=== PATIENT | male | born 1995 | race Caucasian/White ===

== ENCOUNTER 2017-10-09 20:10 | Emergency (ER) | payer SELFPAY ==
--- NOTE | 2017-10-09 20:49 | ER ---
Nurse's Notes [facility] Name: Pablito Randolph Age: 21 yrs Sex: Male : 1995 Arrival Date: 10/09/2017 Time: 20:13 Bed 18 Private MD: Diagnosis: Acute pharyngitis Presentation: 10/09 20:23 Presenting complaint: Patient states: I had tonsillitis and pharyngitis 2 weeks ago. I aj1 took the amoxicillin they gave me at [place] and I felt better but Sunday all the sudden it hurts so bad to swallow that I can't stand it. Even talking hurts. Transition of care: patient was not received from another setting of care. Onset of symptoms was September 26, 2017. Risk Assessment: Do you want to hurt yourself or someone else? Patient reports no desire to harm self or others. Initial Sepsis Screen: Does the patient meet any 2 criteria? No. Patient's initial sepsis screen is negative. Does the patient have a suspected source of infection? No. Patient's initial sepsis screen is negative. Care prior to arrival: None. 20:23 Method Of Arrival: Ambulatory aj1 20:23 Acuity: CHUY 4 aj1 Triage Assessment: 20:25 General: Appears in no apparent distress. uncomfortable, Behavior is calm, cooperative, aj1 appropriate for age. Pain: Complains of pain in left aspect of posterior pharynx and right aspect of posterior pharynx Pain does not radiate. Pain currently is 4 out of 10 on a pain scale. at worst was 8 out of 10 on a pain scale. Quality of pain is described as sharp. EENT: Throat is reddened bilaterally. Historical: - Allergies: 20:25 No Known Allergies; aj1 - Home Meds: 20:25 None [Active]; aj1 - PMHx: 20:25 None; aj1 - PSHx: 20:25 None; aj1 - Immunization history:: Flu vaccine is not up to date. - Social history:: Smoking status: Patient uses tobacco products, 5 cigarettes a day. - Ebola Screening: : No symptoms or risks identified at this time. Screenin:30 Abuse screen: Denies threats or abuse. Denies injuries from another. Nutritional lp1 screening: No deficits noted. Tuberculosis screening: No symptoms or risk factors identified. Fall Risk None identified. Assessment: 20:43 General: Appears in no apparent distress. Behavior is calm, cooperative, appropriate lp1 for age. Pain: Complains of pain in neck and right aspect of posterior pharynx Pain currently is 5 out of 10 on a pain scale. Quality of pain is described as aching. Neuro: Level of Consciousness is awake, alert, obeys commands. Cardiovascular: Patient's skin is warm and dry. Respiratory: Airway is patent Respiratory effort is even, unlabored, Breath sounds are clear bilaterally. GI: No signs and/or symptoms were reported involving the gastrointestinal system. : No signs and/or symptoms were reported regarding the genitourinary system. EENT: Throat has enlarged tonsils. Derm: Skin is pink, warm \T\ dry. Musculoskeletal: Circulation, motion, and sensation intact. Vital Signs: 20:25 BP 115 / 86; Pulse 85; Resp 18; Temp 98.0(TE); Pulse Ox 98% on R/A; Weight 108.86 kg aj1 (R); Height 6 ft. 2 in. (187.96 cm); Pain 4/10; 20:25 Body Mass Index 30.81 (108.86 kg, 187.96 cm) aj1 ED Course: 20:13 Patient arrived in ED. am2 20:16 Radha Alva FNP-C is [facility]. snw 20:16 Simon Brower MD is Attending Physician. snw 20:25 Triage completed. aj1 20:25 Arm band placed on Patient placed in an exam room. aj1 20:30 Verona Denis, RN is Primary Nurse. lp1 20:31 Patient has correct armband on for positive identification. lp1 20:44 No provider procedures requiring assistance completed. Patient did not have IV access lp1 during this emergency room visit. Administered Medications: 20:59 Drug: Decadron 8 mg Route: PO; lp1 21:24 Follow up: Response: No adverse reaction lp1 20:59 Drug: Pepcid 20 mg Route: PO; lp1 21:25 Follow up: Response: No adverse reaction lp1 Outcome: 20:48 Discharge ordered by . snw 21:23 Discharged to home ambulatory. lp1 21:23 Condition: good 21:23 Discharge instructions given to patient, Instructed on discharge instructions, follow up and referral plans. medication usage, Demonstrated understanding of instructions, follow-up care, medications, Prescriptions given X 2. 21:24 Patient left the ED. lp1 Signatures: Emilee Mc RN RN aj1 Radha Alva, SHOT CORE DRILL OPERATOR HELPER-C SHOT CORE DRILL OPERATOR HELPER-Csnw Verona Denis RN RN lp1 Chelle Amato
--- NOTE | 2017-10-09 20:49 | EDPHYS ---
Physician Documentation [facility] Name: Pablito Randolph Age: 21 yrs Sex: Male : 1995 Arrival Date: 10/09/2017 Time: 20:13 Bed 18 Private MD: ED Physician Simon Brower HPI: 10/09 21:18 This 21 yrs old Male presents to ER via Ambulatory with complaints of Sore snw Throat. 21:18 The patient presents with sore throat. The patient describes throat pain as raw, snw scratchy. Onset: The symptoms/episode began/occurred 1 week(s) ago, and became worse and became persistent. Associated signs and symptoms: The patient has no apparent associated signs or symptoms. It is unknown whether or not the patient has had similar symptoms in the past. given amoxil for pharyngitis. Historical: - Allergies: 20:25 No Known Allergies; aj1 - Home Meds: 20:25 None [Active]; aj1 - PMHx: 20:25 None; aj1 - PSHx: 20:25 None; aj1 - Immunization history:: Flu vaccine is not up to date. - Social history:: Smoking status: Patient uses tobacco products, 5 cigarettes a day. - Ebola Screening: : No symptoms or risks identified at this time. ROS: 21:17 Constitutional: Negative for fever, chills, and weight loss, Eyes: Negative for injury, snw pain, redness, and discharge, Neck: Negative for injury, pain, and swelling, Cardiovascular: Negative for chest pain, palpitations, and edema, Respiratory: Negative for shortness of breath, cough, wheezing, and pleuritic chest pain, Abdomen/GI: Negative for abdominal pain, nausea, vomiting, diarrhea, and constipation, Back: Negative for injury and pain, : Negative for injury, bleeding, discharge, and swelling, MS/Extremity: Negative for injury and deformity, Skin: Negative for injury, rash, and discoloration, Neuro: Negative for headache, weakness, numbness, tingling, and seizure. 21:17 ENT: Positive for sore throat. Exam: 21:16 Constitutional: This is a well developed, well nourished patient who is awake, alert, snw and in no acute distress. Head/Face: Normocephalic, atraumatic. Eyes: Pupils equal round and reactive to light, extra-ocular motions intact. Lids and lashes normal. Conjunctiva and sclera are non-icteric and not injected. Cornea within normal limits. Periorbital areas with no swelling, redness, or edema. Neck: Trachea midline, no thyromegaly or masses palpated, and no cervical lymphadenopathy. Supple, full range of motion without nuchal rigidity, or vertebral point tenderness. No Meningismus. Chest/axilla: Normal chest wall appearance and motion. Nontender with no deformity. No lesions are appreciated. Cardiovascular: Regular rate and rhythm with a normal S1 and S2. No gallops, murmurs, or rubs. Normal PMI, no JVD. No pulse deficits. Respiratory: Lungs have equal breath sounds bilaterally, clear to auscultation and percussion. No rales, rhonchi or wheezes noted. No increased work of breathing, no retractions or nasal flaring. Abdomen/GI: Soft, non-tender, with normal bowel sounds. No distension or tympany. No guarding or rebound. No evidence of tenderness throughout. Back: No spinal tenderness. No costovertebral tenderness. Full range of motion. Skin: Warm, dry with normal turgor. Normal color with no rashes, no lesions, and no evidence of cellulitis. MS/ Extremity: Pulses equal, no cyanosis. Neurovascular intact. Full, normal range of motion. Neuro: Awake and alert, GCS 15, oriented to person, place, time, and situation. Cranial nerves II-XII grossly intact. Motor strength 5/5 in all extremities. Sensory grossly intact. Cerebellar exam normal. Normal gait. 21:16 ENT: External ear(s): are unremarkable, Ear canal(s): are normal, TM's: are normal, Nose: is normal, Mouth: is normal, Posterior pharynx: Tonsils: bilaterally enlarged, with erythema, erythema, Voice: per pt. Vital Signs: 20:25 BP 115 / 86; Pulse 85; Resp 18; Temp 98.0(TE); Pulse Ox 98% on R/A; Weight 108.86 kg [facility] (R); Height 6 ft. 2 in. (187.96 cm); Pain 4/10; 20:25 Body Mass Index 30.81 (108.86 kg, 187.96 cm) [facility] MDM: 20:30 Patient medically screened. snw 21:17 Data reviewed: vital signs, nurses notes. Data interpreted: Pulse oximetry: on room air snw is 98 %. Interpretation: normal. Counseling: I had a detailed discussion with the patient and/or guardian regarding: the historical points, exam findings, and any diagnostic results supporting the discharge/admit diagnosis, the presence of at least one elevated blood pressure reading (>120/80) during this emergency department visit, the need for outpatient follow up, to return to the emergency department if symptoms worsen or persist or if there are any questions or concerns that arise at home. Special discussion: I have referred the patient to see his PCP for further evaluation of high blood pressure. Based on the history and exam findings, there is no indication for further emergent testing or inpatient evaluation. I discussed with the patient/guardian the need to see the primary care provider for further evaluation of the symptoms. ED course: no trismus. 10/09 20:17 Order name: Strep; Complete Time: 21:11 snw 10/09 21:04 Order name: Throat Culture EDMS Administered Medications: 20:59 Drug: Decadron 8 mg Route: PO; lp1 21:24 Follow up: Response: No adverse reaction lp1 20:59 Drug: Pepcid 20 mg Route: PO; lp1 21:25 Follow up: Response: No adverse reaction lp1 Disposition: 10/09/17 20:48 Discharged to Home. Impression: Acute pharyngitis. - Condition is Stable. - Discharge Instructions: Fever, Adult, Pharyngitis, Rehydration, Adult. - Prescriptions for Prednisone 20 mg Oral Tablet - take 2 tablet by ORAL route once daily for 5 days; 10 tablet. Zithromax 500 mg Oral Tablet - take 1 tablet by ORAL route once daily for 5 days; 5 tablet. - Work release form, Medication Reconciliation Form, Thank You Letter, Antibiotic Education, Prescription Opioid Use form. - Follow up: Private Physician; When: 2 - 3 days; Reason: Recheck today's complaints, Continuance of care, Re-evaluation by your physician. Follow up: Emergency Department; When: As needed; Reason: Worsening of condition. - Problem is an acute exacerbation. - Symptoms have worsened. Addendum: 10/11/2017 06:57 Co-signature as Attending Physician, Simon Brower MD I agree with the assessment and c lozano plan of care. Signatures: Dispatcher [employer] EDEmilee Caldwell, RN RN aj1 Simon Brower MD MD cha Therrien, Shelly, CURRICULUM MANAGER-C CURRICULUM MANAGER-Csnw Verona Denis, RN RN lp1 Corrections: (The following items were deleted from the chart) 10/09 20:56 20:48 10/09/2017 20:48 Discharged to Home. Impression: Acute pharyngitis. Condition is snw Stable. Forms are Medication Reconciliation Form, Thank You Letter, Antibiotic Education, Prescription Opioid Use. Follow up: Private Physician; When: 2 - 3 days; Reason: Recheck today's complaints, Continuance of care, Re-evaluation by your physician. Follow up: Emergency Department; When: As needed; Reason: Worsening of condition. snw 21:24 20:56 10/09/2017 20:48 Discharged to Home. Impression: Acute pharyngitis. Condition is lp1 Stable. Discharge Instructions: Fever, Adult, Pharyngitis, Rehydration, Adult. Prescriptions for Prednisone 20 mg Oral Tablet - take 2 tablet by ORAL route once daily for 5 days; 10 tablet, Zithromax 500 mg Oral Tablet - take 1 tablet by ORAL route once daily for 5 days; 5 tablet. and Forms are Medication Reconciliation Form, Thank You Letter, Antibiotic Education, Prescription Opioid Use. Follow up: Private Physician; When: 2 - 3 days; Reason: Recheck today's complaints, Continuance of care, Re-evaluation by your physician. Follow up: Emergency Department; When: As needed; Reason: Worsening of condition. Problem is an acute exacerbation. Symptoms have worsened. snw
[2017-10-09] MEDS ORDERED: FAMOTIDINE 20 MG TAB ONE (20:53)
[2017-10-09] MEDS ORDERED: DEXAMETHASONE 4 MG TAB ONE (20:53)
== END 2017-10-09 21:24 | disposition home or self-care (01) ==
LOC: ER 20:10
DX: J02.9 Acute pharyngitis, unspecified (principal); F17.210 Nicotine dependence, cigarettes, uncomplicated
CPT/HCPCS: 87070; 87081; 99283

== ENCOUNTER 2018-01-13 13:29 | Emergency (ER) | payer SELFPAY ==
[2018-01-13] MEDS ORDERED: DEXAMETHASONE 10 MG/ML VIAL ONE (14:49)
[2018-01-13] MEDS ORDERED: CLINDAMYCIN IV 150 MG/ML (4 mL) VIAL ONE (14:51)
[2018-01-13] MEDS ORDERED: IBUPROFEN 400 MG TAB ONE (15:03)
--- NOTE | 2018-01-13 15:54 | ER ---
Nurse's Notes [facility] Name: Pablito Randolph Age: 22 yrs Sex: Male : 1995 Arrival Date: 01/13/2018 Time: 13:32 Bed 30 Private MD: None, None Diagnosis: Acute pharyngitis Presentation: 01/13 14:11 Presenting complaint: Patient states: " I think I have strep again. I've had it 5 times ph in the last 3 months." Pt reports pain began yesterday, throat red and swollen w/ white patches noted, low grade fever in triage, denies N/V. Transition of care: patient was not received from another setting of care. Onset of symptoms was January 13, 2018. Risk Assessment: Do you want to hurt yourself or someone else? Patient reports no desire to harm self or others. Initial Sepsis Screen: Does the patient meet any 2 criteria? No. Patient's initial sepsis screen is negative. Does the patient have a suspected source of infection? No. Patient's initial sepsis screen is negative. Care prior to arrival: None. 14:11 Method Of Arrival: Ambulatory ph 14:11 Acuity: CHUY 4 ph Historical: - Allergies: 14:13 No Known Allergies; ph - Home Meds: 14:13 None [Active]; ph - PMHx: 14:13 None; ph - PSHx: 14:13 None; ph - Immunization history:: Adult Immunizations unknown. - Social history:: Smoking status: unknown. - Ebola Screening: : No symptoms or risks identified at this time. Screenin:33 Abuse screen: Denies threats or abuse. Denies injuries from another. Nutritional sv screening: No deficits noted. Tuberculosis screening: No symptoms or risk factors identified. Fall Risk None identified. Assessment: 14:32 General: Appears in no apparent distress. uncomfortable, Behavior is calm, cooperative, sv appropriate for age. Pain: Complains of pain in uvula, left aspect of posterior pharynx and right aspect of posterior pharynx Pain currently is 10 out of 10 on a pain scale. Quality of pain is described as burning, Pain began 1 day ago. Is continuous. Neuro: Level of Consciousness is awake, alert, obeys commands, Oriented to person, place, time, situation, Moves all extremities. Full function Gait is steady. Cardiovascular: Patient's skin is warm and dry. Respiratory: Airway is patent Respiratory effort is even, unlabored, Respiratory pattern is regular, symmetrical. EENT: Oral mucosa is moist. Poor dentition noted. Throat is reddened has patchy exudate has enlarged tonsils bilaterally. Derm: Skin is normal. 16:09 Reassessment: Patient appears in no apparent distress at this time. Patient and/or sv family updated on plan of care and expected duration. Pain level reassessed. Patient is alert, oriented x 3, equal unlabored respirations, skin warm/dry/pink. Vital Signs: 14:12 BP 144 / 79; Pulse 105; Resp 20; Temp 100.2(O); Pulse Ox 97% on R/A; Weight 108.86 kg; ph Height 6 ft. 2 in. (187.96 cm); Pain 10/10; 14:12 Body Mass Index 30.81 (108.86 kg, 187.96 cm) ph ED Course: 13:32 Patient arrived in ED. sb2 13:33 None, None is Private Physician. sb2 14:12 Triage completed. ph 14:13 Arm band placed on Patient placed in waiting room, Patient notified of wait time. ph 14:24 Ebonie Ramos RN is Primary Nurse. sv 14:27 Jose Palmer PA is PHCP. jmm 14:27 Simon Brower MD is Attending Physician. jmm 14:28 Strep Sent. sv 14:33 Patient has correct armband on for positive identification. Bed in low position. Door sv closed. Head of bed elevated. 15:13 Throat Culture Sent. sv 15:53 Ebonie Franklin MD is Referral Physician. [facility] 16:09 No provider procedures requiring assistance completed. Patient did not have IV access sv during this emergency room visit. Administered Medications: 14:56 Drug: Clindamycin 300 mg Route: IM; Site: left gluteus; sv 15:14 Follow up: Response: No adverse reaction sv 14:56 Drug: Clindamycin 300 mg Route: IM; Site: right gluteus; sv 14:57 Drug: Dexamethasone 10 mg Route: IM; Site: left gluteus; sv 15:14 Follow up: Response: No adverse reaction sv 15:02 Drug: Motrin 800 mg Route: PO; sv 15:14 Follow up: Response: No adverse reaction sv Outcome: 15:53 Discharge ordered by MD. clayton 16:09 Discharged to home ambulatory, with friend. sv 16:09 Condition: stable 16:09 Discharge instructions given to patient, Instructed on discharge instructions, follow up and referral plans. medication usage, increase fluids Demonstrated understanding of instructions, follow-up care, medications, Prescriptions given X 1. 16:10 Patient left the ED. sv Signatures: Ebonie Ramos RN RN Jose Palmer PA PA jmm Hall, Patricia, RN RN Hal, Nayely sb2
--- NOTE | 2018-01-13 15:54 | EDPHYS ---
Physician Documentation [facility] Name: Pablito Randolph Age: 22 yrs Sex: Male : 1995 Arrival Date: 01/13/2018 Time: 13:32 Bed 30 Private MD: None, None ED Physician Simon Brower HPI: 01/13 14:44 This 22 yrs old Male presents to ER via Ambulatory with complaints of Fever, jmm Sore Throat. 14:44 The patient presents with sore throat. Onset: The symptoms/episode began/occurred jmm gradually, 1 day(s) ago. This is a 22 year old male with no chronic medical conditions that presents to the ED with sore throat and fever. Patient states he has been diagnosed with strep pharyngitis multiple times over the past 3 months. . Historical: - Allergies: 14:13 No Known Allergies; ph - Home Meds: 14:13 None [Active]; ph - PMHx: 14:13 None; ph - PSHx: 14:13 None; ph - Immunization history:: Adult Immunizations unknown. - Social history:: Smoking status: unknown. - Ebola Screening: : No symptoms or risks identified at this time. ROS: 14:44 Eyes: Negative for injury, pain, redness, and discharge. jm 14:44 Neck: Negative for injury, pain, and swelling, Cardiovascular: Negative for chest pain, palpitations, and edema, Respiratory: Negative for shortness of breath, cough, wheezing, and pleuritic chest pain. 14:44 Constitutional: Positive for fever. 14:44 ENT: Positive for sore throat. 14:50 All other systems are negative. [facility] Exam: 14:50 Head/Face: atraumatic. [facility] 14:50 Cardiovascular: Regular rate and rhythm. No edema appreciated Respiratory: Normal respirations, no respiratory distress appreciated 14:50 Constitutional: The patient appears in no acute distress, alert, awake. 14:50 ENT: Posterior pharynx: Tonsils: bilaterally enlarged, with erythema, with exudate, Uvula: midline, swelling, that is moderate, erythema, that is moderate, exudate, that is moderate, peritonsillar mass, is not appreciated, pooling of secretions, is not appreciated. 14:50 Skin: Appearance: Color: normal in color. 14:50 Neuro: Orientation: is normal, Mentation: is normal, Memory: is normal. 14:50 Psych: Behavior/mood is pleasant, cooperative. Vital Signs: 14:12 BP 144 / 79; Pulse 105; Resp 20; Temp 100.2(O); Pulse Ox 97% on R/A; Weight 108.86 kg; ph Height 6 ft. 2 in. (187.96 cm); Pain 10/10; 14:12 Body Mass Index 30.81 (108.86 kg, 187.96 cm) ph MDM: 14:40 Patient medically screened. [facility] 15:40 Data reviewed: vital signs, nurses notes. Counseling: I had a detailed discussion with [facility] the patient and/or guardian regarding: the historical points, exam findings, and any diagnostic results supporting the discharge/admit diagnosis, the need for outpatient follow up, to return to the emergency department if symptoms worsen or persist or if there are any questions or concerns that arise at home. 15:52 Response to treatment: the patient's symptoms have markedly improved after treatment. [facility] 01/13 14:11 Order name: Strep 01/13 14:11 Order name: Group A Streptococcus Rapid Sc; Complete Time: 15:33 EDMS 01/13 15:11 Order name: Throat Culture EDMS Administered Medications: 14:56 Drug: Clindamycin 300 mg Route: IM; Site: left gluteus; sv 15:14 Follow up: Response: No adverse reaction sv 14:56 Drug: Clindamycin 300 mg Route: IM; Site: right gluteus; sv 14:57 Drug: Dexamethasone 10 mg Route: IM; Site: left gluteus; sv 15:14 Follow up: Response: No adverse reaction sv 15:02 Drug: Motrin 800 mg Route: PO; sv 15:14 Follow up: Response: No adverse reaction sv Disposition: 01/14 06:48 Co-signature as Attending Physician, Simon Brower MD I agree with the assessment and [facility] plan of care. Disposition: 01/13/18 15:53 Discharged to Home. Impression: Acute pharyngitis. - Condition is Stable. - Discharge Instructions: Pharyngitis. - Prescriptions for Clindamycin HCl 150 mg Oral Capsule - take 2 capsule by ORAL route every 6 hours for 10 days; 80 capsule. - Medication Reconciliation Form, Thank You Letter, Antibiotic Education, Prescription Opioid Use form. - Follow up: Ebonie Franklin MD; When: 2 - 3 days; Reason: Recheck today's complaints, Continuance of care, Re-evaluation by your physician. - Notes: Please follow up with ENT for further evaluation. Please return to the ED if you develop difficulty breathing, increased swelling, vomiting, drooling, or any other concerning symptoms. Signatures: Dispatcher [employer] EDEbonie Aponte, LEILA RN Simon Sosa MD MD cha Mickail, Joel, PA PA jmm Hall, Patricia, RN RN ph Corrections: (The following items were deleted from the chart) 01/13 16:10 15:53 01/13/2018 15:53 Discharged to Home. Impression: Acute pharyngitis. Condition is sv Stable. Forms are Medication Reconciliation Form, Thank You Letter, Antibiotic Education, Prescription Opioid Use. Follow up: Ebonie Franklin; When: 2 - 3 days; Reason: Recheck today's complaints, Continuance of care, Re-evaluation by your physician. matilde
== END 2018-01-13 16:10 | disposition home or self-care (01) ==
LOC: ER 13:29
DX: J02.9 Acute pharyngitis, unspecified (principal); R50.9 Fever, unspecified
CPT/HCPCS: 87070; 87081; 96372; 99283; J1100; S0077

== ENCOUNTER 2018-01-25 22:15 | Emergency (ER) | payer SELFPAY ==
[2018-01-25] MEDS ORDERED: DEXAMETHASONE 4 MG/ML VIAL ONE (22:43)
[2018-01-25] MEDS ORDERED: KETOROLAC 30 MG/ML INJ ONE (22:44)
[2018-01-25] MEDS ORDERED: CLINDAMYCIN 900MG/D5W 900 MG/50 ML BAG IV ONE (22:44)
[2018-01-25] MEDS ORDERED: NA CHLORIDE 0.9% 1,000 ML ONE (22:44)
--- NOTE | 2018-01-25 23:18 | EDPHYS ---
Physician Documentation [facility] Name: Pablito Randolph Age: 22 yrs Sex: Male : 1995 Arrival Date: 01/25/2018 Time: 22:16 Bed 19 Private MD: ED Physician Ra Mack HPI: 01/25 22:34 This 22 yrs old Male presents to ER via Ambulatory with complaints of Sore wa Throat. 22:34 The patient presents with sore throat. The patient describes throat pain as constant. wa Onset: The symptoms/episode began/occurred 2 day(s) ago. Severity of symptoms: At their worst the symptoms were moderate, in the emergency department the symptoms are actually worse. Modifying factors: The symptoms are alleviated by nothing, the symptoms are aggravated by swallowing. Associated signs and symptoms: Pertinent positives: fever, Pertinent negatives nausea, rhinorrhea, vomiting. The patient has not experienced similar symptoms in the past. The patient has not recently seen a physician. Historical: - Allergies: 22:30 No Known Allergies; tl1 - Home Meds: 22:30 None [Active]; tl1 - PMHx: 22:30 ADD/ADHD; tl1 - PSHx: 22:30 None; tl1 - Immunization history:: Adult Immunizations up to date. - Social history:: Smoking status: Patient uses tobacco products, smokes one-half pack cigarettes per day. - Ebola Screening: : Patient negative for fever greater than or equal to 101.5 degrees Fahrenheit, and additional compatible Ebola Virus Disease symptoms Patient denies exposure to infectious person Patient denies travel to an Ebola-affected area in the 21 days before illness onset. - Family history:: not pertinent. - Hospitalizations: : No recent hospitalization is reported. ROS: 22:39 Eyes: Negative for injury, pain, redness, and discharge, Neck: Negative for injury, wa pain, and swelling, Cardiovascular: Negative for chest pain, palpitations, and edema, Respiratory: Negative for shortness of breath, cough, wheezing, and pleuritic chest pain, Abdomen/GI: Negative for abdominal pain, nausea, vomiting, diarrhea, and constipation, Back: Negative for injury and pain, MS/Extremity: Negative for injury and deformity, Skin: Negative for injury, rash, and discoloration, Neuro: Negative for headache, weakness, numbness, tingling, and seizure, Psych: Negative for depression, anxiety, suicide ideation, homicidal ideation, and hallucinations. 22:39 Constitutional: Positive for fever. 22:39 ENT: Positive for sore throat, Negative for nasal discharge, rhinorrhea, sinus congestion. 22:39 All other systems are negative. Exam: 22:40 Constitutional: This is a well developed, well nourished patient who is awake, alert, wa and in no acute distress. Head/Face: Normocephalic, atraumatic. Eyes: Pupils equal round and reactive to light, extra-ocular motions intact. Lids and lashes normal. Conjunctiva and sclera are non-icteric and not injected. Cornea within normal limits. Periorbital areas with no swelling, redness, or edema. Neck: Trachea midline, no thyromegaly or masses palpated, and no cervical lymphadenopathy. Supple, full range of motion without nuchal rigidity, or vertebral point tenderness. No Meningismus. Cardiovascular: Regular rate and rhythm with a normal S1 and S2. No gallops, murmurs, or rubs. Normal PMI, no JVD. No pulse deficits. Respiratory: Lungs have equal breath sounds bilaterally, clear to auscultation and percussion. No rales, rhonchi or wheezes noted. No increased work of breathing, no retractions or nasal flaring. Abdomen/GI: Soft, non-tender, with normal bowel sounds. No distension or tympany. No guarding or rebound. No evidence of tenderness throughout. Back: No spinal tenderness. No costovertebral tenderness. Full range of motion. Skin: Warm, dry with normal turgor. Normal color with no rashes, no lesions, and no evidence of cellulitis. MS/ Extremity: Pulses equal, no cyanosis. Neurovascular intact. Full, normal range of motion. Neuro: Awake and alert, GCS 15, oriented to person, place, time, and situation. Cranial nerves II-XII grossly intact. Motor strength 5/5 in all extremities. Sensory grossly intact. Cerebellar exam normal. Normal gait. 22:40 ENT: Posterior pharynx: Tonsils: bilaterally enlarged, with erythema, Uvula: midline, non-edematous, erythema, that is moderate, exudate, that is mild, peritonsillar mass, is not appreciated. Vital Signs: 22:31 BP 138 / 96; Pulse 102; Resp 17; Temp 98.6; Pulse Ox 99% ; Pain 8/10; tl1 23:31 BP 111 / 68; Pulse 94; Resp 16; Temp 98.7; Pulse Ox 98% on R/A; Pain 3/10; tl1 MDM: 22:26 Patient medically screened. me 22:43 Differential diagnosis: pharyngitis, viral syndrome r/o strep. will treat symptoms and wa reassess. 23:15 Data reviewed: vital signs, nurses notes. me 23:16 Test interpretation: by ED physician or midlevel provider: strep screen negative. wa Response to treatment: the patient's symptoms have markedly improved after treatment. 01/25 22:32 Order name: Strep me 01/25 23:06 Order name: Throat Culture [facility] 01/25 22:32 Order name: IV Start; Complete Time: 22:34 me Administered Medications: 22:46 Drug: NS 0.9% 1000 ml Route: IV; Rate: 1 bolus; Site: right antecubital; tl2 23:33 Follow up: IV Status: Completed infusion tl1 22:46 Drug: TORadol 30 mg Route: IVP; Site: right antecubital; tl2 23:29 Follow up: Response: No adverse reaction; Marked relief of symptoms; Pain is decreased tl1 22:47 Drug: Decadron - Dexamethasone 10 mg Route: IVP; Site: right antecubital; tl2 23:29 Follow up: Response: No adverse reaction; Marked relief of symptoms; Pain is decreased tl1 22:47 Drug: Clindamycin 900 mg Route: IVPB; Infused Over: 30 mins; Site: right antecubital; tl2 23:11 Follow up: IV Status: Completed infusion tl1 Disposition: 01/25/18 23:17 Discharged to Home. Impression: Acute pharyngitis. - Condition is Stable. - Prescriptions for Augmentin 875- 125 mg Oral Tablet - take 1 tablet by ORAL route every 12 hours for 7 days; 14 tablet. Prednisone 20 mg Oral Tablet - take 2 tablet by ORAL route once daily for 4 days; 8 tablet. Ibuprofen 600 mg Oral Tablet - take 1 tablet by ORAL route every 6 hours As needed take with food; 30 tablet. - Medication Reconciliation Form, Thank You Letter, Antibiotic Education, Prescription Opioid Use form. - Follow up: Ebonie Franklin MD; When: 1 - 2 days; Reason: Recheck today's complaints, Re-evaluation by your physician. - Problem is new. - Symptoms have improved. - Notes: take medication as prescribed. see the ENT doctor for further evaluation into why you keep getting throat infections Signatures: Dispatcher [employer]SC Naty Joshua, RN RN tl1 Sunita Tobar RN RN tl2 Ra Mack MD MD wa Corrections: (The following items were deleted from the chart) 23:33 23:17 01/25/2018 23:17 Discharged to Home. Impression: Acute pharyngitis. Condition is tl1 Stable. Forms are Medication Reconciliation Form, Thank You Letter, Antibiotic Education, Prescription Opioid Use. Follow up: Ebonie Franklin; When: 1 - 2 days; Reason: Recheck today's complaints, Re-evaluation by your physician. Problem is new. Symptoms have improved. wa
--- NOTE | 2018-01-25 23:18 | ER ---
Nurse's Notes [facility] Name: Pablito Randolph Age: 22 yrs Sex: Male : 1995 Arrival Date: 01/25/2018 Time: 22:16 Bed 19 Private MD: Diagnosis: Acute pharyngitis Presentation: 01/25 22:28 Presenting complaint: Patient states: I have a recurring sore throat. I just finished tl1 antibiotics yesterday. My left ear also hurts. Transition of care: patient was not received from another setting of care. Onset of symptoms was January 22, 2018. Risk Assessment: Do you want to hurt yourself or someone else? Patient reports no desire to harm self or others. Initial Sepsis Screen: Does the patient meet any 2 criteria? HR > 90 bpm. No. Patient's initial sepsis screen is negative. Does the patient have a suspected source of infection? No. Patient's initial sepsis screen is negative. Care prior to arrival: Medication(s) given: antibiotic therapy. 22:28 Method Of Arrival: Ambulatory tl1 22:28 Acuity: CHUY 4 tl1 Triage Assessment: 23:32 General: Behavior is calm, cooperative, appropriate for age. tl1 Historical: - Allergies: 22:30 No Known Allergies; tl1 - Home Meds: 22:30 None [Active]; tl1 - PMHx: 22:30 ADD/ADHD; tl1 - PSHx: 22:30 None; tl1 - Immunization history:: Adult Immunizations up to date. - Social history:: Smoking status: Patient uses tobacco products, smokes one-half pack cigarettes per day. - Ebola Screening: : Patient negative for fever greater than or equal to 101.5 degrees Fahrenheit, and additional compatible Ebola Virus Disease symptoms Patient denies exposure to infectious person Patient denies travel to an Ebola-affected area in the 21 days before illness onset. - Family history:: not pertinent. - Hospitalizations: : No recent hospitalization is reported. Screenin:33 Abuse screen: Denies threats or abuse. Denies injuries from another. Nutritional tl1 screening: No deficits noted. Tuberculosis screening: No symptoms or risk factors identified. Fall Risk IV access (20 points). Assessment: 22:31 General: Appears in no apparent distress. Pain: Complains of pain in left aspect of tl1 posterior pharynx and right aspect of posterior pharynx Pain currently is 8 out of 10 on a pain scale. Quality of pain is described as sharp, stinging. Neuro: Level of Consciousness is awake, alert, obeys commands. Cardiovascular: Denies chest pain. Respiratory: Airway is patent Trachea midline Respiratory effort is even, unlabored, Breath sounds are clear bilaterally. GI: Bowel sounds present X 4 quads. Abd is soft and non tender X 4 quads. : No signs and/or symptoms were reported regarding the genitourinary system. EENT: Throat is reddened has enlarged tonsils Reports pain when swallowing. Derm: No deficits noted. 23:31 Reassessment: Patient and/or family updated on plan of care and expected duration. Pain tl1 level reassessed. Patient is alert, oriented x 3, equal unlabored respirations, skin warm/dry/pink. Patient states feeling better. Patient states symptoms have improved. Vital Signs: 22:31 BP 138 / 96; Pulse 102; Resp 17; Temp 98.6; Pulse Ox 99% ; Pain 8/10; tl1 23:31 BP 111 / 68; Pulse 94; Resp 16; Temp 98.7; Pulse Ox 98% on R/A; Pain 3/10; tl1 ED Course: 22:16 Patient arrived in ED. es 22:26 Ra Mack MD is Attending Physician. wa 22:28 Naty Joshua, LEILA is Primary Nurse. tl1 22:30 Triage completed. tl1 22:31 Arm band placed on right wrist. tl1 22:31 Patient has correct armband on for positive identification. Bed in low position. Call tl1 light in reach. Side rails up X 1. 22:33 No provider procedures requiring assistance completed. Inserted saline lock: 20 gauge tl1 in right antecubital area, using aseptic technique. Blood collected. 23:16 Ebonie Franklin MD is Referral Physician. wa 23:31 IV discontinued, intact, bleeding controlled, No redness/swelling at site. Pressure tl1 dressing applied. Administered Medications: 22:46 Drug: NS 0.9% 1000 ml Route: IV; Rate: 1 bolus; Site: right antecubital; tl2 23:33 Follow up: IV Status: Completed infusion tl1 22:46 Drug: TORadol 30 mg Route: IVP; Site: right antecubital; tl2 23:29 Follow up: Response: No adverse reaction; Marked relief of symptoms; Pain is decreased tl1 22:47 Drug: Decadron - Dexamethasone 10 mg Route: IVP; Site: right antecubital; tl2 23:29 Follow up: Response: No adverse reaction; Marked relief of symptoms; Pain is decreased tl1 22:47 Drug: Clindamycin 900 mg Route: IVPB; Infused Over: 30 mins; Site: right antecubital; tl2 23:11 Follow up: IV Status: Completed infusion tl1 Outcome: 23:17 Discharge ordered by . darien 23:31 Discharged to home ambulatory. tl1 23:31 Condition: good 23:31 Discharge instructions given to patient, Instructed on discharge instructions, follow up and referral plans. medication usage, Demonstrated understanding of instructions, follow-up care, medications, Prescriptions given X 3. 23:33 Patient left the ED. tl1 Signatures: Joyce Quinones Tonya, RN RN tl1 Sunita Tobar RN RN tl2 Ra Mack MD MD wa
== END 2018-01-25 23:33 | disposition home or self-care (01) ==
LOC: ER 22:15
DX: J02.9 Acute pharyngitis, unspecified (principal); F17.210 Nicotine dependence, cigarettes, uncomplicated
CPT/HCPCS: 87070; 87081; 96365; 96375; 99284; J7030

== ENCOUNTER 2018-03-05 08:55 | Emergency (ER) | payer SELFPAY ==
--- NOTE | 2018-03-05 09:32 | ER ---
Nurse's Notes [facility] Name: Pablito Randolph Age: 22 yrs Sex: Male : 1995 Arrival Date: 03/05/2018 Time: 08:57 Bed 20 Private MD: Diagnosis: Otitis media, unspecified, left ear Presentation: 03/05 09:08 Presenting complaint: Patient states: pressure to L ear started on , has been ch getting worse, this morning it was pounding. feels muffled, and i am slightly congested. Transition of care: patient was not received from another setting of care. Onset of symptoms was February 28, 2018. Risk Assessment: Do you want to hurt yourself or someone else? Patient reports no desire to harm self or others. Initial Sepsis Screen: Does the patient meet any 2 criteria? No. Patient's initial sepsis screen is negative. Does the patient have a suspected source of infection? No. Patient's initial sepsis screen is negative. Care prior to arrival: Medication(s) given: Motrin, 600 mg. 09:08 Method Of Arrival: Ambulatory 09:08 Acuity: CHUY 5 ch Triage Assessment: 09:09 General: Appears in no apparent distress. comfortable, Behavior is calm, cooperative, ch appropriate for age. Pain: Complains of pain in left ear. EENT: Reports pain in left ear. Historical: - Allergies: 09:09 No Known Allergies; ch - Home Meds: 09:09 None [Active]; ch - PMHx: 09:09 ADD/ADHD; ch - PSHx: 09:09 None; ch - Immunization history:: Adult Immunizations up to date, Last tetanus immunization: not indicated for visit today. unknown, Flu vaccine is not up to date. - Social history:: Smoking status: Patient uses tobacco products, smokes one-half pack cigarettes per day, Patient/guardian denies using alcohol, street drugs. - Ebola Screening: : Patient negative for fever greater than or equal to 101.5 degrees Fahrenheit, and additional compatible Ebola Virus Disease symptoms Patient denies exposure to infectious person Patient denies travel to an Ebola-affected area in the 21 days before illness onset No symptoms or risks identified at this time. Screenin:10 Abuse screen: Denies threats or abuse. Nutritional screening: No deficits noted. rb1 Tuberculosis screening: No symptoms or risk factors identified. Fall Risk None identified. Assessment: 09:10 General: Appears in no apparent distress. comfortable, Behavior is calm, cooperative, rb1 Denies fever. Pain: Complains of pain in left ear Pain currently is 4 out of 10 on a pain scale. Pain began . Neuro: Level of Consciousness is awake, alert, obeys commands, Oriented to person, place, time, situation. Cardiovascular: Capillary refill < 3 seconds is brisk in bilateral fingers. Respiratory: Airway is patent Respiratory effort is even, unlabored, Respiratory pattern is regular, symmetrical. GI: Reports diarrhea. : No signs and/or symptoms were reported regarding the genitourinary system. EENT: Reports nasal congestion. Derm: Skin is pink, warm \T\ dry. Musculoskeletal: Range of motion: intact in all extremities. Vital Signs: 09:09 BP 136 / 65; Pulse 59; Resp 12; Temp 97.7; Pulse Ox 97% on R/A; Weight 108.86 kg; Height 6 ft. 2 in. (187.96 cm); Pain 5/10; 09:09 Body Mass Index 30.81 (108.86 kg, 187.96 cm) ED Course: 08:57 Patient arrived in ED. as 09:09 Triage completed. 09:09 Arm band placed on left wrist. Patient placed in an exam room, on a stretcher. 09:10 Leticia Zayas, RN is Primary Nurse. [facility] 09:10 Patient has correct armband on for positive identification. Bed in low position. Call rb1 light in reach. Side rails up X 1. Pulse ox on. NIBP on. 09:15 Simon Erazo PA is PHCP. cp 09:15 Иван Ewing MD is Attending Physician. cp 09:37 No provider procedures requiring assistance completed. Patient did not have IV access rb1 during this emergency room visit. Administered Medications: No medications were administered Outcome: 09:31 Discharge ordered by . cp 09:37 Patient left the ED. hb 09:37 Discharged to home ambulatory. rb1 09:37 Condition: stable 09:37 Discharge instructions given to patient, Instructed on discharge instructions, follow up and referral plans. 09:37 Instructed on medication usage, Demonstrated understanding of instructions, follow-up rb1 care, medications, Prescriptions given X 2. Signatures: An Boyce RN RN Bernie Alva Corey, PA PA cp Barber, Rebecca, RN RN rb1 Bisi Alvarez RN RN Corrections: (The following items were deleted from the chart) 09:24 General: Appears in no apparent distress. comfortable, Behavior is calm, rb1 cooperative, Denies fever, rb1 09:24 Pain: Complains of pain in left ear Pain currently is 4 out of 10 on a pain rb1 scale. Pain began rb1 09:24 Neuro: Level of Consciousness is awake, alert, obeys commands, Oriented to rb1 person, place, time, situation, rb1 09:24 Cardiovascular: Capillary refill < 3 seconds is brisk in bilateral fingers rb1 rb1 09:24 Respiratory: Airway is patent Respiratory effort is even, unlabored, Respiratory rb1 pattern is regular, symmetrical, rb1 09:24 GI: Reports diarrhea, rb1 rb1 09:24 : No signs and/or symptoms were reported regarding the genitourinary system. [id number] 09:24 Respiratory: rb1 rb1 09:24 EENT: Reports nasal congestion rb1 rb1 09:24 Derm: Skin is pink, warm \T\ dry. rb1 rb1 09:24 Musculoskeletal: Range of motion: intact in all extremities, rb1 rb1
--- NOTE | 2018-03-05 09:32 | EDPHYS ---
Physician Documentation [facility] Name: Pablito Randolph Age: 22 yrs Sex: Male : 1995 Arrival Date: 03/05/2018 Time: 08:57 Bed 20 Private MD: ED Physician Иван Ewing HPI: 03/05 09:24 This 22 yrs old Male presents to ER via Ambulatory with complaints of Ear cp Pain. 09:24 The patient presents with a fullness, hearing loss, partial, pain, that is acute. The cp complaints affect the left ear. Onset: The symptoms/episode began/occurred last week. Associated signs and symptoms: Pertinent positives: nasal congestion, cough, Pertinent negatives: fever, shortness of breath, vertigo. Severity of symptoms: in the emergency department the symptoms are unchanged despite home interventions. Historical: - Allergies: 09:09 No Known Allergies; ch - Home Meds: : None [Active]; ch - PMHx: 09:09 ADD/ADHD; ch - PSHx: 09:09 None; ch - Immunization history:: Adult Immunizations up to date, Last tetanus immunization: not indicated for visit today. unknown, Flu vaccine is not up to date. - Social history:: Smoking status: Patient uses tobacco products, smokes one-half pack cigarettes per day, Patient/guardian denies using alcohol, street drugs. - Ebola Screening: : Patient negative for fever greater than or equal to 101.5 degrees Fahrenheit, and additional compatible Ebola Virus Disease symptoms Patient denies exposure to infectious person Patient denies travel to an Ebola-affected area in the 21 days before illness onset No symptoms or risks identified at this time. ROS: 09:26 Eyes: Negative for injury, pain, redness, and discharge. cp 09:26 Constitutional: Negative for body aches, chills, fever, poor PO intake. 09:26 ENT: Positive for ear pain, sinus congestion, Negative for drainage from ear(s), difficulty swallowing, difficulty handling secretions. 09:26 Respiratory: Positive for cough, Negative for shortness of breath, wheezing. 09:26 Abdomen/GI: Negative for abdominal pain, vomiting, diarrhea, constipation. 09:26 Skin: Negative for cellulitis, rash. 09:26 Neuro: Negative for altered mental status, headache, weakness. 09:26 All other systems are negative. Exam: 09:27 Head/Face: Normocephalic, atraumatic. cp 09:27 Constitutional: The patient appears in no acute distress, alert, awake, non-toxic, well developed, well nourished. 09:27 Eyes: Periorbital structures: appear normal, Conjunctiva: normal, no exudate, no injection, Lids and lashes: appear normal, bilaterally. 09:27 ENT: External ear(s): are unremarkable, Ear canal(s): are normal, clear, TM's: bulging, is not appreciated, on the left, erythema, that is mild, on the left, Examination of the other ear shows no obvious abnormality, Nose: nasal drainage, that is minimal, Mouth: Lips: moist, Oral mucosa: moist, Posterior pharynx: is normal, airway is patent, no erythema, no exudate. 09:27 Neck: ROM/movement: is normal, is supple, without pain, no range of motions limitations, no nuchal rigidity. 09:27 Chest/axilla: Inspection: normal, Palpation: is normal, no crepitus, no tenderness. 09:27 Cardiovascular: Rate: bradycardic, Rhythm: regular. 09:27 Respiratory: the patient does not display signs of respiratory distress, Respirations: normal, no use of accessory muscles, no retractions, no splinting, no tachypnea, labored breathing, is not present, Breath sounds: bronchial sounds, are not appreciated, decreased breath sounds, are not appreciated, stridor, is not appreciated, + upper airway congestion. 09:27 Abdomen/GI: Exam negative for discomfort, distension, guarding, Inspection: abdomen appears normal. 09:27 Skin: cellulitis, is not appreciated, no rash present. Vital Signs: 09:09 BP 136 / 65; Pulse 59; Resp 12; Temp 97.7; Pulse Ox 97% on R/A; Weight 108.86 kg; ch Height 6 ft. 2 in. (187.96 cm); Pain 5/10; 09:09 Body Mass Index 30.81 (108.86 kg, 187.96 cm) ch MDM: 09:15 Patient medically screened. cp 09:20 Differential diagnosis: otitis media, otitis externa, acute otalgia, cerumen impaction, cp acute sinusitis. 09:30 Data reviewed: vital signs, nurses notes, and as a result, I will discharge patient. cp 09:30 Counseling: I had a detailed discussion with the patient and/or guardian regarding: the cp historical points, exam findings, and any diagnostic results supporting the discharge/admit diagnosis, to return to the emergency department if symptoms worsen or persist or if there are any questions or concerns that arise at home. Administered Medications: No medications were administered Disposition: 10:54 Co-signature as Attending Physician, Иван Ewing MD. rn Disposition: 03/05/18 09:31 Discharged to Home. Impression: Otitis media, unspecified, left ear. - Condition is Stable. - Discharge Instructions: Otitis Media, Adult. - Prescriptions for Flonase Allergy Relief 50 mcg/actuation Nasal spray,suspension - inhale 1 spray by INTRANASAL route once daily for 10 days; 1 unit. Augmentin 875- 125 mg Oral Tablet - take 1 tablet by ORAL route every 12 hours for 10 days; 20 tablet. - Medication Reconciliation Form, Thank You Letter, Antibiotic Education, Prescription Opioid Use form. - Follow up: Private Physician; When: 2 - 3 days; Reason: symptoms continue. - Problem is new. - Symptoms are unchanged. Signatures: An Boyce, RN RN Иван Ewing MD MD rn Page, Corey, PA PA cp Bisi Alvarez RN RN Corrections: (The following items were deleted from the chart) 09:37 09:31 03/05/2018 09:31 Discharged to Home. Impression: Otitis media, unspecified, left hb ear. Condition is Stable. Forms are Medication Reconciliation Form, Thank You Letter, Antibiotic Education, Prescription Opioid Use. Follow up: Private Physician; When: 2 - 3 days; Reason: symptoms continue. Problem is new. Symptoms are unchanged. cp
== END 2018-03-05 09:37 | disposition home or self-care (01) ==
LOC: ER 08:55
DX: H66.92 Otitis media, unspecified, left ear (principal); F17.210 Nicotine dependence, cigarettes, uncomplicated
CPT/HCPCS: 99283

== ENCOUNTER 2019-03-21 08:45 | Emergency (ER) | payer SELFPAY ==
[2019-03-21] MEDS ORDERED: dexAMETHasone 10 MG/ML VIAL ONE (09:10)
--- NOTE | 2019-03-21 09:51 | EDPHYS ---
Physician Documentation [facility] Name: Pablito Randolph Age: 23 yrs Sex: Male : 1995 Arrival Date: 03/21/2019 Time: 08:48 Bed 19 Private MD: ED Physician Иван Ewing HPI: 03/21 09:53 This 23 yrs old Male presents to ER via Ambulatory with complaints of Sore jr8 Throat. 09:53 The patient presents with sore throat. The patient describes throat pain as burning, jr8 raw. Onset: The symptoms/episode began/occurred acutely, 3 day(s) ago. Severity of symptoms: At their worst the symptoms were moderate, in the emergency department the symptoms are unchanged. Modifying factors: The symptoms are alleviated by nothing, the symptoms are aggravated by swallowing. Associated signs and symptoms: The patient has no apparent associated signs or symptoms. The patient has experienced similar episodes in the past, a few times. The patient has not recently seen a physician. Historical: - Allergies: 08:59 No Known Allergies; hb - Home Meds: 08:59 None [Active]; hb - PMHx: 08:59 ADD/ADHD; hb - PSHx: 08:59 None; hb - Immunization history:: Adult Immunizations up to date. - Social history:: Smoking status: Patient/guardian denies using tobacco. - Ebola Screening: : No symptoms or risks identified at this time. ROS: 09:53 Eyes: Negative for injury, pain, redness, and discharge, Neck: Negative for injury, jr8 pain, and swelling, Cardiovascular: Negative for chest pain, palpitations, and edema, Respiratory: Negative for shortness of breath, cough, wheezing, and pleuritic chest pain, Abdomen/GI: Negative for abdominal pain, nausea, vomiting, diarrhea, and constipation, Back: Negative for injury and pain, MS/Extremity: Negative for injury and deformity, Skin: Negative for injury, rash, and discoloration, Neuro: Negative for headache, weakness, numbness, tingling, and seizure. 09:53 ENT: Positive for sinus congestion, sore throat. Exam: 09:53 Eyes: Pupils equal round and reactive to light, extra-ocular motions intact. Lids and jr8 lashes normal. Conjunctiva and sclera are non-icteric and not injected. Cornea within normal limits. Periorbital areas with no swelling, redness, or edema. Neck: Trachea midline, no thyromegaly or masses palpated, and no cervical lymphadenopathy. Supple, full range of motion without nuchal rigidity, or vertebral point tenderness. No Meningismus. Cardiovascular: Regular rate and rhythm with a normal S1 and S2. No gallops, murmurs, or rubs. Normal PMI, no JVD. No pulse deficits. Respiratory: Lungs have equal breath sounds bilaterally, clear to auscultation and percussion. No rales, rhonchi or wheezes noted. No increased work of breathing, no retractions or nasal flaring. Abdomen/GI: Soft, non-tender, with normal bowel sounds. No distension or tympany. No guarding or rebound. No evidence of tenderness throughout. Back: No spinal tenderness. No costovertebral tenderness. Full range of motion. Skin: Warm, dry with normal turgor. Normal color with no rashes, no lesions, and no evidence of cellulitis. MS/ Extremity: Pulses equal, no cyanosis. Neurovascular intact. Full, normal range of motion. Neuro: Awake and alert, GCS 15, oriented to person, place, time, and situation. Cranial nerves II-XII grossly intact. Motor strength 5/5 in all extremities. Sensory grossly intact. Cerebellar exam normal. Normal gait. 09:53 ENT: Exam is negative for earache, ear discharge, TM abnormalities, nasal discharge, Mouth: Lips: moist, Oral mucosa: pink and intact, moist, Gums: pink, Tongue: is moist, Posterior pharynx: Airway: patent, Tonsils: bilaterally enlarged, with erythema, with exudate, no ulcerations, Uvula: midline, edematous, erythema, swelling, is not appreciated, erythema, that is mild, exudate, is not appreciated. Vital Signs: 08:59 BP 141 / 81; Pulse 67; Resp 16; Temp 98.4; Pulse Ox 100% ; Weight 108.86 kg; Height 6 hb ft. 2 in. (187.96 cm); Pain 8/10; 10:00 BP 116 / 77; Pulse 54; Resp 17; Temp 98.0(O); Pulse Ox 98% on R/A; mh5 08:59 Body Mass Index 30.81 (108.86 kg, 187.96 cm) hb MDM: 08:56 Patient medically screened. jr8 09:49 Data reviewed: vital signs, nurses notes, lab test result(s), and as a result, I will jr8 discharge patient. Data interpreted: Pulse oximetry: on room air is 100 %. Interpretation: normal. Counseling: I had a detailed discussion with the patient and/or guardian regarding: the historical points, exam findings, and any diagnostic results supporting the discharge/admit diagnosis, lab results, radiology results, the need for outpatient follow up, a family practitioner, to return to the emergency department if symptoms worsen or persist or if there are any questions or concerns that arise at home. 03/21 09:08 Order name: Strep; Complete Time: 09:49 jr8 03/21 09:35 Order name: Throat Culture EDMS Administered Medications: 09:14 Drug: Decadron 10 mg Route: IM; Site: left deltoid; bp 10:12 Follow up: Response: Marked relief of symptoms bp Disposition: 10:24 Co-signature as Attending Physician, Иван Ewing MD. rn Disposition: 03/21/19 09:50 Discharged to Home. Impression: Acute pharyngitis, Uvulitis. - Condition is Stable. - Discharge Instructions: Pharyngitis, Uvulitis. - Prescriptions for Amoxicillin 875 mg Oral Tablet - take 1 tablet by ORAL route every 12 hours for 10 days; 20 tablet. - Medication Reconciliation Form, Thank You Letter, Antibiotic Education, Prescription Opioid Use, Work release form form. - Follow up: Private Physician; When: 5 - 6 days; Reason: Recheck today's complaints, Continuance of care, Re-evaluation by your physician. - Problem is new. - Symptoms have improved. Signatures: Dispatcher [employer] EDMS Иван Ewing MD MD rn Roszak, Josh, PA PA jr8 Bisi Alvarez RN RN hb Peltier, Brian, RN RN bp Corrections: (The following items were deleted from the chart) 10:14 09:50 03/21/2019 09:50 Discharged to Home. Impression: Acute pharyngitis; Uvulitis. bp Condition is Stable. Forms are Medication Reconciliation Form, Thank You Letter, Antibiotic Education, Prescription Opioid Use. Follow up: Private Physician; When: 5 - 6 days; Reason: Recheck today's complaints, Continuance of care, Re-evaluation by your physician. Problem is new. Symptoms have improved. jr8
--- NOTE | 2019-03-21 09:51 | ER ---
Nurse's Notes [facility] Name: Pablito Randolph Age: 23 yrs Sex: Male : 1995 Arrival Date: 03/21/2019 Time: 08:48 Bed 19 Private MD: Diagnosis: Acute pharyngitis;Uvulitis Presentation: 03/21 08:58 Presenting complaint: Sore throat x 3 days. Transition of care: patient was not hb received from another setting of care. Onset of symptoms was March 18, 2019. Risk Assessment: Do you want to hurt yourself or someone else? Patient reports no desire to harm self or others. Care prior to arrival: None. 08:58 Method Of Arrival: Ambulatory hb 08:58 Acuity: CHUY 4 hb 10:13 Initial Sepsis Screen: Does the patient meet any 2 criteria? No. Patient's initial bp sepsis screen is negative. Does the patient have a suspected source of infection? No. Patient's initial sepsis screen is negative. Triage Assessment: 08:58 General: Appears in no apparent distress. comfortable, Behavior is calm, cooperative, bp appropriate for age. Pain: Complains of pain in THROAT. EENT: Reports pain when swallowing. Neuro: No deficits noted. Cardiovascular: No deficits noted. Respiratory: Airway is patent Respiratory effort is even, unlabored. GI: No signs and/or symptoms were reported involving the gastrointestinal system. : No signs and/or symptoms were reported regarding the genitourinary system. Derm: No deficits noted. Musculoskeletal: No deficits noted. Historical: - Allergies: 08:59 No Known Allergies; hb - Home Meds: 08:59 None [Active]; hb - PMHx: 08:59 ADD/ADHD; hb - PSHx: 08:59 None; hb - Immunization history:: Adult Immunizations up to date. - Social history:: Smoking status: Patient/guardian denies using tobacco. - Ebola Screening: : No symptoms or risks identified at this time. Screenin:59 Abuse screen: Denies threats or abuse. Denies injuries from another. Nutritional bp screening: No deficits noted. Tuberculosis screening: No symptoms or risk factors identified. Fall Risk None identified. Assessment: 08:59 General: SEE TRIAGE NOTE. Respiratory: Airway is patent Breath sounds are clear bp bilaterally. 09:00 EENT: Throat is reddened. bp 10:12 Reassessment: PT D/C HOME AMBULATORY, DX WITH ACUTE PHARYNGITIS. Respiratory: Airway is bp patent Respiratory effort is even, unlabored, Respiratory pattern is regular, symmetrical. Vital Signs: 08:59 BP 141 / 81; Pulse 67; Resp 16; Temp 98.4; Pulse Ox 100% ; Weight 108.86 kg; Height 6 hb ft. 2 in. (187.96 cm); Pain 8/10; 10:00 BP 116 / 77; Pulse 54; Resp 17; Temp 98.0(O); Pulse Ox 98% on R/A; mh5 08:59 Body Mass Index 30.81 (108.86 kg, 187.96 cm) hb ED Course: 08:48 Patient arrived in ED. as 08:54 Wilfredo Culver, RN is Primary Nurse. bp 08:56 Spencer Baca PA is PHCP. jr8 08:56 Иван Ewing MD is Attending Physician. 8 08:59 Triage completed. hb 08:59 Patient has correct armband on for positive identification. Bed in low position. Call bp light in reach. Side rails up X2. 10:13 Arm band placed on. bp 10:13 No provider procedures requiring assistance completed. Patient did not have IV access bp during this emergency room visit. Administered Medications: 09:14 Drug: Decadron 10 mg Route: IM; Site: left deltoid; bp 10:12 Follow up: Response: Marked relief of symptoms bp Outcome: 09:50 Discharge ordered by . jr8 10:13 Discharged to home ambulatory. bp 10:13 Condition: stable 10:13 Discharge instructions given to patient, Instructed on discharge instructions, follow up and referral plans. medication usage, Demonstrated understanding of instructions, follow-up care, medications, Prescriptions given X 1. 10:14 Patient left the ED. bp Signatures: Bernie Alva Josh, PA PA jr8 Bisi Alvarez RN RN Olena Alva [facility] Wilfredo Culver, LEILA RN bp
[2019-03-21 10:21] VITALS: BP 116/77; TEMP 98; O2SAT 98
== END 2019-03-21 10:14 | disposition home or self-care (01) ==
LOC: ER 08:45
DX: J02.9 Acute pharyngitis, unspecified (principal); K12.2 Cellulitis and abscess of mouth
CPT/HCPCS: 87070; 87081; 96372; 99283; J1100

== ENCOUNTER 2019-08-05 10:20 | Emergency (ER) | payer SELFPAY ==
[2019-08-05] MEDS ORDERED: ONDANSETRON 4 MG (ODT) TAB ONE (11:47)
--- NOTE | 2019-08-05 12:37 | ER ---
Nurse's Notes [facility] Name: Pablito Randolph Age: 23 yrs Sex: Male : 1995 Arrival Date: 08/05/2019 Time: 10:22 Bed 12 Private MD: Diagnosis: Nausea with vomiting, unspecified;Diarrhea, unspecified Presentation: 08/04 11:15 Chief complaint: Patient states: Fever, N/V/D, body aches and sore throat that began ss last night. Coronavirus screen: The patient has NOT traveled to a country currently being monitored by the [facility] within the last 14 days. Proceed with normal triage procedures. Ebola Screen: Patient denies exposure to infectious person. Patient denies travel to an Ebola-affected area in the 21 days before illness onset. Initial Sepsis Screen: Does the patient meet any 2 criteria? No. Patient's initial sepsis screen is negative. Does the patient have a suspected source of infection? No. Patient's initial sepsis screen is negative. Risk Assessment: Do you want to hurt yourself or someone else? Patient reports no desire to harm self or others. 11:15 Method Of Arrival: Ambulatory ss 11:15 Acuity: CHUY 4 ss 13:05 Onset of symptoms was August 05, 2019. ca1 Historical: - Allergies: 11:17 No Known Allergies; ss - Home Meds: 11:17 None [Active]; ss - PMHx: 11:17 ADD/ADHD; ss - PSHx: 11:17 None; ss - Immunization history:: Adult Immunizations up to date. - Social history:: Smoking status: Patient denies any tobacco usage or history of. Screenin:18 Abuse screen: Denies threats or abuse. Denies injuries from another. Nutritional ss screening: No deficits noted. Tuberculosis screening: Never had TB. Fall Risk None identified. Assessment: 11:18 General: Appears in no apparent distress. comfortable, Behavior is calm, cooperative, ss Reports fever for 12-24 hours, feeling ill for 12-24 hours, fatigue for 12-24 hours. Pain: Complains of pain in general body aches. Neuro: Level of Consciousness is awake, alert, obeys commands, Oriented to person, place, time, situation. Cardiovascular: Capillary refill < 3 seconds is brisk in bilateral fingers. Respiratory: Airway is patent Respiratory effort is even, unlabored, Respiratory pattern is regular, symmetrical, Breath sounds are clear bilaterally. GI: Abdomen is non-distended, Reports diarrhea, nausea, vomiting. : No signs and/or symptoms were reported regarding the genitourinary system. EENT: Oral mucosa is moist. Throat is reddened. Derm: Skin is pink, warm \T\ dry. normal. Musculoskeletal: Circulation, motion, and sensation intact. Range of motion: intact in all extremities. 13:05 Reassessment: Patient appears in no apparent distress at this time. Patient is alert, ca1 oriented x 3, equal unlabored respirations, skin warm/dry/pink. Vital Signs: 11:15 BP 109 / 81; Pulse 64; Resp 16; Temp 98.3(TE); Pulse Ox 97% on R/A; Weight 108.86 kg; ss Height 6 ft. 4 in. (193.04 cm); 13:05 BP 116 / 76; Pulse 72; Resp 17 S; Temp 98(TE); Pulse Ox 98% on R/A; ca1 11:15 Body Mass Index 29.21 (108.86 kg, 193.04 cm) ED Course: 10:22 Patient arrived in ED. rg4 11:01 Toshia Haeys FNP-C is [facility]. kb 11:01 Иван Ewing MD is Attending Physician. kb 11:17 Triage completed. ss 11:17 Arm band placed on right wrist. ss 11:18 Patient has correct armband on for positive identification. Bed in low position. Call ss light in reach. 11:51 Krista Lagos RN is Primary Nurse. 13:05 No provider procedures requiring assistance completed. Patient did not have IV access ca1 during this emergency room visit. Administered Medications: 11:51 Drug: Zofran (Ondansetron) 4 mg Route: PO; Outcome: 12:36 Discharge ordered by . kb 13:05 Discharged to home ambulatory. ca1 13:05 Condition: stable 13:05 Discharge instructions given to patient, Instructed on discharge instructions, follow up and referral plans. medication usage, Demonstrated understanding of instructions, follow-up care, medications, Prescriptions given X 1. 13:06 Patient left the ED. ca1 Signatures: Toshia Hayes FNP-C MACHINE FEEDER [employer] STOCK-Krista Rodriguez RN RN Lesli Martin rg4 Acob, Arely, RN RN ca1
--- NOTE | 2019-08-05 12:38 | EDPHYS ---
Physician Documentation [facility] Name: Pablito Randolph Age: 23 yrs Sex: Male : 1995 Arrival Date: 08/05/2019 Time: 10:22 Bed 12 Private MD: ED Physician Иван Ewing HPI: 08/04 12:48 This 23 yrs old Male presents to ER via Ambulatory with complaints of Fever, kb Vomiting/Diarrhea, Body Aches. 12:48 The patient presents to the emergency department with nausea, vomiting, diarrhea. kb Onset: The symptoms/episode began/occurred yesterday. Possible causes: unknown. The symptoms are aggravated by nothing. The symptoms are alleviated by nothing. Associated signs and symptoms: Pertinent positives: diarrhea, fever, nausea, vomiting, Pertinent negatives: abdominal pain, anorexia, belching, constipation, dysuria, flatulence, GI bleeding, hematuria. Severity of symptoms: At their worst the symptoms were moderate in the emergency department the symptoms have improved. The patient has not experienced similar symptoms in the past. The patient has not recently seen a physician. Pt reports fever, sore throat and n/v/d since yesterday. 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 Historical: - Allergies: 11:17 No Known Allergies; ss - Home Meds: 11:17 None [Active]; ss - PMHx: 11:17 ADD/ADHD; ss - PSHx: 11:17 None; ss - Immunization history:: Adult Immunizations up to date. - Social history:: Smoking status: Patient denies any tobacco usage or history of. ROS: 12:48 Neck: Negative for injury, pain, and swelling, Cardiovascular: Negative for chest pain, kb palpitations, and edema, Respiratory: Negative for shortness of breath, cough, wheezing, and pleuritic chest pain, Back: Negative for injury and pain, MS/Extremity: Negative for injury and deformity, Skin: Negative for injury, rash, and discoloration, Neuro: Negative for headache, weakness, numbness, tingling, and seizure. 12:48 Constitutional: Positive for fever. 12:48 ENT: Positive for sore throat. 12:48 Abdomen/GI: Positive for nausea, vomiting, and diarrhea, Negative for abdominal pain. Exam: 12:48 Constitutional: This is a well developed, well nourished patient who is awake, alert, kb and in no acute distress. Head/Face: Normocephalic, atraumatic. ENT: Nares patent. No nasal discharge, no septal abnormalities noted. Tympanic membranes are normal and external auditory canals are clear. Oropharynx with no redness, swelling, or masses, exudates, or evidence of obstruction, uvula midline. Mucous membranes moist. Neck: Trachea midline, no thyromegaly or masses palpated, and no cervical lymphadenopathy. Supple, full range of motion without nuchal rigidity, or vertebral point tenderness. No Meningismus. Chest/axilla: Normal chest wall appearance and motion. Nontender with no deformity. No lesions are appreciated. Cardiovascular: Regular rate and rhythm with a normal S1 and S2. No gallops, murmurs, or rubs. Normal PMI, no JVD. No pulse deficits. Respiratory: Lungs have equal breath sounds bilaterally, clear to auscultation and percussion. No rales, rhonchi or wheezes noted. No increased work of breathing, no retractions or nasal flaring. Abdomen/GI: Soft, non-tender, with normal bowel sounds. No distension or tympany. No guarding or rebound. No evidence of tenderness throughout. Skin: Warm, dry with normal turgor. Normal color with no rashes, no lesions, and no evidence of cellulitis. MS/ Extremity: Pulses equal, no cyanosis. Neurovascular intact. Full, normal range of motion. Neuro: Awake and alert, GCS 15, oriented to person, place, time, and situation. Cranial nerves II-XII grossly intact. Motor strength 5/5 in all extremities. Sensory grossly intact. Cerebellar exam normal. Normal gait. Vital Signs: 11:15 BP 109 / 81; Pulse 64; Resp 16; Temp 98.3(TE); Pulse Ox 97% on R/A; Weight 108.86 kg; ss Height 6 ft. 4 in. (193.04 cm); 13:05 BP 116 / 76; Pulse 72; Resp 17 S; Temp 98(TE); Pulse Ox 98% on R/A; ca1 11:15 Body Mass Index 29.21 (108.86 kg, 193.04 cm) MDM: 11:04 Patient medically screened. kb 12:48 Data reviewed: vital signs, nurses notes. Data interpreted: Pulse oximetry: on room air kb is 97 %. Interpretation: normal. Counseling: I had a detailed discussion with the patient and/or guardian regarding: the historical points, exam findings, and any diagnostic results supporting the discharge/admit diagnosis, lab results, the need for outpatient follow up, a family practitioner, to return to the emergency department if symptoms worsen or persist or if there are any questions or concerns that arise at home. 08/04 11:18 Order name: Strep; Complete Time: 12:10 kb 08/04 11:18 Order name: Flu; Complete Time: 12:09 kb 08/04 12:12 Order name: Throat Culture EDWA Administered Medications: 11:51 Drug: Zofran (Ondansetron) 4 mg Route: PO; Disposition: 14:28 Co-signature as Attending Physician, Иван Ewing MD. rn Disposition: 08/05/19 12:36 Discharged to Home. Impression: Nausea with vomiting, unspecified, Diarrhea, unspecified. - Condition is Stable. - Discharge Instructions: Food Choices to Help Relieve Diarrhea, Adult, Viral Gastroenteritis, Adult, [id number]. - Prescriptions for Zofran 4 mg Oral Tablet - take 1 tablet by ORAL route every 6 hours As needed; 20 tablet. - Work release form, Medication Reconciliation Form, Thank You Letter, Antibiotic Education, Prescription Opioid Use form. - Follow up: Emergency Department; When: As needed; Reason: Worsening of condition. Follow up: Private Physician; When: 2 - 3 days; Reason: Recheck today's complaints, Continuance of care, Re-evaluation by your physician. Signatures: Dispatcher [employer] EDWA Toshia Hayes, LABEL REWINDER-C LABEL REWINDER-Иван Purcell MD MD rn Smirch, Shelby, RN RN ss rAely Yusuf RN RN ca1 Corrections: (The following items were deleted from the chart) 12:37 12:36 08/05/2019 12:36 Discharged to Home. Impression: Nausea with vomiting, kb unspecified. Condition is Stable. Forms are Medication Reconciliation Form, Thank You Letter, Antibiotic Education, Prescription Opioid Use. Follow up: Emergency Department; When: As needed; Reason: Worsening of condition. Follow up: Private Physician; When: 2 - 3 days; Reason: Recheck today's complaints, Continuance of care, Re-evaluation by your physician. kb 13:06 12:37 08/05/2019 12:36 Discharged to Home. Impression: Nausea with vomiting, ca1 unspecified; Diarrhea, unspecified. Condition is Stable. Forms are Medication Reconciliation Form, Thank You Letter, Antibiotic Education, Prescription Opioid Use. Follow up: Emergency Department; When: As needed; Reason: Worsening of condition. Follow up: Private Physician; When: 2 - 3 days; Reason: Recheck today's complaints, Continuance of care, Re-evaluation by your physician. kb
== END 2019-08-05 13:06 | disposition home or self-care (01) ==
LOC: ER 10:20
DX: R11.2 Nausea with vomiting, unspecified (principal); R19.7 Diarrhea, unspecified
CPT/HCPCS: 87070; 87081; 87804; 99283

== ENCOUNTER 2019-11-20 10:25 | Emergency (ER) | payer SELFPAY ==
--- NOTE | 2019-11-20 12:40 | EDPHYS ---
Physician Documentation [facility] Name: Pablito Randolph Age: 23 yrs Sex: Male : 1995 Arrival Date: 11/20/2019 Time: 10:26 Bed 6 Private MD: ED Physician Nam Gould HPI: 11/19 12:28 This 23 yrs old Male presents to ER via Ambulatory with complaints of Medical jmm Clearance. 12:28 The patient presents to the emergency department with nausea, vomiting. Onset: The jmm symptoms/episode began/occurred acutely, 1 day(s) ago. Possible causes: bad food exposure. The symptoms are aggravated by nothing. The symptoms are alleviated by nothing. Associated signs and symptoms: The patient has no apparent associated signs or symptoms. The patient has not experienced similar symptoms in the past. Patient states yesterday developing nausea with 3 episodes of vomiting he believes was due to either a vital illness or food. Patient states symptoms have resolved today. Denies abdominal pain, can tolerate PO. . Historical: - Allergies: 11:09 No Known Allergies; jl7 - Home Meds: 11:09 None [Active]; jl7 - PMHx: 11:09 ADD/ADHD; jl7 - PSHx: 11:09 Appendectomy; jl7 - Immunization history:: Adult Immunizations up to date. - Social history:: Smoking status: Patient denies any tobacco usage or history of. ROS: 12:28 Constitutional: Negative for fever, chills, and weight loss, Cardiovascular: Negative jmm for chest pain, palpitations, and edema, Respiratory: Negative for shortness of breath, cough, wheezing, and pleuritic chest pain, Abdomen/GI: Negative for abdominal pain, nausea, vomiting, diarrhea, and constipation, Neuro: Negative for headache, weakness, numbness, tingling, and seizure. 12:28 All other systems are negative. Exam: 12:28 Constitutional: This is a well developed, well nourished patient who is awake, alert, jmm and in no acute distress. Head/Face: atraumatic. Eyes: EOMI, no conjunctival erythema appreciated ENT: Moist Mucus Membranes Neck: Trachea midline, Supple Chest/axilla: Normal chest wall appearance and motion. Cardiovascular: Regular rate and rhythm. No edema appreciated Respiratory: Normal respirations, no respiratory distress appreciated 12:28 Back: Normal ROM Skin: General appearance color normal MS/ Extremity: Moves all extremities, no obvious deformities appreciated, no edema noted to the lower extremities Neuro: Awake and alert, normal gait Psych: Behavior is normal, Mood is normal, Patient is cooperative and pleasant 12:28 Abdomen/GI: Inspection: abdomen appears normal, Bowel sounds: normal, Palpation: abdomen is soft and non-tender, in all quadrants. Vital Signs: 11:07 BP 123 / 82; Pulse 58; Resp 15; Temp 98.4; Pulse Ox 97% ; Weight 113.4 kg; Height 6 ft. jl7 2 in. (187.96 cm); Pain 0/10; 11:07 Body Mass Index 32.10 (113.40 kg, 187.96 cm) jl7 MDM: 12:24 Patient medically screened. [facility] 12:30 Data reviewed: vital signs, nurses notes. Counseling: I had a detailed discussion with matilde the patient and/or guardian regarding: the historical points, exam findings, and any diagnostic results supporting the discharge/admit diagnosis, the need for outpatient follow up, to return to the emergency department if symptoms worsen or persist or if there are any questions or concerns that arise at home. ED course: Patient is alert and non toxic in appearance in the ED. Abd is soft and non tender to palpation. Patient can tolerate PO. I do not suspect an acute intraabdominal process. patient is otherwise given strict return precautions. Patient understood and agrees with the plan of care. . Administered Medications: No medications were administered Disposition: 12:56 Co-signature as Attending Physician, Nam Gould MD I agree with the assessment and kdr plan of care. Disposition: 11/20/19 12:40 Discharged to Home. Impression: Person with feared health complaint in whom no diagnosis is made. - Condition is Stable. - Discharge Instructions: Form - Return To Work. - Work release form, Medication Reconciliation Form, Thank You Letter, Antibiotic Education, Prescription Opioid Use form. - Follow up: Private Physician; When: 2 - 3 days; Reason: Recheck today's complaints, Continuance of care, Re-evaluation by your physician. Signatures: Nam Gould MD MD kdr Mickail, Joel, PA PA [facility] Leticia Zayas, LEILA RN Rafita Stephens RN RN jl7 Corrections: (The following items were deleted from the chart) 12:46 12:40 11/20/2019 12:40 Discharged to Home. Impression: Person with feared health rb1 complaint in whom no diagnosis is made. Condition is Stable. Forms are Medication Reconciliation Form, Thank You Letter, Antibiotic Education, Prescription Opioid Use. Follow up: Private Physician; When: 2 - 3 days; Reason: Recheck today's complaints, Continuance of care, Re-evaluation by your physician. matilde
--- NOTE | 2019-11-20 12:40 | ER ---
Nurse's Notes [facility] Name: Pablito Randolph Age: 23 yrs Sex: Male : 1995 Arrival Date: 11/20/2019 Time: 10:26 Bed 6 Private MD: Diagnosis: Person with feared health complaint in whom no diagnosis is made Presentation: 11/19 11:07 Chief complaint: Patient states: Stayed home from work yesterday because I vomited jl7 about 4 times, no other symptoms, no fever, no diarrhea "I'm pretty sure I ate something bad." Tried to go to work and they want a doctors note. Coronavirus screen: Proceed with normal triage. Patient denies a cough. Patient denies shortness of breath or difficulty breathing. Patient denies measured and/or subjective temperature greater than 100.4F prior to today's visit. Patient denies travel on a cruise ship or to a country the [facility] currently lists as an affected area. Patient denies contact with known and/or suspected case of COVID-19. Ebola Screen: No symptoms or risks identified at this time. Initial Sepsis Screen: Does the patient meet any 2 criteria? No. Patient's initial sepsis screen is negative. Does the patient have a suspected source of infection? No. Patient's initial sepsis screen is negative. Risk Assessment: Do you want to hurt yourself or someone else? Patient reports no desire to harm self or others. Onset of symptoms was November 19, 2019. Care prior to arrival: None. 11:07 Method Of Arrival: Ambulatory jl7 11:07 Acuity: CHUY 5 jl7 Triage Assessment: 11:09 General: Appears in no apparent distress. comfortable, Behavior is calm, cooperative, jl7 appropriate for age. Pain: Denies pain. Neuro: Level of Consciousness is awake, alert, obeys commands, Oriented to person, place, time, situation. Cardiovascular: Patient's skin is warm and dry. Respiratory: Airway is patent Respiratory effort is even, unlabored, Respiratory pattern is regular, symmetrical. Derm: Skin is pink, warm \\T\\ dry. Historical: - Allergies: 11:09 No Known Allergies; jl7 - Home Meds: 11: None [Active]; jl7 - PMHx: 11:09 ADD/ADHD; jl7 - PSHx: 11:09 Appendectomy; jl7 - Immunization history:: Adult Immunizations up to date. - Social history:: Smoking status: Patient denies any tobacco usage or history of. Screenin:45 Abuse screen: Denies threats or abuse. Nutritional screening: No deficits noted. rb1 Tuberculosis screening: No symptoms or risk factors identified. Fall Risk None identified. Vital Signs: 11:07 BP 123 / 82; Pulse 58; Resp 15; Temp 98.4; Pulse Ox 97% ; Weight 113.4 kg; Height 6 ft. jl7 2 in. (187.96 cm); Pain 0/10; 11:07 Body Mass Index 32.10 (113.40 kg, 187.96 cm) jl7 ED Course: 10:26 Patient arrived in ED. ag5 11:09 Triage completed. jl7 11:09 Arm band placed on right wrist. 7 12:11 Wilfredo Culver, RN is Primary Nurse. bp 12:13 Jose Palmer PA is PHCP. [facility] 12:13 Nam Gould MD is Attending Physician. [facility] 12:45 Patient has correct armband on for positive identification. Bed in low position. Call rb1 light in reach. Side rails up X 1. Pulse ox on. NIBP on. 12:45 No provider procedures requiring assistance completed. Patient did not have IV access rb1 during this emergency room visit. Administered Medications: No medications were administered Outcome: 12:40 Discharge ordered by . [facility] 12:45 Discharged to home ambulatory. rb1 12:45 Condition: stable 12:45 Discharge instructions given to patient, Instructed on discharge instructions, follow up and referral plans. Demonstrated understanding of instructions, follow-up care, Prescriptions given X none 12:46 Patient left the ED. rb1 Signatures: Jose Palmer PA PA [facility] Leticia Zayas, RN RN rb1 Rafita Joe RN RN jl7 Wilfredo Culver, RN RN bp Jose Manuel Monroe ag5
[2019-11-20 12:58] VITALS: BP 123/82; TEMP 98.4; O2SAT 97
--- OUTSIDE RECORDS SUMMARY | 2019-11-20 13:20 | XMS REPORT | Summary of Care ---
:1995 Author Organization [facility] Address [address] [place] [address] Care Team Providers Name Role Phone MD Vijay Primary Care Provider Reason for Visit Reason Comments Assessment Encounter Details Date Type Department Care Team Description 08/26/2019 Telephone [facility] Family Medicine Pob1, Acute C are Clinic Assessment - [address] [phone] Allergies No Known Allergiesdocumented as of this encounter (statuses as of 08/26/2019) Medications No known medicationsdocumented as of this encounter (statuses as of 08/26/2019) Active Problems Problem Noted Date Upper respiratory tract infection, unspecified type Tobacco dependence 08/12/2019 documented as of this encounter (statuses as of 08/26/2019) Social History Tobacco Use Types Packs/Day Years Used Date Current Every Day Smoker Cigarettes 0.5 6 Smokeless Tobacco: Never Used Alcohol Use Drinks/Week oz/Week Comments Yes once a month Sex Assigned at Date Recorded Not on file Job Start Date Occupation Industry Not on file Not on file Not on file Travel History Travel Start Travel End No recent travel history available. documented as of this encounter Last Filed Vital Signs Not on filedocumented in this encounter Plan of Treatment Date Type Specialty Care Team Description 08/26/2019 Urgent Care Family Medicine Pob1, Acute Care Clinic Health Maintenance Due Date Last Done Comments PNEUMOCOCCAL 0-64 YEARS COMBINED 12/14/2001 SERIES (1 of 1 - PPSV23) MENINGOCOCCAL B VACCINES (1 of 2 - 12/14/2005 Risk Bexsero 2-dose series) DTaP,Tdap,and Td Vaccines (1 - 12/14/2006 Tdap) INFLUENZA VACCINE (#1) 2019 HPV VACCINES Aged Out No longer eligib le based on patient's age to complete this topic documented as of this encounter Results Not on filedocumented in this encounter
--- OUTSIDE RECORDS SUMMARY | 2019-11-20 13:20 | XMS REPORT | Continuity of Care Document ---
:1995 Author Organization [facility] t Address [address] [place] [address] Care Team Providers Name Role Phone Pob1, [facility] Attending Clinician Unavailable Vijay RYAN Attending Clinician Yung Davenport Attending Clinician Doctor Unassigned, Name Attending Clinician Unavailable Problems This patient has no known problems. Allergies, Adverse Reactions, Alerts This patient has no known allergies or adverse reactions. Medications This patient has no known medications. Procedures This patient has no known procedures. Encounters Start End Encounter Admission Attending Care Care Encounter Source Date/Time Date/Time Type Type Clinicians Facility Department ID 2019-08-26 2019-08-26 Urgent Pob1, Acute [facility] 1..840.114 [id number] 13:54:03 14:14:03 [place] [id number] [place] [id number] Professio [phone] [address] 2019-08-26 2019-08-26 Telephone Pob1, Acute [facility] [id number] 00:00:00 00:00:00 [place] [id number] [place] [id number] Professio [phone] [address] 2019-08-21 2019-08-[address] [facility] [id number] 00:00:00 00:00:00 Max Trotter [id number] [place] [id number] Professio [phone] [address] 2019-08-15 2019-08-15 Letter Elena, [facility] [id number] 00:00:00 00:00:00 (Out) Sophie Yung Trotter [id number] [place] [id number] Professio [phone] [place] [address] Building 2019-08-13 2019-08-13 Office Pob1, Acute [facility] [id number] 10:22:52 11:31:16 Visit Care [facility] [id number] [place] [id number] Professio [phone] [place] [address] [address] 2019-08-13 2019-08-13 Orders Doctor SANDRA [id number] 00:00:00 00:00:00 Only Unassigned, AMRÍA [id number] [place] [facility] [id number] [phone] [id number] Results This patient has no known results.
--- OUTSIDE RECORDS SUMMARY | 2019-11-20 13:21 | XMS REPORT | Summary of Care ---
:1995 Author Organization [facility] Address [address] [place] [address] Care Team Providers Name Role Phone MD Vijay Primary Care Provider Reason for Visit Reason Comments Fever Cough Other pt was tested 2 weeks ago Sore Throat Encounter Details Date Type Department Care Team Description 08/26/2019 Urgent Care [facility] Family Matheus Bingham FNP [address] [place] [address] Acute sinusitis, recurrence not specifie d, unspecified location (Primary Dx); [facility], Acute Care Clinic Acute pharyngitis, unspecified etiology; [facility] [place] [address] Allergies No Known Allergiesdocumented as of this encounter (statuses as of 08/26/2019) Medications Medication Sig Dispensed Refills Start Date End Date Status azithromycin (ZITHROMAX Take 1 tablet by 6 tablet 0 0 Active Z-ALPHONSE) 250 mg mouth daily. Take tabletIndications: 500 mg day 1, Acute sinusitis, then 250 mg days recurrence not 2 to 5. specified, unspecified location, Chronic cough documented as of this encounter (statuses as [...] of this encounter Last Filed Vital Signs Vital Sign Reading Time Taken Comments Blood Pressure 132/85 08/26/2019 2:03 PM CDT Pulse 103 08/26/2019 2:03 PM CDT Temperature 36.7 C (98.1 F) 08/26/2019 2:03 PM CDT Respiratory Rate 18 08/26/2019 2:03 PM CDT Oxygen Saturation 100% 08/26/2019 2:03 PM CDT Inhaled Oxygen Concentration - - Weight 108.9 kg (240 lb) 08/26/2019 2:03 PM CDT Height 188 cm (6' 2") 08/26/2019 2:03 PM CDT Body Mass Index 30.81 08/26/2019 2:03 PM CDT documented in this encounter Progress Notes Rossy Ross MD - 08/26/2019 1:40 PM CDT HPI Informant(s): self 23 year old male here today with complaints of cough present for 2 week(s) occurring primarily at noparticular time. Symptoms are unchanged. Has found no relief with no meds. He has had cough for 2 weeks- but now in last few days has increased in duration Cough is dry- not productive Last 2 days had more persistent cough He was seen 2 weeks ago and had strep, flu and COVID 19 testing that was negative COVID-19 SCREEN: ? Recent history of travel to a high-risk area: No ? Recent sick contacts before or during admission: Yes ? Contact with a proven COVID-19 case: No ? 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 PAST HISTORY History of asthma: no History of allergies: no History of frequent respiratory infections: no Smokers in Household: Yes- patient smokes Pets in Household: cat and dog Past Surgical History: appendectomy Past Medical History: Diagnosis Date Pinched nerve back Family History Problem Relation Age of Onset No Significant Medical Problems Mother No Significant Medical Problems Father Social History Socioeconomic History Marital status: Spouse name: Not on file Number of children: Not on file Years of education: Not on file Highest education level: Not on file Occupational History Not on file Social Needs Financial resource strain: Not on file Food insecurity: Worry: Not on file Inability: Not on file Transportation needs: Medical: Not on file Non-medical: Not on file Tobacco Use Smoking status: Current Every Day Smoker Packs/day: 0.50 Years: 6.00 Pack years: 3.00 Types: Cigarettes Smokeless tobacco: Never Used Substance and Sexual Activity Alcohol use: Yes Comment: once a month Drug use: Never Sexual activity: Not on file Lifestyle Physical activity: Days per week: Not on file Minutes per session: Not on file Stress: Not on file Relationships Social connections: Talks on phone: Not on file Gets together: Not on file Attends mormonism service: Not on file Active member of club or organization: Not on file Attends meetings of clubs or organizations: Not on file Relationship status: Not on file Intimate partner violence: Fear of current or ex partner: Not on file Emotionally abused: Not on file Physically abused: Not on file Forced sexual activity: Not on file Other Topics Concern Not on file Social History Narrative Lives at home with and 2 kids. PHYSICAL EXAM BP 132/85 (BP Location: Left arm, Patient Position: Sitting, BP CUFF SIZE: Adult Medium) | Pulse 103 | Temp 36.7 C (98.1 F) (Temporal Artery) | Resp 18 | Ht 6' 2" (1.88 m) | Wt 240 lb (108.9 kg) | SpO2 100% | BMI 30.81 kg/m General: alert, active, in no acute distress Head: normocephalic Eyes: Positive red reflex bilaterally, pupils equal, round, reactive to light, conjunctiva clear and conjugate gaze Ears: TM's normal, external auditory canals normal Nose: Erythematous turbinates with yellow discharge Oral Pharynx: moist mucous membranes with erythema, no exudates or petechiae, dentition normal, normal for age Neck: supple and no lymphadenopathy Lungs: clear to auscultation Heart: regular rate and rhythm, no murmur Abdomen: normal bowel sounds, soft, non-distended, no hepatosplenomegaly or masses Neuro: normal without focal findings Back/Spine: back straight, no defects Musculoskeletal: moves all extremities equally Skin: warm, no rashes, no ecchymosis ASSESSMENT Chronic cough Fever Acute Rhino-Sinusitis Acute pharyngitis PLAN Acetominophen or ibuprofen as needed Complete entire course of antibiotic Cool mist vaporizer Frequent handwashing Humidifier use Encourage fluids such as water, juices, ice pops and jello Rest Saline drops to nostrils and suction. Instructed caregiver to call office if child's symptoms worsen or if no improvement Plan of Care, desired health behaviors, goals and medications discussed with patient and or family and education resources and self-management tools provided. Patient/family/guardian voices understanding Barriers to adherence:none. Ability to manage care: good For new medications dispensed, I reviewed potential side effects, drug interactions, instructions for taking the medication and consequences of not taking it with the patient/parent (if pedi). The patient/parent acknowledged understanding of new medication information. . Fern Ribeiro E - 08/26/2019 1:40 PM CDT Pablito Randolph is a 23 year old male Chief Complaint Patient presents with Fever Cough Other pt was tested 2 weeks ago Sore Throat Vitals: 08/26/19 1403 BP: 132/85 BP Location: Left arm Patient Position: Sitting BP CUFF SIZE: Adult Medium Pulse: 103 Resp: 18 Temp: 36.7 C (98.1 F) TempSrc: Temporal Artery SpO2: 100% Weight: 240 lb (108.9 kg) Height: 6' 2" (1.88 m) [id number] - [place], [place] - [address] [employer] [facility] [employer] All Vitals taken, allergies and all medications reviewed, fall risk assessed. Pain level 0/10. FERN PINO 08/26/2019 2:05 PM documented in this encounter Plan of Treatment Health Maintenance Due Date Last Done Comments PNEUMOCOCCAL 0-64 YEARS COMBINED 12/14/2001 SERIES (1 of 1 - PPSV23) MENINGOCOCCAL B VACCINES (1 of 2 - 12/14/2005 Risk Bexsero 2-dose series) DTaP,Tdap,and Td Vaccines (1 - 12/14/2006 Tdap) INFLUENZA VACCINE (#1) 2019 HPV VACCINES Aged Out No longer eligib le based on patient's age to complete this topic documented as of this encounter Procedures Procedure Name Priority Date/Time Associated Diagnosis Comme nts POCT GRP A STREP STAT 08/26/2019 2:28 PM Acute pharyngitis , Results for this (MOLECULAR) CDT unspecified etiology procedu re are in the results section. documented in this encounter Results POCT GRP A STREP (MOLECULAR) (08/26/2019 2:28 PM CDT) Pathologist Sig nature POCT GP A STREP negative Negative - Negative Specimen Swab - THROAT documented in this encounter Visit Diagnoses Diagnosis Acute sinusitis, recurrence not specifie d, unspecified location - Primary Acute pharyngitis, unspecified etiology Chronic cough Cough documented in this encounter
== END 2019-11-20 12:46 | disposition home or self-care (01) ==
LOC: ER 10:25
DX: R11.2 Nausea with vomiting, unspecified (principal); Z71.1 Person with feared health complaint in whom no diagnosis is made
CPT/HCPCS: 99283

== ENCOUNTER 2020-08-22 19:48 | Emergency (ER) | payer SELFPAY ==
--- OUTSIDE RECORDS SUMMARY | 2020-08-22 19:52 | XMS REPORT | Continuity of Care Document ---
:1995 Author Organization [facility] t Address [address] [place] [address] Care Team Providers Name Role Phone Pob1, Care Clinic Attending Clinician Unavailable Vijay RYAN Attending [...] Department ID 2019-08-26 2019-08-26 Urgent Pob1, Acute [facility] [[email or web address]] [id number] 13:54:03 14:14:03 [facility] [id number] [place] [id number] Professio [phone] nal 0[address] One 2019-08-26 2019-08-26 Telephone Pob1, Acute [facility] [[email or web address]] 1.2.840.114 [id number] 00:00:00 00:00:00 [facility] [id number] [place] [id number] Professio [phone] nal 0[address] One 2019-08-21 2019-08-21 Telephone Edgilmar, [facility] [[email or web address]] 1.2.840.114 [id number] 00:00:00 00:00:00 [place] [id number] [place] [id number] Professio [phone] [address] 2019-08-15 2019-08-15 Letter Elena [facility] [[email or web address]] [id number] 00:00:00 00:00:00 (Out) Sophie Barragan [place] [id number] [place] [id number] Professio [phone] [address] 2019-08-13 2019-08-13 Office Pob1, Acute [facility] [[email or web address]] 1.2.840.114 [id number] 10:22:52 11:31:16 Visit Care [facility] [id number] [place] [id number] Professio [phone] [place] [address] [address] 2019-08-13 2019-08-13 Orders Doctor SANDRA 1.2.840.114 [id number] 00:00:00 00:00:00 Only Unassigned, MARÍA [id number] [facility] [phone] [id number] Results This patient has no known results.
--- NOTE | 2020-08-22 21:27 | RAD REPORT ---
EXAM DESCRIPTION: RAD - Chest Single View - 08/22/2020 9:07 pm CLINICAL HISTORY: SOB Chest pain. COMPARISON: Chest Single View dated 02/01/2020; Chest Single View dated 04/07/2017; Chest Single View dated 07/06/2016; CHEST PA AND LAT 2 VIEW dated 08/29/2008No comparisons FINDINGS: Portable technique limits examination quality. The lungs are grossly clear. The heart is normal in size. No displaced fractures. IMPRESSION: No acute intrathoracic process suspected.
[2020-08-22] MEDS ORDERED: KETOROLAC 30 MG/ML INJ ONE (21:35)
--- NOTE | 2020-08-22 22:32 | ER ---
Nurse's Notes [facility] Name: Pablito Randolph Age: 24 yrs Sex: Male : 1995 Arrival Date: 08/22/2020 Time: 19:55 Bed 8 Private MD: Diagnosis: Coronavirus infection, unspecified Presentation: 08/22 20:02 Chief complaint: Patient states: yesterday my body is aching, shortness of breath, rr5 cough, headache my eyes feels like burning and fever started today. Coronavirus screen: cough unrelated to allergies, difficulty breathing, fatigue, fever, headache, shortness of breath, Client presents with at least one sign or symptom that may indicate coronavirus-19. Standard/surgical mask placed on the client. Provider contacted for isolation considerations. Ebola Screen: Patient negative for fever greater than or equal to 101.5 degrees Fahrenheit, and additional compatible Ebola Virus Disease symptoms Patient denies exposure to infectious person. Patient denies travel to an Ebola-affected area in the 21 days before illness onset. Initial Sepsis Screen: Does the patient meet any 2 criteria? HR > 90 bpm. Does the patient have a suspected source of infection? Yes: Productive cough/pneumonia. Risk Assessment: Do you want to hurt yourself or someone else? Patient reports no desire to harm self or others. Onset of symptoms was August 21, 2020. 20:02 Method Of Arrival: Ambulatory rr5 20:02 Acuity: CHUY 3 rr5 Historical: - Allergies: 20:07 No Known Allergies; rr5 - Home Meds: 20:07 None [Active]; rr5 - PMHx: 20:07 ADD/ADHD; rr5 - PSHx: 20:07 Appendectomy; rr5 - Immunization history:: Adult Immunizations up to date. - Social history:: Smoking status: Patient reports the use of cigarette tobacco products, smokes one pack cigarettes per day. Patient uses alcohol, but reports only rare drinking. Patient/guardian denies using street drugs. Screenin:10 Abuse screen: Denies threats or abuse. Nutritional screening: No deficits noted. jb4 Tuberculosis screening: No symptoms or risk factors identified. Fall Risk None identified. Assessment: 20:10 General: Appears in no apparent distress. uncomfortable, Behavior is calm, cooperative, jb4 appropriate for age. Pain: Complains of pain in generalized body aches, soar throat Pain does not radiate. Pain currently is 7 out of 10 on a pain scale. Neuro: Level of Consciousness is awake, alert, obeys commands. Cardiovascular: Patient's skin is warm and dry. Respiratory: Airway is patent Respiratory effort is even, unlabored, Respiratory pattern is regular, symmetrical. GI: No signs and/or symptoms were reported involving the gastrointestinal system. : No signs and/or symptoms were reported regarding the genitourinary system. EENT: Throat is clear is reddened with gag reflex present. Derm: No signs and/or symptoms reported regarding the dermatologic system. Musculoskeletal: No signs and/or symptoms reported regarding the musculoskeletal system. 21:00 Reassessment: Patient appears in no apparent distress at this time. Patient and/or jb4 family updated on plan of care and expected duration. Pain level reassessed. Patient is alert, oriented x 3, equal unlabored respirations, skin warm/dry/pink. 22:00 Reassessment: Patient appears in no apparent distress at this time. Patient and/or jb4 family updated on plan of care and expected duration. Pain level reassessed. Patient is alert, oriented x 3, equal unlabored respirations, skin warm/dry/pink. 22:42 Reassessment: Patient appears in no apparent distress at this time. Patient and/or jb4 family updated on plan of care and expected duration. Pain level reassessed. Patient is alert, oriented x 3, equal unlabored respirations, skin warm/dry/pink. Vital Signs: 20:02 BP 146 / 95; Pulse 92; Resp 19; Temp 100; Pulse Ox 98% ; Weight 109.32 kg; Height 6 ft. rr5 0 in. (182.88 cm); Pain 7/10; 20:30 BP 137 / 83; Pulse 92; Resp 16; Pulse Ox 95% on R/A; jb4 22:00 BP 136 / 81; Pulse 79; Resp 18; Pulse Ox 95% on R/A; jb4 20:02 Body Mass Index 32.69 (109.32 kg, 182.88 cm) rr5 ED Course: 19:55 Patient arrived in ED. am4 20:06 Triage completed. rr5 20:07 Arm band placed on right wrist. rr5 20:10 Patient has correct armband on for positive identification. Bed in low position. Call jb4 light in reach. Side rails up X 1. Pulse ox on. NIBP on. 20:23 Deniz Mckeon MD is Attending Physician. tw4 20:23 Harjit Donovan, RN is Primary Nurse. rr5 21:08 CXR XRAY In Process Unspecified. EDMS 22:42 No provider procedures requiring assistance completed. Patient did not have IV access jb4 during this emergency room visit. Administered Medications: 21:22 Drug: TORadol 60 mg Route: IM; Site: left gluteus; jb4 22:00 Follow up: Response: No adverse reaction; Marked relief of symptoms; Pain is decreased jb4 Outcome: 22:31 Discharge ordered by . tw4 22:42 Discharged to home ambulatory. jb4 22:42 Condition: stable 22:42 Discharge instructions given to patient, Instructed on discharge instructions, follow up and referral plans. medication usage, Demonstrated understanding of instructions, follow-up care, medications, Prescriptions given X 2. 22:43 Patient left the ED. jb4 Signatures: Dispatcher [employer] EDMS Yves Patel, RN RN jb4 Deniz Mckeon MD MD 4 Harjit Donovan, RN RN 5 Mary Alva [facility]
--- NOTE | 2020-08-22 22:32 | EDPHYS ---
Physician Documentation [facility] Name: Pablito Randolph Age: 24 yrs Sex: Male : 1995 Arrival Date: 08/22/2020 Time: 19:55 Bed 8 Private MD: ED Physician Deniz Mckeon HPI: 08/22 21:01 This 24 yrs old Male presents to ER via Ambulatory with complaints of tw4 Shortness Of Breath, Eye Problem, Cough. 21:01 The patient has shortness of breath at rest. Onset: The symptoms/episode began/occurred tw4 today. Duration: The symptoms are continuous, and are unchanged since they started. The patient's shortness of breath has no apparent modifying factors. Associated signs and symptoms: The patient has no apparent associated signs or symptoms. Severity of symptoms: At their worst the symptoms were mild in the emergency department the symptoms are unchanged. The patient has not experienced similar symptoms in the past. Historical: - Allergies: 20:07 No Known Allergies; rr5 - Home Meds: 20:07 None [Active]; rr5 - PMHx: 20:07 ADD/ADHD; rr5 - PSHx: 20:07 Appendectomy; rr5 - Immunization history:: Adult Immunizations up to date. - Social history:: Smoking status: Patient reports the use of cigarette tobacco products, smokes one pack cigarettes per day. Patient uses alcohol, but reports only rare drinking. Patient/guardian denies using street drugs. ROS: 21:01 Constitutional: Negative for fever, chills, and weight loss, Cardiovascular: Negative tw4 for chest pain, palpitations, and edema, Abdomen/GI: Negative for abdominal pain, nausea, vomiting, diarrhea, and constipation, Back: Negative for injury and pain, MS/Extremity: Negative for injury and deformity, Skin: Negative for injury, rash, and discoloration, Neuro: Negative for headache, weakness, numbness, tingling, and seizure. 21:01 Respiratory: Positive for shortness of breath, Negative for cough, dyspnea on exertion, hemoptysis, orthopnea, pleurisy. Exam: 21:01 Constitutional: This is a well developed, well nourished patient who is awake, alert, tw4 and in no acute distress. Head/Face: Normocephalic, atraumatic. Chest/axilla: Normal chest wall appearance and motion. Nontender with no deformity. No lesions are appreciated. Cardiovascular: Regular rate and rhythm with a normal S1 and S2. No gallops, murmurs, or rubs. Normal PMI, no JVD. No pulse deficits. Respiratory: Lungs have equal breath sounds bilaterally, clear to auscultation and percussion. No rales, rhonchi or wheezes noted. No increased work of breathing, no retractions or nasal flaring. Abdomen/GI: Soft, non-tender, with normal bowel sounds. No distension or tympany. No guarding or rebound. No evidence of tenderness throughout. Back: No spinal tenderness. No costovertebral tenderness. Full range of motion. MS/ Extremity: Pulses equal, no cyanosis. Neurovascular intact. Full, normal range of motion. Neuro: Awake and alert, GCS 15, oriented to person, place, time, and situation. Cranial nerves II-XII grossly intact. Motor strength 5/5 in all extremities. Sensory grossly intact. Cerebellar exam normal. Normal gait. Vital Signs: 20:02 BP 146 / 95; Pulse 92; Resp 19; Temp 100; Pulse Ox 98% ; Weight 109.32 kg; Height 6 ft. rr5 0 in. (182.88 cm); Pain 7/10; 20:30 BP 137 / 83; Pulse 92; Resp 16; Pulse Ox 95% on R/A; jb4 22:00 BP 136 / 81; Pulse 79; Resp 18; Pulse Ox 95% on R/A; jb4 20:02 Body Mass Index 32.69 (109.32 kg, 182.88 cm) rr5 MDM: 20:23 Patient medically screened. tw4 08/23 02:16 Differential diagnosis: Anemia Anxiety Reaction Myocardial Infarction pneumonia, tw4 Pneumothorax Psychogenic pulmonary edema, Pulmonary Embolism reactive airway disease. Data reviewed: vital signs, nurses notes. Data interpreted: Pulse oximetry: Interpretation: normal. Counseling: I had a detailed discussion with the patient and/or guardian regarding: the historical points, exam findings, and any diagnostic results supporting the discharge/admit diagnosis. Special discussion: I discussed with the patient/guardian in detail that at this point there is no indication for admission to the hospital. It is understood, however, that if the symptoms persist or worsen the patient needs to return immediately for re-evaluation. 08/22 20:39 Order name: Strep; Complete Time: 21:28 [facility] 08/22 21:28 Interpretation: Within normal limits. [facility] 08/22 20:31 Order name: CXR XRAY; Complete Time: 21:29 4 08/22 21:29 Interpretation: No acute disease. [facility] 08/22 21:12 Order name: Throat Culture [facility] 08/22 22:11 Order name: SARS-COV-2 RT PCR EDME Administered Medications: 08/22 21:22 Drug: TORadol 60 mg Route: IM; Site: left gluteus; [facility] 22:00 Follow up: Response: No adverse reaction; Marked relief of symptoms; Pain is decreased [facility] Disposition: 08/22/20 22:31 Discharged to Home. Impression: Coronavirus infection, unspecified. - Condition is Stable. - Discharge Instructions: Upper Respiratory Infection, Adult, Viral Respiratory Infection, [id number], COVID-19. - Prescriptions for Medrol (Braden) 4 mg Oral Tablets, Dose Pack - take 1 tablet by ORAL route as directed - follow package instructions; 1 packet. Albuterol Sulfate 90 mcg/actuation - inhale 1-2 puff by INHALATION route every 4-6 hours; 1 Inhaler. - Work release form, Medication Reconciliation Form, Thank You Letter, Antibiotic Education, Prescription Opioid Use form. - Follow up: Private Physician; When: Upon discharge from the Emergency Department; Reason: Recheck today's complaints, Continuance of care, Re-evaluation by your physician. - Problem is new. - Symptoms have improved. Signatures: Dispatcher [employer] [facility] Yves Patel RN RN jb4 Deniz Mckeon MD MD tw4 Harjit Donovan RN RN rr5 Corrections: (The following items were deleted from the chart) 21:18 20:32 CORONAVIRUS+MR.LAB.BRZ ordered. [facility] 22:43 22:31 08/22/2020 22:31 Discharged to Home. Impression: Coronavirus infection, jb4 unspecified. Condition is Stable. Forms are Medication Reconciliation Form, Thank You Letter, Antibiotic Education, Prescription Opioid Use. Follow up: Private Physician; When: Upon discharge from the Emergency Department; Reason: Recheck today's complaints, Continuance of care, Re-evaluation by your physician. Problem is new. Symptoms have improved. tw4
== END 2020-08-22 22:43 | disposition home or self-care (01) ==
LOC: ER 19:48
DX: U07.1 COVID-19 (principal); F17.210 Nicotine dependence, cigarettes, uncomplicated
CPT/HCPCS: 71045; 87070; 87081; 96372; 99284; U0003

== ENCOUNTER 2021-03-30 11:24 | Emergency (ER) | payer SELFPAY ==
[2021-03-30 14:15] LABS: SARS-COV-2 RT PCR NEGATIVE (NEGATIVE)
--- NOTE | 2021-03-30 14:29 | EDPHYS ---
Physician Documentation [facility] Name: Pablito Randolph Age: 25 yrs Sex: Male : 1995 Arrival Date: 03/30/2021 Time: 11:26 Bed 19 Private MD: ED Physician Kim Ventura HPI: 03/30 13:44 This 25 yrs old Male presents to ER via Ambulatory with complaints of Sore ma2 Throat, Congestion. 13:44 The patient presents with sore throat. Onset: The symptoms/episode began/occurred ma2 gradually, 1 day(s) ago. Severity of symptoms: At their worst the symptoms were mild, in the emergency department the symptoms are unchanged. Associated signs and symptoms: Pertinent positives: cough, rhinorrhea, Pertinent negatives cough, earache, flu-like symptoms, nausea. The patient has experienced similar episodes in the past. Historical: - Allergies: 12:00 No Known Allergies; vg1 - Home Meds: 12:00 None [Active]; vg1 - PMHx: 12:00 ADD/ADHD; vg1 - PSHx: 12:00 None; vg1 - Immunization history:: Client reports having NOT received the Covid vaccine. - Social history:: Smoking status: Patient reports the use of cigarette tobacco products, smokes one-half pack cigarettes per day. - Family history:: not pertinent. ROS: 13:44 Constitutional: Negative for fever, chills, and weight loss. ma2 13:44 All other systems are negative. Exam: 13:44 Constitutional: This is a well developed, well nourished patient who is awake, alert, ma2 and in no acute distress. Head/Face: Normocephalic, atraumatic. Eyes: Pupils equal round and reactive to light, extra-ocular motions intact. Lids and lashes normal. Conjunctiva and sclera are non-icteric and not injected. Cornea within normal limits. Periorbital areas with no swelling, redness, or edema. ENT: red oropharynx, otherwise Nares patent. No nasal discharge, no septal abnormalities noted. Tympanic membranes are normal and external auditory canals are clear. Oropharynx with no redness, swelling, or masses, exudates, or evidence of obstruction, uvula midline. Mucous membranes moist. Neck: Trachea midline, no thyromegaly or masses palpated, and no cervical lymphadenopathy. Supple, full range of motion without nuchal rigidity, or vertebral point tenderness. No Meningismus. Chest/axilla: Normal chest wall appearance and motion. Nontender with no deformity. No lesions are appreciated. Cardiovascular: Regular rate and rhythm with a normal S1 and S2. No gallops, murmurs, or rubs. Normal PMI, no JVD. No pulse deficits. Respiratory: Lungs have equal breath sounds bilaterally, clear to auscultation and percussion. No rales, rhonchi or wheezes noted. No increased work of breathing, no retractions or nasal flaring. Abdomen/GI: Soft, non-tender, with normal bowel sounds. No distension or tympany. No guarding or rebound. No evidence of tenderness throughout. MS/ Extremity: Pulses equal, no cyanosis. Neurovascular intact. Full, normal range of motion. Neuro: Awake and alert, GCS 15, oriented to person, place, time, and situation. Cranial nerves II-XII grossly intact. Motor strength 5/5 in all extremities. Sensory grossly intact. Cerebellar exam normal. Normal gait. Vital Signs: 11:57 BP 103 / 85; Pulse 80; Resp 16; Temp 98.6; Pulse Ox 100% ; Weight 108.86 kg; Height 6 vg1 ft. 2 in. (187.96 cm); Pain 0/10; 13:40 BP 108 / 76; Pulse 78; Resp 20; Temp 100(O); Pulse Ox 100% ; sl2 11:57 Body Mass Index 30.81 (108.86 kg, 187.96 cm) vg1 MDM: 13:36 Patient medically screened. ma2 13:44 Differential diagnosis: gastroesophageal reflux disease, pharyngitis, upper respiratory ma2 infection, viral syndrome. 14:27 Data reviewed: vital signs, nurses notes. Counseling: I had a detailed discussion with ma2 the patient and/or guardian regarding: the historical points, exam findings, and any diagnostic results supporting the discharge/admit diagnosis, the presence of at least one elevated blood pressure reading (>120/80) during this emergency department visit, the need for outpatient follow up. Response to treatment: the patient's symptoms have markedly improved after treatment. 03/30 11:57 Order name: Strep; Complete Time: 13:59 vg1 03/30 13:35 Order name: COVID-19/FLU A+B; Complete Time: 14:27 EDMS 03/30 13:52 Order name: Throat Culture EDMS Administered Medications: No medications were administered Disposition Summary: 03/30/21 14:28 Discharge Ordered Location: Home ma2 Condition: Stable ma2 Diagnosis - Acute upper respiratory infection, unspecified ma2 Followup: ma2 - With: Private Physician - When: Tomorrow - Reason: Continuance of care Discharge Instructions: - Discharge Summary Sheet ma2 - Upper Respiratory Infection, Adult ma2 Forms: - Medication Reconciliation Form ma2 - Work release form ss - Thank You Letter ma2 - Antibiotic Education ma2 - Prescription Opioid Use ma2 Prescriptions: - Zithromax Z-Braden 250 mg Oral Tablet - take 1 tablet by ORAL route as directed for 5 days Day 1 - take two (2) tablets ma2 one time. Day 2, 3, 4 , 5 take one (1) tablet once daily.; 6 tablet; Refills: 0, Product Selection Permitted - Medrol (Braden) 4 mg Oral Tablets, Dose Pack - take 1 tablet by ORAL route as directed - follow package instructions; 1 ma2 packet; Refills: 0, Product Selection Permitted Signatures: Dispatcher [employer] EDMS Kim Ventura MD MD ma2 Karin Martin RN RN vg1 Corrections: (The following items were deleted from the chart) 13:35 11:58 CORONAVIRUS+MR.LAB.BRZ ordered. EDMS EDMS 13:36 11:58 Influenza Screen (A \T\ B)+BA.LAB.BRZ ordered. EDMS EDMS
--- NOTE | 2021-03-30 14:29 | ER ---
Nurse's Notes [facility] Name: Pablito Randolph Age: 25 yrs Sex: Male : 1995 Arrival Date: 03/30/2021 Time: 11:26 Bed 19 Private MD: Diagnosis: Acute upper respiratory infection, unspecified Presentation: 03/30 11:57 Chief complaint: Patient states: Sore throat, cough, congestion, runny nose and vg1 sneezing began yesterday morning. States that 'is having shortness of breath' at rest. States is having diarrhea, denies [place]. Coronavirus screen: Vaccine status: Patient reports being unvaccinated. Client denies travel out of the [place] in the last 14 days. Ebola Screen: Patient negative for fever greater than or equal to 101.5 degrees Fahrenheit, and additional compatible Ebola Virus Disease symptoms. Initial Sepsis Screen: Does the patient meet any 2 criteria? No. Patient's initial sepsis screen is negative. Does the patient have a suspected source of infection? No. Patient's initial sepsis screen is negative. Risk Assessment: Do you want to hurt yourself or someone else? Patient reports no desire to harm self or others. Onset of symptoms was March 29, 2021. 11:57 Method Of Arrival: Ambulatory vg1 11:57 Acuity: CHUY 4 vg1 Triage Assessment: 12:00 General: Appears in no apparent distress. comfortable, Behavior is calm, cooperative. vg1 Pain: Denies pain. EENT: Throat is clear. Historical: - Allergies: 12:00 No Known Allergies; vg1 - Home Meds: 12:00 None [Active]; vg1 - PMHx: 12:00 ADD/ADHD; vg1 - PSHx: 12:00 None; vg1 - Immunization history:: Client reports having NOT received the Covid vaccine. - Social history:: Smoking status: Patient reports the use of cigarette tobacco products, smokes one-half pack cigarettes per day. - Family history:: not pertinent. Screenin:40 Abuse screen: Denies threats or abuse. Nutritional screening: No deficits noted. sl2 Tuberculosis screening: No symptoms or risk factors identified. Never had TB. Possible symptoms: None Risk factors: None. Fall Risk None identified. No fall in past 12 months (0 pts). No secondary diagnosis (0 pts). No IV (0 pts). Ambulatory Aid- None/Bed Rest/Nurse Assist (0 pts). Gait- Normal/Bed Rest/Wheelchair (0 pts) Mental Status- Oriented to own ability (0 pts). Total Owens Fall Scale indicates No Risk (0-24 pts). Assessment: 13:40 General: Appears uncomfortable, well groomed, well developed, Behavior is calm, sl2 cooperative, appropriate for age, Reports Congestion, frequent cough, shortness of breath with exertion and diarrhea. 13:40 Pain: Complains of pain in Generalized body ache Pain does not radiate. Pain radiates sl2 to Generalized body ache Pain currently is 4 out of 10 on a pain scale. Quality of pain is described as aching. Neuro: No deficits noted. Cardiovascular: No deficits noted. Respiratory: Airway is patent Trachea midline Respiratory effort is Respiratory pattern is regular, symmetrical, Breath sounds are clear bilaterally. Respiratory: Reports shortness of breath on exertion cough that is non-productive. GI: Abdomen is round Bowel sounds present X 4 quads. Abd is soft and non tender Reports diarrhea. : No deficits noted. No signs and/or symptoms were reported regarding the genitourinary system. EENT: Reports nasal congestion. EENT: Reports. Derm: No deficits noted. No signs and/or symptoms reported regarding the dermatologic system. Musculoskeletal: Reports pain in Generalized body ache. Vital Signs: 11:57 BP 103 / 85; Pulse 80; Resp 16; Temp 98.6; Pulse Ox 100% ; Weight 108.86 kg; Height 6 vg1 ft. 2 in. (187.96 cm); Pain 0/10; 13:40 BP 108 / 76; Pulse 78; Resp 20; Temp 100(O); Pulse Ox 100% ; sl2 11:57 Body Mass Index 30.81 (108.86 kg, 187.96 cm) vg1 ED Course: 11:26 Patient arrived in ED. ds1 12:00 Triage completed. vg1 12:00 Arm band placed on. vg1 12:04 COVID swab sent to lab. Flu and/or RSV swab sent to lab. Strep swab sent to lab. vg1 13:36 Kim Ventura MD is Attending Physician. ma2 13:40 Patient has correct armband on for positive identification. Placed in gown. Bed in low sl2 position. Call light in reach. Adult w/ patient. 13:40 No provider procedures requiring assistance completed. Patient did not have IV access sl2 during this emergency room visit. 14:23 Tita Bliss, RN is Primary Nurse. sl2 Administered Medications: No medications were administered Outcome: 14:28 Discharge ordered by . marilyn 14:50 Discharged to home ambulatory. ss 14:50 Condition: good 14:50 Discharge instructions given to patient, family, Instructed on discharge instructions, follow up and referral plans. medication usage, Demonstrated understanding of instructions, follow-up care, medications, Prescriptions given X 2. 14:50 Patient left the ED. ss Signatures: Juliana Nash ds1 Krista Lagos, RN RN Kim Ventura MD MD ma2 Karin Martin RN RN 1 Tita Bliss, RN RN sl2
[2021-03-30 15:26] VITALS: O2SAT 100
[2021-03-30 15:27] VITALS: BP 108/76; TEMP 100
--- OUTSIDE RECORDS SUMMARY | 2021-04-02 19:10 | XMS REPORT | Continuity of Care Document ---
:1995 Author Organization [facility] t Address [address] [place] [address] Care Team Providers Name Role Phone GREEN Attending Clinician Unavailable Pob1, Care Clinic Attending Clinician Unavailable Zachery REYNA Attending Clinician ZACHERY Attending Clinician Unavailable Vijay RYAN Attending Clinician Phu BOJORQUEZ A Attending Clinician Bob RYAN Attending Clinician PHU, Yung Attending Clinician Unavailable Doctor Unassigned, Name Attending Clinician Unavailable Candelario RYAN Attending Clinician Problems Condition Condition Condition Status Onset Resolution Last Treating Co mments Source Name Details Category Date Date Treatment Clinician Date Upper Upper Disease Active 0 Univers respirator respirator 3-24 it y of y tract y tract 00:00: [place] infection, infection, 00 Me dical unspecifie unspecifie Br anch d type d type Tobacco Tobacco Disease Active 0 Univers dependence dependence 3-24 it y of 00:00: [address] No known No known Disease Unive rs active active ity of problems problems [facility] Allergies, Adverse Reactions, Alerts Allergy Allergy Status Severity Reaction(s) Onset Inactive Treating Comm ents Source Name Type Date Date Clinician NO KNOWN Drug Active Univers ALLERGIE Class ity of S [facility] Social History Social Habit Start Date Stop Date Quantity Comments Source History of tobacco Cigarette Smoker University [facility] Sex Assigned At Universit y of [facility] Cigarettes smoked 2019-08-26 2019-08-26 Univers ity of current (pack per 00:00:00 00:00:00 ) - Reported Branch Cigarette 2019-08-26 2019-08-26 [facility] pack-years 00:00:00 00:00:00 [facility] Alcohol intake 2019-08-26 2019-08-26 University of 00:00:00 00:00:00 [facility] Alcohol Comment 2019-08-13 2019-08-13 once a month Univers ity of 00:00:00 00:00:00 [facility] Smoking Status Start Date Stop Date Source Current every day smoker 2019-08-26 00:00:00 [facility] versity [facility] Unknown if ever smoked [facility] Medications Ordered Filled Start Stop Current Ordering Indication Dosage Frequency Signature Comments Components Source Medication Medication Date Date Medication? Clinician (SIG) Name Name víctorluanaga Yes [id number] 250mg Take 1 Univers n 4-07 tablet by ity of (ZITHROMAX 00:00: mouth [place] Z-ALPHONSE) 250 00 daily. Medical mg tablet Take 500 Branch mg day 1, then 250 mg days 2 to 5. ibuprofen Yes 600mg Take 1 Unive rs 600 mg 5-02 tablet by ity of tablet 00:00: mouth [place] 00 every 6 Medical (six) Branch hours as needed for Pain (scale 4-6). sulfamethox 2016-05 Yes 1{tbl} Take 1 Un maría elena azole-trime 0-23 tablet by ity of thoprim 00:00: mouth [place] 800-160 mg 00 every 12 Medic al per tablet (twelve) Branc h hours. acyclovir 2016-05 Yes 800mg Take 4 Unive rs 200 mg 0-23 capsules ity of capsule [place]:00[place] (five) Medical times Branch daily. mupirocin 2016-05 Yes Apply to Uni vers (BACTROBAN) 0-23 affected ity of 2 % cream 00:00: area(s) 3 [place] as 00 (three) Medical times Branch daily. sulfamethox 2016-05 Yes 1{tbl} Take 1 Un maría elena azole-trime 0-23 tablet by ity of thoprim 00:00: mouth [place] 800-160 mg 00 every 12 Medic al per tablet (twelve) Branc h hours. sulfamethox 2017- Yes 1{tbl} Take 1 Un maría elena azole-trime 0-23 tablet by ity of thoprim 00:00: mouth [place] 800-160 mg 00 every 12 Medic al per tablet (twelve) Branc h hours. amoxicillin 2017-0 Yes 500mg Take 1 Uni vers 500 mg 3-21 capsule by ity of capsule 00:00: mouth (three) Medical times Branch daily. traMADOL 2017-0 Yes 50mg Take 1 Univers (ULTRAM) 50 3-05 tablet by ity of mg tablet 00:00: mouth 00 every 6 Medical (six) Branch hours as needed for Pain (scale 4-6). Juan José Brand PA-C / Jay Dsouza MD HALEY# [id number] DPS# [id number] x Lic.# [id number] NPI# [id number] benzonatate 2017-0 Yes 200mg Take 1 Uni vers 200 mg 1-09 capsule by ity of capsule 00:00: mouth (three) Medical times Malin daily as needed for Cough. azithromyci 2017-0 Yes 250mg Take 1 Uni vers n 250 mg 1-09 tablet by ity of tablet 00:00: mouth 00 daily. Medical Branch No known No Univers medications [facility] No known No Univers medications [facility] No known No Univers medications [facility] No known No Univers medications [facility] No known No Univers medications [facility] No known No Univers medications [facility] Vital Signs Vital Name Observation Time Observation Value Comments Source Respiratory rate 2019-08-26 19:03:00 18 /min [facility] Body height 2019-08-26 19:03:00 188 cm [facility] Body weight 2019-08-26 19:03:00 108.863 kg [facility] BMI 2019-08-26 19:03:00 30.81 kg/m2 [facility] Oxygen saturation in 2019-08-26 19:03:00 100 /min [facility] Arterial blood by [facility] Pulse oximetry Branch Systolic blood 2019-08-26 19:03:00 132 mm[Hg] Univer sity of pressure [place] [facility] Diastolic blood 2019-08-26 19:03:00 85 mm[Hg] Unive rsity of pressure [place] [facility] Heart rate 2019-08-26 19:03:00 103 /min Universi ty of [place] [facility] Body temperature 2019-08-26 19:03:00 36.72 Sri Univ ersity of [place] [facility] Respiratory rate 2019-08-26 19:03:00 18 /min Univ ersity of [place] [facility] Body height 2019-08-26 19:03:00 188 cm Universi ty of [place] [facility] Body weight 2019-08-26 19:03:00 108.863 kg Universi ty of [place] [facility] BMI 2019-08-26 19:03:00 30.81 kg/m2 Universi ty of [facility] Branch Oxygen saturation in 2019-08-26 19:03:00 100 /min University of Arterial blood by [place] [employer] [facility] Pulse oximetry Branch Systolic blood 2019-08-26 19:03:00 132 mm[Hg] Univer sity of pressure [place] [facility] Diastolic blood 2019-08-26 19:03:00 85 mm[Hg] Unive rsity of pressure [place] [facility] Heart rate 2019-08-26 19:03:00 103 /min Universi ty of [place] [facility] Body temperature 2019-08-26 19:03:00 36.72 Sri Univ ersity of [place] [facility] Systolic blood 2019-08-13 15:49:00 122 mm[Hg] Univer sity of pressure [place] [facility] Diastolic blood 2019-08-13 15:49:00 79 mm[Hg] Unive rsity of pressure [place] [facility] Heart rate 2019-08-13 15:49:00 72 /min Universi ty of [place] [facility] Body temperature 2019-08-13 15:49:00 36.83 Sri Univ ersity of [place] [facility] Respiratory rate 2019-08-13 15:49:00 18 /min Univ ersity of [place] [facility] Body weight 2019-08-13 15:49:00 110.224 kg Universi ty of [place] [facility] BMI 2019-08-13 15:49:00 31.20 kg/m2 Universi ty of [facility] Branch Oxygen saturation in 2019-08-13 15:49:00 98 /min University of Arterial blood by [place] [employer] [facility] Pulse oximetry Branch Systolic blood 2019-08-13 15:49:00 122 mm[Hg] Univer sity of pressure [place] [facility] Mal[place] Diastolic blood 2019-08-13 15:49:00 79 mm[Hg] Unive rsity of pressure [facility] Heart rate 2019-08-13 15:49:00 72 /min Universi ty [facility] Body temperature 2019-08-13 15:49:00 36.83 [facility] Respiratory rate 2019-08-13 15:49:00 18 /min [facility] Body weight 2019-08-13 15:49:00 110.224 kg Universi ty [facility] BMI 2019-08-13 15:49:00 31.20 kg/m2 [facility] Oxygen saturation in 2019-08-13 15:49:00 98 /min University of Arterial blood by [facility] Pulse oximetry Branch Systolic blood 2018-12-19 17:58:00 115 mm[Hg] Univer sity of pressure [facility] Diastolic blood 2018-12-19 17:58:00 92 mm[Hg] Unive rsity of [facility] Heart rate 2018-12-19 17:58:00 68 /[facility] 2018-12-19 17:58:00 18 /min [facility] Oxygen saturation in 2018-12-19 17:58:00 98 /min University of Arterial blood by [facility] Pulse oximetry Branch Body temperature 2018-12-19 16:45:00 36.67 Sri [facility] Body height 2018-12-19 16:45:00 188 cm [facility] Body weight 2018-12-19 16:45:00 109.77 kg [facility] BMI 2018-12-19 16:45:00 31.07 kg/m2 [facility] Procedures Procedure Date / Time Performed Performing Clinician Sourc e POCT GRP A STREP 2019-08-26 19:28:00 Rossy Ross [facility] (MOLECULAR) [facility] ASSIGNMENT OF BENEFITS 2019-08-13 05:01:00 Doctor Unassigned, No [facility] Name Medical Branch XR KUB 2018-12-19 17:31:13 Mraquise [place] o f [facility] Encounters Start End Encounter Admission Attending Care Care Encounter Source Date/Time Date/Time Type Type Clinicians Facility Department ID 2020-08-21 2020-08-21 Outpatient R [facility] [id number] Univers 15:00:00 15:00:00 [id number] ity [facility] 2020-08-21 2020-08-21 [facility] [id number] Univers 15:00:00 15:00:00 [facility] 2020-05-19 Outpatient R [facility] [id number] Univers 11:00:00 11:00:00 [id number] ity [facility] 2019-08-26 2019-08-26 Urgent Pob1, Acute [facility] [id number] 13:54:03 14:14:03 [facility] [id number] [place] [id number] Professio [phone] nal [facility] Office [address] 2019-08-26 2019-08-26 Urgent Pob1, Acute Care Clinic [facility] 1. 2.840.114 [id number] Univers 13:54:03 14:14:03 [facility] [id number] ity of [place] [id number] [place] as Professio [phone] Co dical [address] Office [address] 2019-08-26 2019-08-26 Outpatient R [facility] [id number] Univers 13:40:00 13:40:00 [id number] ity [facility] 2019-08-26 2019-08-26 [facility] [id number] Univers 13:40:00 13:40:00 CHERYL ity [facility] 2019-08-26 2019-08-26 Telephone Pob1, Acute [facility] 1.2.840.114 [id number] 00:00:00 00:00:00 [facility] Health [id number] [place] [id number] Professio [phone] nal [facility] Office [address] 2019-08-26 2019-08-26 Telephone Pob1, Acute [facility] 1.2.840.114 [id number] Univers 00:00:00 00:00:00 [facility] [id number] ity of [place] [id number] [place] as Professio [phone] [address] 2019-08-21 2019-08-21 Telephone [facility] 1.2.840.114 [id number] 00:00:00 00:00:00 Max Trotter [id number] [place] [id number] Professio [phone] [address] 2019-08-21 2019-08-21 Telephone [facility] 1.2.840.114 [id number] [facility] 00:00:00 00:00:00 Peter [place] [id number] i ty [place] [id number] Profess[place] [phone] [address] 2019-08-15 2019-08-15 [facility] 1.2.840.114 [id number] 00:00:00 00:00:00 (Out) Sophie A Sergo [id number] [place] [id number] Professio [phone] [address] 2019-08-15 2019-08-15 Letter Phu [facility] 1.2.840.114 [id number] Univers 00:00:00 00:00:00 (Out) Sophie Trotter [id number] ity [place] [id number] [phone] [address] 2019-08-13 2019-08-13 Office Pob1, Acute Care Clinic [facility] 1. 2.840.114 [id number] [facility] 10:22:52 11:31:16 [facility] [id number] ity of [place]oph[place] 4.2.7.2.686 [place] Professio [phone] [address] 2019-08-13 2019-08-13 Office Pob1, Acute [facility] 1.2.840.114 [id number] 10:22:52 11:31:16 Visit Care [facility] [id number] [place] [id number] [facility] [phone] nal 0[address] 2019-08-13 2019-08-13 Outpatient R PHU [facility] [id number] Univers 10:40:00 10:40:00 SOPHIE ity of [facility] 2019-08-13 2019-08-13 Orders Doctor SANDRA 1.2.840.114 [id number] Univers 00:00:00 00:00:00 Only Unassigned, MARÍA [id number] ity of [place] [facility] [id number] [facility] [phone] [address] 2019-08-13 2019-08-13 Orders Doctor SANDRA 1.2.840.114 [id number] 00:00:00 00:00:00 Only Unassigned, MARÍA [id number] [place] [facility] [id number] [id number] 2018-12-19 2018-12-19 [facility] [id number] [facility] 11:41:09 13:35:00 Marquise Trotter [id number] i ty [facility] [id number] [facility] [phone] [address] Results Test Description Test Time Test Comments Results Result Comments Source POCT GRP A STREP (MOLECULAR) 2019-08-26 19:28:00 Test Item Value Reference Range Interpretation Comme nts POCT GP A STREP (test code = 85249-0) negative Negative - Negat curtis Lab Interpretation (test code = 44735-1) [id number] 17:39:31HISTORY: Abdominal pain. FINDINGS: 2 abdominal images showed unremarkable intestinal gas pattern. Noorganomegaly. Calcifications in the left upper abdomen likely phlebolithswithin the spleen. Calcifications are also seen in the right upper abdomen,uncertain location. No definite kidney stone or gallstone. No aggressivebone lesions. CONCLUSIONS: No acute findings. [facility], Radiant Results Inft - 12/19/2018 12:39 PM CDTHISTORY: Abdominal pain.FINDINGS: 2 abdominal images showed unremarkable intestinal gas pattern. Noorganomegaly. Calcifications in the left upper abdomen likely phlebolithswithin the spleen. Calcifications are also seen in the right upper abdomen,uncertain location. No definite kidney stone or gallstone. No aggressivebone lesions.CONCLUSIONS: No acute findings.[facility]
== END 2021-03-30 14:50 | disposition home or self-care (01) ==
LOC: ER 11:24
DX: J06.9 Acute upper respiratory infection, unspecified (principal); F17.210 Nicotine dependence, cigarettes, uncomplicated
CPT/HCPCS: 0240U; 87070; 87081; 99283

== ENCOUNTER 2021-07-27 15:57 | Emergency (ER) | payer SELFPAY ==
--- OUTSIDE RECORDS SUMMARY | 2021-07-27 16:00 | XMS REPORT | Continuity of Care Document ---
:1995 Author Organization [facility] t Address [address] [place] [address] Care Team Providers Name Role Phone VIJAY Primary Care Physician Unavailable Michael HARRIS Attending Clinician Unavailable Michael Harris NP Attending Clinician PETRA Attending Clinician Unavailable [facility] Attending Clinician Unavailable Zachery REYNA Attending Clinician ZACHERY Attending Clinician Unavailable Vijay RYAN Attending Clinician Yung [place] Attending Clinician Bob RYAN Attending Clinician Yung BAY Attending Clinician Unavailable Doctor Unassigned, Name Attending Clinician Unavailable Candelario RYAN Attending Clinician Problems Condition Condition Condition Status Onset Resolution Last Treating Co mments Source Name Details Category Date Date Treatment Clinician Date Upper Upper Disease Active Univers respirator respirator 3-24 it y of y tract y tract 00:00: [place] infection, infection, 00 Me dical unspecifie unspecifie Br anch d type d type Tobacco Tobacco Disease Active Univers dependence dependence 3-24 it y of 00:00: [place] 00 Medical Branch No known No known Disease Unive rs active active ity of problems problems [facility] Allergies, Adverse Reactions, Alerts Allergy Allergy Status Severity Reaction(s) Onset Inactive Treating Comm ents Source Name Type Date Date Clinician NO KNOWN Drug Active Univers ALLERGIE Class ity of S [facility] Social History Social Habit Start Date Stop Date Quantity Comments Source History SDOH University o f Alcohol Frequency [facility] edical Branch History SDOH University o f Alcohol Std Drinks [place] [facility] History SDWA University o f Alcohol Binge [facility] al Branch Exposure to Yes University SARS-CoV-2 (event) [facility] History of tobacco Cigarette Smoker University of use [facility] Alcohol intake 2021-05-19 2021-05-19 Current drinker Unive rsity of 00:00:00 00:00:00 of alcohol [facility] (finding) [place] Alcohol Comment 2019-08-13 2019-08-13 once a month Univers ity of 00:00:00 00:00:00 [facility] Tobacco use and 2019-02-26 2019-02-26 Never used Universit y of exposure 00:00:00 00:00:00 [facility] Cigarettes smoked 2019-02-26 2019-02-26 Univers ity of current (pack per 00:00:00 00:00:00 [facility] ) - Reported Branch Cigarette 2019-02-26 2019-02-26 University of pack-years 00:00:00 00:00:00 [facility] Sex [birth year] Universit y of 00:00:00 00:00:00 [facility] Smoking Status Start Date Stop Date Source Current every day smoker 2019-02-26 00:00:00 Uni versity of [facility] Unknown if ever smoked Universit y of [facility] Medications Ordered Filled Start Stop Current Ordering Indication Dosage Frequency Signature Comments Components Source Medication Medication Date Date Medication? Clinician (SIG) Name Name azithromyci Yes [id number] 250mg Take 1 Univers n 4-07 tablet by ity of (ZITHROMAX 00:00: mouth [place] Z-ALPHONSE) 250 00 daily. Medical mg tablet Take 500 Branch mg day 1, then 250 mg days 2 to 5. azithromyci Yes [id number] 250mg Take 1 Univers n 4-07 tablet by ity of (ZITHROMAX 00:00: mouth [place] Z-ALPHONSE) 250 00 daily. Medical mg tablet Take 500 Branch mg day 1, then 250 mg days 2 to 5. ibuprofen 2018-0 Yes 600mg Take 1 Unive rs 600 mg 5-02 tablet by ity of tablet 00:00: mouth [place] 00 every 6 Medical (six) Branch hours as needed for Pain (scale 4-6). sulfamethox 2017- Yes 1{tbl} Take 1 Un maría elena azole-trime 0-23 tablet by ity of thoprim 00:00: mouth [place] 800-160 mg 00 every 12 Medic al per tablet (twelve) Branc h hours. acyclovir 2016- Yes 800mg Take 4 Unive rs 200 mg 0-23 capsules ity of capsule 00:00[place] (five) Medical times Branch daily. mupirocin 2016-05 Yes Apply to Uni vers (BACTROBAN) 0-23 affected ity of 2 % cream 00:00: area(s) 3 [place] as 00 (three) Medical times Branch daily. sulfamethox 2016- Yes 1{tbl} Take 1 Un maría elena azole-trime 0-23 tablet by ity of thoprim 00:00: mouth [place] 800-160 mg 00 every 12 Medic al per tablet (twelve) Branc h hours. sulfamethox 2017- Yes 1{tbl} Take 1 Un maría elena azole-trime 0-23 tablet by ity of thoprim 00:00: mouth [place] 800-160 mg 00 every 12 Medic al per tablet (twelve) Branc h hours. amoxicillin 2017- Yes 500mg Take 1 Uni vers 500 mg 3-21 capsule by ity of capsule 00:00: mouth 3 [place] 00 (three) Medical times Branch daily. traMADOL 2017-0 Yes 50mg Take 1 Univers (ULTRAM) 50 3-05 tablet by ity of mg tablet 00:00: mouth [place] 00 every 6 Medical (six) Branch hours as needed for Pain (scale 4-6). Juan José Brand PA-C / Jay Dsouza MD HALEY# [id number] DPS# [id number] x Lic.# [id number] NPI# [id number] benzonatate 2017-0 Yes 200mg Take 1 Uni vers 200 mg 1-09 capsule by ity of capsule 00:00: mouth 3 [place] 00 (three) Medical times Branch daily as needed for Cough. azithromyci 2017-0 Yes 250mg Take 1 Uni vers n 250 mg 1-09 tablet by ity of tablet 00:00: mouth [place] 00 daily. Medical Branch No known No Univers medications ity of [facility] No known No Univers medications ity of [facility] No known No Univers medications ity of [facility] No known No Univers medications ity of [facility] No known No Univers medications ity of [facility] No known No [facility] Vital Signs Vital Name Observation Time Observation Value Comments Source Systolic blood 2021-05-19 17:29:00 139 mm[Hg] Univer sity of pressure [facility] Diastolic blood 2021-05-19 17:29:00 74 mm[Hg] Unive rsity of [facility] Heart rate 2021-05-19 17:29:00 85 /min Universi ty of [facility] Body temperature 2021-05-19 17:29:00 36.56 [facility] Res[facility] rate 2021-05-19 17:29:00 18 /min Univ ersity [facility] Body weight 2021-05-19 17:29:00 108.863 kg Universi ty of [facility] BMI 2021-05-19 17:29:00 30.81 kg/m2 Universi ty [facility] Oxygen saturation in 2021-05-19 17:29:00 99 /min [facility] blood by [facility] Pulse oximetry Branch Systolic blood 2019-08-26 19:03:00 132 mm[Hg] Univer sity of [facility] Diastolic blood 2019-08-26 19:03:00 85 mm[Hg] Unive rsity of [facility] Heart rate 2019-08-26 19:03:00 103 /min Universi ty of [facility] Body temperature 2019-08-26 19:03:00 36.72 Sri Univ ersity [facility] Respiratory rate 2019-08-26 19:03:00 18 /min Univ ersity [facility] Body height 2019-08-26 19:03:00 188 cm Universi ty of [facility] Body weight 2019-08-26 19:03:00 108.863 kg Universi ty of [facility] BMI 2019-08-26 19:03:00 30.81 kg/m2 Universi ty [facility] Oxygen saturation in 2019-08-26 19:03:00 100 /min University of Arterial blood by [facility] Pulse oximetry Branch Systolic blood 2019-08-26 19:03:00 132 mm[Hg] Univer sity of pressure [place] [facility] Diastolic blood 2019-08-26 19:03:00 85 mm[Hg] Unive rsity of pressure [place] [facility] Heart rate 2019-08-26 19:03:00 103 /min Universi ty of [place] [facility] Body temperature 2019-08-26 19:03:00 36.72 Sri Univ ersity of [place] [facility] Respiratory rate 2019-08-26 19:03:00 18 /min Univ ersity of [place] [facility] Body height 2019-08-26 19:03:00 188 cm Universi ty of [place] [facility] Body weight 2019-08-26 19:03:00 108.863 kg Universi ty of [place] [facility] BMI 2019-08-26 19:03:00 30.81 kg/m2 Universi ty of [place] [facility] Oxygen saturation in 2019-08-26 19:03:00 100 /min University of Arterial blood by [facility] Pulse oximetry Branch Systolic blood 2019-08-13 15:49:00 122 mm[Hg] Univer sity of pressure [place] [facility] Diastolic blood 2019-08-13 15:49:00 79 mm[Hg] Unive rsity of pressure [place] [facility] Heart rate 2019-08-13 15:49:00 72 /min Universi ty of [place] [facility] Body temperature 2019-08-13 15:49:00 36.83 Sri Univ ersity of [place] [facility] Respiratory rate 2019-08-13 15:49:00 18 /min Univ ersity of [place] [facility] Body weight 2019-08-13 15:49:00 110.224 kg Universi ty of [place] [facility] BMI 2019-08-13 15:49:00 31.20 kg/m2 Universi ty of [place] [facility] Oxygen saturation in 2019-08-13 15:49:00 98 /min University of Arterial blood by [facility] Pulse oximetry Branch Systolic blood 2019-08-13 15:49:00 122 mm[Hg] Univer sity of pressure [place] [facility] Diastolic blood 2019-08-13 15:49:00 79 mm[Hg] Unive rsity of pressure [place] [facility] Heart rate 2019-08-13 15:49:00 72 /min Universi ty of [place] [facility] Body temperature 2019-08-13 15:49:00 36.83 Sri [facility] ersity of [facility] Respiratory rate 2019-08-13 15:49:00 18 /min [facility] Body weight 2019-08-13 15:49:00 110.224 kg [facility] BMI 2019-08-13 15:49:00 31.20 kg/m2 [facility] ty [facility] Oxygen saturation in 2019-08-13 15:49:00 98 /min [facility] Arterial blood by [facility] Pulse oximetry Branch Systolic blood 2018-12-19 17:58:00 115 mm[Hg] Univer sity of pressure [facility] Diastolic blood 2018-12-19 17:58:00 92 mm[Hg] Unive rsity of [facility] Heart rate 2018-12-19 17:58:00 68 /min [facility] Respiratory rate 2018-12-19 17:58:00 18 /min [facility] Oxygen saturation in 2018-12-19 17:58:00 98 /min [facility] Arterial blood by [facility] Pulse oximetry Branch Body temperature 2018-12-19 16:45:00 36.67 Sri [facility] Body height 2018-12-19 16:45:00 188 cm [facility] Body weight 2018-12-19 16:45:00 109.77 kg [facility] BMI 2018-12-19 16:45:00 31.07 kg/m2 [facility] Procedures Procedure Date / Time Performed Performing Clinician Souryoselin e RAPID INFLUENZA A/B 2021-05-19 17:36:00 Gregorio Harris [facility] CONSENT/REFUSAL FOR 2021-05-19 17:23:18 Doctor Unassigned, No Un [facility] DIAGNOSIS AND Name Medical Branch TREATMENT POCT GRP A STREP 2019-08-26 19:28:00 Rossy Ross [facility] (MOLECULAR) [facility] ASSIGNMENT OF BENEFITS 2019-08-13 05:01:00 Doctor Unassigned, No [facility] Name [facility] Branch XR KUB 2018-12-19 17:31:13 Marquise Palomino Asher o f [facility] Encounters Start End Encounter Admission Attending Care Care Encounter Source Date/Time Date/Time Type Type Clinicians Facility Department ID 2021-05-19 2021-05-19 Emergency X KIMBERLY [facility] ERT [id number] Univers 11:36:00 12:59:00 [facility] 2021-05-19 2021-05-19 Emergency Kimberly [facility] [id number] Univers 11:36:00 12:59:00 Gregorio Rodriguez [place] [id number] ity of [place] [id number] [place] [phone] [place] [id number] [place] 2020-08-21 2020-08-21 Outpatient R [facility] [id number] Univers 15:00:00 15:00:00 [id number] [facility] 2020-08-21 2020-08-21 [facility] [id number] Univers 15:00:00 15:00:00 DELANEY [facility] 2020-05-19 2020-05-19 Outpatient R [facility] [id number] Univers 11:00:00 11:00:00 [id number] [facility] 2019-08-26 2019-08-26 Urgent Pob1, Acute [facility] [id number] 13:54:03 14:14:03 Care Care [facility] [id number] [place] [id number] Professio [phone] [place] [address] [address] 2019-08-26 2019-08-26 Urgent Pob1, Acute Care [facility] 1. [id number] Univers 13:54:03 14:14:03 Care [place], [facility] [id number] ity of [place] [id number] [place] as Professio [phone] Ok dical [address] Office [address] 2019-08-26 2019-08-26 Outpatient R [facility] [id number] Univers 13:40:00 13:40:00 [id number] [facility] 2019-08-26 2019-08-26 [facility] [id number] Univers 13:40:00 13:40:00 BELLA toyluis [facility] 2019-08-26 2019-08-26 Telephone Pob1, Acute [place] [id number] 00:00:00 00:00:00 [facility] [id number] [place] [id number] Professio [phone] [address] 2019-08-26 2019-08-26 Telephone Pob1, Acute [place] [id number] [facility] 00:00:00 00:00:00 [facility] [id number] ity of [place] [id number] [place] as Professio [phone] [address] 2019-08-21 2019-08-21 Telephone [facility] 1.2.840.114 [id number] 00:00:00 00:00:00 Mxa Trotter [id number] [place] [id number] Professio [phone] [address] 2019-08-21 2019-08-21 Telephone [facility] [id number] Univers 00:00:00 00:00:00 Max Trotter [id number] i ty [id number] Profess[place] [phone] [address] 2019-08-15 2019-08-15 Letter [facility] 1.2.840.114 [id number] 00:00:00 00:00:00 (Out) Sophie Trotter [id number] [place] [id number] Professio [phone] [address] 2019-08-15 2019-08-15 Letter [facility] 1.2.840.114 [id number] Univers 00:00:00 00:00:00 (Out) Sophie [place] [id number] ity of [id number] Profess[place] [phone] [address] 2019-08-13 2019-08-13 Office Pob1, Acute Care Clinic [facility] 1. 2.840.114 [id number] Univers 10:22:52 11:31:16 Visit [facility] [id number] ity of PhuKameronSophie A [place] [id number] [place] Professio [phone] Ok dical [facility] 044 [place] [address] 2019-08-13 2019-08-13 Office Pob1, Acute [facility] 1.2.840.114 [id number] 10:22:52 11:31:16 Visit [facility] [id number] [place] [id number] Professio [phone] nal [facility] Office [address] 2019-08-13 2019-08-13 Outpatient R PHU [facility] [id number] Univers 10:40:00 10:40:00 SOPHIE martinez of [facility] 2019-08-13 2019-08-13 Orders Doctor FLORES 1.2.840.114 [id number] Univers 00:00:00 00:00:00 Only Unassigned, MARÍA [id number] ity of [place] [facility] [id number] [facility] [phone] [facility] 009 [place] 2019-08-13 2019-08-13 Orders Doctor SANDRA 1.2.840.114 [id number] 00:00:00 00:00:00 Only Unassigned, MARÍA [id number] [place] [facility] 4.2.7.2.686 [id number] 009 2018-12-19 2018-12-19 Emergency [facility] [id number] Univers 11:41:09 13:35:00 Marquise Trotter [id number] i ty of [place] [id number] [facility] [phone] [address] Results Test Description Test Time Test Comments Results Result Comments Source POCT GRP A STREP (MOLECULAR) 2019-08-26 19:28:00 Test Item Value Reference Range Interpretation Comme nts POCT GP A STREP (test code = 39034-6) negative Negative - Negat curtis Lab Interpretation (test code = 52385-0) [facility] [id number] 17:39:31HISTORY: Abdominal pain. FINDINGS: 2 abdominal images showed unremarkable intestinal gas pattern. Noorganomegaly. Calcifications in the left upper abdomen likely phlebolithswithin the spleen. Calcifications are also seen in the right upper abdomen,uncertain location. No definite kidney stone or gallstone. No aggressivebone lesions. CONCLUSIONS: No acute findings. [facility], Radiant Results Inft User - 12/19/2018 12:39 PM CDTHISTORY: Abdominal pain.FINDINGS: 2 abdominal images showed unremarkable intestinal gas pattern. Noorganomegaly. Calcifications in the left upper abdomen likely phlebolithswithin the spleen. Calcifications are also seen in the right upper abdomen,uncertain location. No definite kidney stone or gallstone. No aggressivebone lesions.CONCLUSIONS: No acute findings.[facility]
--- NOTE | 2021-07-27 16:18 | ER ---
Nurse's Notes [facility] Name: Pablito Randolph Age: 25 yrs Sex: Male : 1995 Arrival Date: 07/27/2021 Time: 16:01 Bed Waiting Private MD: Diagnosis: ED Course: 07/27 16:01 Patient arrived in ED. lorraine Administered Medications: No medications were administered Outcome: 16:18 Patient left the ED. ld1 Signatures: Lizzette Moreno RN RN ld1 Rekha Yusuf
== END 2021-07-27 16:18 | disposition left against medical advice (07) ==
LOC: ER 15:57
DX: Z02.9 Encounter for administrative examinations, unspecified (principal)

== ENCOUNTER 2022-08-06 18:37 | Emergency (ER) | payer SELFPAY ==
--- OUTSIDE RECORDS SUMMARY | 2022-08-06 18:40 | XMS REPORT | Continuity of Care Document ---
:1995 Author Organization [facility] t Address [address] [place] [address] Care Team Providers Name Role Phone KIMBERLY LINARES Primary Care Physician Unavailable GREGORIO HARRIS Attending Clinician Unavailable Kimberly PARI MUTUEL CLERKGregorio Attending Clinician DELANEY LAMBERT Attending Clinician Unavailable [facility] Attending Clinician Unavailable Bella Crespo Attending Clinician BELLA TERRY Attending Clinician Unavailable Kimberly Linares MD Attending Clinician Sophie [place] Attending Clinician Lucas Rojas MD Attending Clinician [place] Attending Clinician Unavailable Doctor Unassigned, [place] Attending Clinician Unavailable Marquise Palomino MD Attending Clinician Problems Condition Condition Condition Status Onset Resolution Last Treating Co mments Source Name Details Category Date Date Treatment Clinician Date Upper Upper Disease Active Univers respirator respirator 3-24 it y of y tract y tract 00:00: [place] infection, infection, 00 Me dical unspecifie unspecifie Br anch d type d type Tobacco Tobacco Disease Active 2020-0 Univers dependence dependence 3-24 it y of 00:00: [place] 00 Medical Branch No known No known Disease Unive rs active active ity of problems problems [facility] Allergies, Adverse Reactions, Alerts Allergy Allergy Status Severity Reaction(s) Onset Inactive Treating Comm ents Source Name Type Date Date Clinician NO KNOWN Drug Active Univers ALLERGIE Class ity of S [facility] Social History Social Habit Start Date Stop Date Quantity Comments Source History SDOH University o f Alcohol Frequency [facility] edical History SDOH University o f Alcohol Std Drinks [facility] History SDIL University o f Alcohol Binge [facility] al [place] Exposure to Yes University of SARS-CoV-2 (event) [facility] History of tobacco Cigarette Smoker University of use [facility] Alcohol intake 2021-05-19 2021-05-19 Current drinker Unive rsity of 00:00:00 00:00:00 of alcohol [facility] (finding) [place] Alcohol Comment 2019-08-13 2019-08-13 once a month Univers ity of 00:00:00 00:00:[address] [facility] Tobacco use and 2019-02-26 2019-02-26 Never used Universit y of exposure 00:00:00 00:00:[address] [facility] Cigarettes smoked 2019-02-26 2019-02-26 Univers ity of current (pack per 00:00:00 00:00:00 [facility] ) - Reported Branch Cigarette 2019-02-26 2019-02-26 University of pack-years 00:00:00 00:00:[address] [facility] Sex Ass[birth year] At [birth year] Universit y of 00:00:00 00:00:[address] [facility] Smoking Status Start Date Stop Date Source Current every day smoker 2019-02-26 00:00:[address] Uni [address] [facility] Unknown if ever smoked Universit y of [facility] Medications Ordered Filled Start Stop Current Ordering Indication Dosage Frequency Signature Comments Components Source Medication Medication Date Date Medication? Clinician (SIG) Name Name azithromyci Yes [id number] 250mg Take 1 Univers n 4-07 tablet by ity of (ZITHROMAX 00:00: mouth [place] Z-ALPHONSE) 250 00 daily. Medical mg tablet Take 500 Branch mg day 1, then 250 mg days 2 to 5. azithromyci 2019- Yes [id number] 250mg Take 1 Univers n 4-07 tablet by ity of (ZITHROMAX 00:00: mouth [place] Z-ALPHONSE) 250 00 daily. Medical mg tablet Take 500 Branch mg day 1, then 250 mg days 2 to 5. ibuprofen 2018- Yes 600mg Take 1 Unive rs 600 mg 5-02 tablet by ity of tablet 00:00: mouth [place] 00 every 6 Medical (six) Branch hours as needed for Pain (scale 4-6). sulfamethox 2017- Yes 1{tbl} Take 1 Un maría elena azole-trime 0-23 tablet by ity of thoprim 00:00: mouth [place] 800-160 mg 00 every 12 Medic al per tablet (twelve) Branc h hours. acyclovir 2017 Yes 800mg Take 4 Unive rs 200 mg 0-23 capsules ity of capsule 00:00[place] (five) Medical times Branch daily. mupirocin 2016-05 Yes Apply to Univ ers (BACTROBAN) 0-23 affected ity of 2 % cream 00:00: area(s) 3 [place] as 00 (three) Medical times Branch daily. sulfamethox 2016-05 Yes 1{tbl} Take 1 Un maría elena azole-trime 0-23 tablet by ity of thoprim 00:00: mouth [place] 800-160 mg 00 every 12 Medic al per tablet (twelve) Branc h hours. sulfamethox 2016-05 Yes 1{tbl} Take 1 Un [...] Brand PA-C / Jay Dsouza MD HALEY# [id number] DPS# [id number] Lic.# [id number] NPI# [id number] benzonatate 2017-0 Yes 200mg Take 1 Uni vers 200 mg 1-09 capsule by ity of capsule 00:00: mouth 3 00 (three) Medical times [place] daily as needed for Cough. azithromyci 2017-0 Yes 250mg Take 1 Uni vers n 250 mg 1-09 tablet by ity of tablet 00:00: mouth [place] 00 daily. Medical Branch No known No [facility] No known No [facility] No known No [facility] No known No [facility] No known No Univers medications [facility] No known No Univers medications [facility] Vital Signs Vital Name Observation Time Observation Value Comments Source Systolic blood 2021-05-19 17:29:00 139 mm[Hg] Univer sity of [facility] Diastolic blood 2021-05-19 17:29:00 74 mm[facility]Hg] [facility] 2021-05-19 17:29:00 85 /min [facility] Body temperature 2021-05-19 17:29:[address] [facility] Respiratory rate 2021-05-19 17:29:00 18 /min [facility] Body weight 2021-05-19 17:29:00 108.863 kg [facility] BMI 2021-05-19 17:29:00 30.81 kg/m2 [facility] Oxygen saturation in 2021-05-19 17:29:00 99 /min [facility] Arterial blood by [facility] Pulse oximetry Branch Systolic blood 2019-08-26 19:03:00 132 mm[Hg] Univer sity [facility] Diastolic blood 2019-08-26 19:03:00 85 mm[Hg] [facility] rate 2019-08-26 19:03:00 103 /min [facility] Body temperature 2019-08-26 19:03:[address] [facility] Respiratory rate 2019-08-26 19:03:00 18 /min [facility] Body height 2019-08-26 19:03:00 188 cm [facility] Body weight 2019-08-26 19:03:00 108.863 kg Universi ty of [place] [facility] BMI 2019-08-26 19:03:00 30.81 kg/m2 Universi ty [facility] [place] [facility] Oxygen saturation in 2019-08-26 19:03:00 100 /min University of Arterial blood by [facility] jose elias Pulse oximetry Branch Systolic blood 2019-08-26 19:03:00 132 mm[Hg] Univer sity of pressure [place] [facility] Diastolic blood 2019-08-26 19:03:00 85 mm[Hg] Unive rsity of pressure [place] [facility] Heart rate 2019-08-26 19:03:00 103 /min [facility]i [facility] [place] [facility] Body temperature 2019-08-26 19:03:00 36.72 Sri Univ ersity of [place] [facility] Respiratory rate 2019-08-26 19:03:00 18 /min Univ ersity of [place] [facility] Body height 2019-08-26 19:03:00 188 cm [facility]i [facility] [place] [facility] Body weight 2019-08-26 19:03:00 108.863 kg [facility]i [facility] [place] [facility] BMI 2019-08-26 19:03:00 30.81 kg/m2 [facility]i ty [facility] [place] [facility] Oxygen saturation in 2019-08-26 19:03:00 100 /min University of Arterial blood by [facility] Pulse oximetry Branch Systolic blood 2019-08-13 15:49:00 122 mm[Hg] Univer sity of pressure [place] [facility] Diastolic blood 2019-08-13 15:49:00 79 mm[Hg] Unive rsity of pressure [place] [facility] Heart rate 2019-08-13 15:49:00 72 /min [facility]i ty [facility] [place] [facility] Body temperature 2019-08-13 15:49:00 36.83 Sri Univ ersity of [place] [facility] Respiratory rate 2019-08-13 15:49:00 18 /min Univ ersity [facility] [place] [facility] Body weight 2019-08-13 15:49:00 110.224 kg [facility]i [facility] [place] [facility] BMI 2019-08-13 15:49:00 31.20 kg/m2 [facility]i [facility] [place] [facility] Oxygen saturation in 2019-08-13 15:49:00 98 /min University of Arterial blood by [facility] Pulse oximetry Branch Systolic blood 2019-08-13 15:49:00 122 mm[Hg] Univer sity of pressure [place] [facility] Diastolic blood 2019-08-13 15:49:00 79 mm[Hg] Unive rsity of pressure [facility] Heart rate 2019-08-13 15:49:00 72 /min [facility] Body temperature 2019-08-13 15:49:00 36.83 Sri [facility] [place] [facility] Respiratory rate 2019-08-13 15:49:00 18 /min [facility] Body weight 2019-08-13 15:49:00 110.224 kg [facility] BMI 2019-08-13 15:49:00 31.20 kg/m2 [facility] Oxygen saturation in 2019-08-13 15:49:00 98 /min University of Arterial blood by [facility] Pulse oximetry Branch Systolic blood 2018-12-19 17:58:00 115 mm[Hg] Univer sity of pressure [facility] Diastolic blood 2018-12-19 17:58:00 92 mm[Hg] Unive rsity of [facility] Heart rate 2018-12-19 17:58:00 68 /min [facility] Respiratory rate 2018-12-19 17:58:00 18 /min [facility] Oxygen saturation in 2018-12-19 17:58:00 98 /min [place] of Arterial blood by [facility] Pulse oximetry Branch Body temperature 2018-12-19 16:45:[address] [facility] Body height 2018-12-19 16:45:00 188 cm [facility] Body weight 2018-12-19 16:45:00 109.77 kg [facility] BMI 2018-12-19 16:45:00 31.07 kg/m2 [facility] Procedures Procedure Date / Time Performed Performing Clinician Sourc e RAPID INFLUENZA A/B 2021-05-19 17:36:00 Gregorio Harris [facility] CONSENT/REFUSAL FOR 2021-05-19 17:23:18 Doctor Unassigned, No Un [facility] DIAGNOSIS AND Name Medical Branch TREATMENT POCT GRP A STREP 2019-08-26 19:28:00 Rossy Ross [facility] (MOLECULAR) [facility] ASSIGNMENT OF BENEFITS 2019-08-13 05:01:00 Doctor Unassigned, No [facility] Medical Branch XR KUB 2018-12-19 17:31:13 Marquise Palomino [place] o f [facility] Encounters Start End Encounter Admission Attending Care Care Encounter Source Date/Time Date/Time Type Type Clinicians Facility Department ID 2021-05-19 2021-05-19 [id number] Univers 11:36:00 12:59:00 GREGORIO martinez [facility] 2021-05-19 2021-05-19 Emergency [facility] [id number] Univers 11:36:00 12:59:00 Gregorio TURNER [id number] ity of [place] [id number] [facility] [phone] [place] [id number] [place] 2020-08-21 2020-08-21 [facility] [id number] Univers 15:00:00 15:00:00 DELANEY ity [facility] 2019-08-26 2019-08-26 Urgent Pob1, Acute [facility] [id number] 13:54:03 14:14:03 Care Care [facility] [id number] [place] [id number] Professio [id number] [place] [address] [address] 2019-08-26 2019-08-26 Urgent Pob1, Acute Care [facility] 1. [id number] Univers 13:54:03 14:14:03 [facility] [id number] ity of [place] [id number] [facility] [place] Professio [phone] Ar dical [address] Office [address] 2019-08-26 2019-08-26 Out[facility] [id number] Univers 13:40:00 13:40:00 BELLA martinez [facility] 2019-08-26 2019-08-26 Telephone Pob1, Acute [facility] [id number] 00:00:00 00:00:00 Care [facility] [id number] [place] [id number] Professio [phone] [address] 2019-08-26 2019-08-26 Telephone Pob1, Acute [facility] [id number] Univers 00:00:00 00:00:00 [facility] [id number] ity of [place] [id number] [place] as Professio [phone] [address] 2019-08-21 2019-08-21 [facility] [id number] 00:00:00 00:00:00 [place] [id number] [place] [id number] Professio [id number] [address] 2019-08-21 2019-08-21 Telephone [facility] [id number] Univers 00:00:00 00:00:00 Peter [place] [id number] i ty of [id number] [place] [phone] [address] 2019-08-15 2019-08-15 Letter Phu [facility] [id number] 00:00:00 00:00:00 (Out) Sophie [place] [id number] [place] [id number] Professio [phone] [address] 2019-08-15 2019-08-15 [facility] [id number] Univers 00:00:00 00:00:00 (Out) Sophie [place] [id number] ity of [place] [id number] [place] [phone] [address] 2019-08-13 2019-08-13 Office Pob1, Acute Care Clinic [facility] 1. 2.840.114 [id number] [facility] 10:22:52 11:31:16 Visit [facility] [id number] ity of [place] [id number] [place] Professio [phone] [facility] 044 [place] Office [address] 2019-08-13 2019-08-13 Office Pob1, Acute [facility] [id number] 10:22:52 11:31:16 Visit Care [facility] [id number] [place] [id number] Profmarisela [phone] nal [facility] Office [address] 2019-08-13 2019-08-13 Outpatient R PHU [facility] [id number] Univers 10:40:00 10:40:00 [place]OP[place]IE ity of [facility] 2019-08-13 2019-08-13 Orders Doctor SANDRA [id number] Univers 00:00:00 00:00:00 Only Unassigned, MARÍA [id number] ity of [place] [facility] [id number] [place] [phone] [address] 2019-08-13 2019-08-13 Orders Doctor SANDRA [id number] 00:00:00 00:00:00 Only Unassigned, MARÍA [id number] [place] [facility] [id number] 2018-12-19 2018-12-19 Emergency [facility] [id number] [facility] 11:41:09 13:35:00 Marquise [place] [id number] i ty [facility] [id number] [phone] [address] Results Test Description Test Time Test Comments Results Result Comments Source POCT GRP A STREP (MOLECULAR) 2019-08-26 19:28:00 Test Item Value Reference Range Interpretation Comme nts POCT GP A STREP (test code = 79023-5) negative Negative - Negat curtis Lab Interpretation (test code = 46020-3) [id number] 17:39:31HISTORY: Abdominal pain. FINDINGS: 2 abdominal images showed unremarkable intestinal gas pattern. Noorganomegaly. Calcifications in the left upper abdomen likely phlebolithswithin the spleen. Calcifications are also seen in the right upper abdomen,uncertain location. No definite kidney stone or gallstone. No aggressivebone lesions. CONCLUSIONS: No acute findings. [facility], Radiant Results Inft User - 12/19/2018 12:39 PM CDTHISTORY: Abdominal pain.FINDINGS: 2 abdominal images showed unremarkable intestinal gas pattern. Noorganomegaly. Calcifications in the left upper abdomen likely phlebolithswithin thespleen. Calcifications are also seen in the right upper abdomen,uncertain location. No definite kidney stone or gallstone. No aggressivebone lesions.CONCLUSIONS: No acute findings.[facility]
[2022-08-06] MEDS ORDERED: METHYLPREDNISOLONE 125 MG INJ ONE (18:54)
[2022-08-06 19:51] LABS: SARS-COV-2 RT PCR NEGATIVE (NEGATIVE)
--- NOTE | 2022-08-06 19:57 | ER ---
Nurse's Notes [facility] Name: Pablito Randolph Age: 26 yrs Sex: Male : 1995 Arrival Date: 08/06/2022 Time: 18:41 Bed 9 Private MD: Diagnosis: Acute sinusitis, unspecified Presentation: 08/06 18:44 Chief complaint: Patient states: Sore throat, body aches, SOLORZANO, congestion, fatigue for 1 ll1 week. Coronavirus screen: Vaccine status: Patient reports being unvaccinated. Client denies travel out of the [place] in the last 14 days. fatigue, headache, muscle pain, sore throat, Client presents with at least one sign or symptom that may indicate coronavirus-19. Standard/surgical mask placed on the client. Ebola Screen: Patient denies travel to an Ebola-affected area in the 21 days before illness onset. Initial Sepsis Screen: Does the patient meet any 2 criteria? No. Patient's initial sepsis screen is negative. Does the patient have a suspected source of infection? No. Patient's initial sepsis screen is negative. Risk Assessment: Do you want to hurt yourself or someone else? Patient reports no desire to harm self or others. Onset of symptoms was July 31, 2022. 18:44 Method Of Arrival: Ambulatory ll1 18:44 Acuity: CHUY 4 ll1 Triage Assessment: 18:57 General: Appears uncomfortable, ill, Behavior is calm, cooperative, appropriate for ll1 age. Pain: Complains of pain in head Pain currently is 5 out of 10 on a pain scale. Quality of pain is described as aching. EENT: Reports nasal congestion. Neuro: Reports headache. Respiratory: Reports cough that is. Historical: - Allergies: 18:46 No Known Allergies; ll1 - PMHx: 18:46 ADD/ADHD; ll1 - PSHx: 18:46 Appendectomy; ll1 - Immunization history:: Client reports having NOT received the Covid vaccine. - Social history:: Smoking status: Reported history of juuling and/or vaping. Patient/guardian denies using tobacco, the patient reports quitting approximately 2 years ago. Screenin:57 [facility] ED Fall Risk Assessment (Adult) Score/Fall Risk Level 0 - 2 = Low Risk ll1 Oriented to surroundings, Maintained a safe environment, Educated pt \T\ family on fall prevention, incl call for assistance when getting out of bed, Hourly rounding (assess needs \T\ fall precautionary measures) done. Abuse screen: Denies threats or abuse. Nutritional screening: No deficits noted. Tuberculosis screening: No symptoms or risk factors identified. Assessment: 18:57 Reassessment: No changes from previously documented assessment. Patient and/or family ll1 updated on plan of care and expected duration. Pain level reassessed. Vital Signs: 18:44 BP 124 / 82; Pulse 96; Resp 17; Temp 98.4; Pulse Ox 99% ; Weight 110.22 kg; Height 6 ll1 ft. 2 in. ; Pain 5/10; 18:44 Body Mass Index 31.20 (110.22 kg, 187.96 cm) ll1 18:44 Pain Scale: Adult ll1 ED Course: 18:41 Patient arrived in ED. mr 18:41 Toshia Hayes FNP-C is [facility]. kb 18:41 Nam Gould MD is Attending Physician. kb 18:46 Triage completed. ll1 18:46 Arm band placed on Patient placed in an exam room, on a stretcher. ll1 18:56 COVID-19/FLU A+B Sent. ll1 18:56 Strep Sent. ll1 18:57 Fernandez Amin, LEILA is Primary Nurse. ll1 Administered Medications: 18:56 Drug: MethylPREDNISolone Sodium Succinate IM 125 mg Route: IM; Site: right vastus ll1 lateralis; Medication: 18:57 VIS not applicable for this client. ll1 Outcome: 19:57 Discharge ordered by . kb Signatures: Toshia Hayes FNP-C FNP-Ckb Rivera, Mary mr Fernandez Amin, RN RN ll1
--- NOTE | 2022-08-06 19:57 | EDPHYS ---
Physician Documentation [facility] [place] [facility] Name: Pablito Randolph Age: 26 yrs Sex: Male : 1995 Arrival Date: 08/06/2022 Time: 18:41 Bed 9 Private MD: ED Physician Nam Gould HPI: 08/06 19:00 This 26 yrs old Male presents to ER via Ambulatory with complaints of Flu Symptoms. kb 19:00 The patient or guardian reports flu symptoms, myalgias. Onset: The symptoms/episode kb began/occurred 1 week(s) ago. Severity of symptoms: At their worst the symptoms were moderate, in the emergency department the symptoms are unchanged. Modifying factors: The symptoms are alleviated by nothing, the symptoms are aggravated by nothing. Associated signs and symptoms: Pertinent positives: rhinorrhea, sore throat. The patient has not experienced similar symptoms in the past. The patient has not recently seen a physician. Historical: - Allergies: 18:46 No Known Allergies; ll1 - PMHx: 18:46 ADD/ADHD; ll1 - PSHx: 18:46 Appendectomy; ll1 - Immunization history:: Client reports having NOT received the Covid vaccine. - Social history:: Smoking status: Reported history of juuling and/or vaping. Patient/guardian denies using tobacco, the patient reports quitting approximately 2 years ago. ROS: 19:00 Respiratory: Negative for shortness of breath, cough, wheezing, and pleuritic chest kb pain. 19:00 Constitutional: Positive for body aches, chills, fatigue, malaise. 19:00 ENT: Positive for sinus congestion, sore throat. 19:00 Neuro: Positive for headache. 19:00 All other systems are negative. Exam: 19:00 Constitutional: This is a well developed, well nourished patient who is awake, alert, kb and in no acute distress. Head/Face: Normocephalic, atraumatic. ENT: Moist Mucous membranes Cardiovascular: Regular rate and rhythm with a normal S1 and S2. No gallops, murmurs, or rubs. No pulse deficits. Respiratory: Respirations even and unlabored. No increased work of breathing. Talking in full sentences Abdomen/GI: Soft, non-tender. No distention Skin: Warm, dry with normal turgor. Normal color. MS/ Extremity: Pulses equal, no cyanosis. Neurovascular intact. Full, normal range of motion. Neuro: Awake and alert, GCS 15, oriented to person, place, time, and situation. Moves all extremities. Normal gait. Vital Signs: 18:44 BP 124 / 82; Pulse 96; Resp 17; Temp 98.4; Pulse Ox 99% ; Weight 110.22 kg; Height 6 ll1 ft. 2 in. ; Pain 5/10; 18:44 Body Mass Index 31.20 (110.22 kg, 187.96 cm) ll1 18:44 Pain Scale: Adult ll1 MDM: 18:41 Patient medically screened. 19:00 Data reviewed: vital signs, nurses notes. kb 19:01 Differential Diagnosis: Influenza Upper Respiratory Infection Sinusitis Other covid, kb strep. Counseling: I had a detailed discussion with the patient and/or guardian regarding: the historical points, exam findings, and any diagnostic results supporting the discharge/admit diagnosis, lab results, the need for outpatient follow up, a family practitioner, to return to the emergency department if symptoms worsen or persist or if there are any questions or concerns that arise at home. 08/06 18:46 Order name: Strep; Complete Time: 19:22 kb 08/06 18:46 Order name: COVID-19/FLU A+B; Complete Time: 19:54 kb 08/06 19:23 Order name: Throat Culture [facility] Administered Medications: 18:56 Drug: MethylPREDNISolone Sodium Succinate IM 125 mg Route: IM; Site: right vastus ll1 lateralis; Disposition Summary: 08/06/22 19:57 Discharge Ordered Location: Home kb Condition: Stable kb Diagnosis - Acute sinusitis, unspecified kb Followup: kb - With: Emergency Department - When: As needed - Reason: Worsening of condition Followup: kb - With: Private Physician - When: 2 - 3 days - Reason: Recheck today's complaints, Continuance of care, Re-evaluation by your physician Discharge Instructions: - Discharge Summary Sheet kb - Sinusitis, Adult, Fauu-er-Agpw kb Forms: - Medication Reconciliation Form kb - Thank You Letter kb - Antibiotic Education kb - Prescription Opioid Use Prescriptions: - Prednisone 20 mg Oral Tablet - take 1 tablet by ORAL route once daily for 5 days; 5 tablet; Refills: 0, kb Product Selection Permitted Signatures: Dispatcher [employer] Toshia Sprague, KETTLE SKIMMER-C KETTLE SKIMMER-Ckb Fernandez Amin, RN RN ll1
[2022-08-06 23:49] VITALS: BP 124/82; TEMP 98.4
[2022-08-06 23:50] VITALS: O2SAT 100
== END 2022-08-06 20:26 | disposition home or self-care (01) ==
LOC: ER 18:37
DX: J01.90 Acute sinusitis, unspecified (principal); J34.89 Other specified disorders of nose and nasal sinuses; J02.9 Acute pharyngitis, unspecified; F90.9 Attention-deficit hyperactivity disorder, unspecified type; R53.83 Other fatigue; R51.9 Headache, unspecified; Z20.822 Contact with and (suspected) exposure to COVID-19
CPT/HCPCS: 0240U; 87070; 87081; J2930

== ENCOUNTER 2022-08-07 23:51 | Emergency (ER) | payer SELFPAY ==
--- OUTSIDE RECORDS SUMMARY | 2022-08-07 23:54 | XMS REPORT | Continuity of Care Document ---
:1995 Author Organization [facility] t Address [address] [place] [address] Care Team Providers Name Role Phone KIMBERLY LINARES Primary Care Physician Unavailable GREGORIO HARRIS Attending Clinician Unavailable Gregorio Harris NP Attending Clinician DELANEY LAMBERT Attending Clinician Unavailable [facility] Attending Clinician Unavailable Bella Crespo Attending Clinician BELLA TERRY Attending Clinician Unavailable Kimberly Linares MD Attending Clinician Sophie [place] Attending Clinician Lucas Rojas MD Attending Clinician [place] Attending Clinician Unavailable Doctor Unassigned, [place] Attending Clinician Unavailable Marquise Palomino MD Attending [...] rs active active ity of problems problems [facility] Allergies, Adverse Reactions, Alerts Allergy Allergy Status Severity Reaction(s) Onset Inactive Treating Comm ents Source Name Type Date Date Clinician NO KNOWN Drug Active Univers ALLERGIE Class ity of S [facility] Social History Social Habit Start Date Stop Date Quantity Comments Source History SDOH University o f Alcohol Frequency [facility] edical History SDOH University o f Alcohol Std Drinks [facility] History SDWV University o f Alcohol Binge [facility] [place] Exposure to Yes University of SARS-CoV-2 (event) [facility] History of tobacco Cigarette Smoker University of use [facility] Alcohol intake 2021-05-19 2021-05-19 Current drinker Unive rsity of 00:00:00 00:00:00 of alcohol [facility] (finding) [place] Alcohol Comment 2019-08-13 2019-08-13 once a month Univers ity of 00:00:00 00:00:00 [facility] Tobacco use and 2019-02-26 2019-02-26 Never used Universit y of exposure 00:00:00 00:00:00 [facility] Cigarettes smoked 2019-02-26 2019-02-26 Univers ity of current (pack per 00:00:00 00:00:00 [facility] ) - Reported Branch Cigarette 2019-02-26 2019-02-26 University of pack-years 00:00:00 00:00:00 [facility] Sex Assigned At [birth year] Universit y of 00:00:00 00:00:00 [facility] Smoking Status Start Date Stop Date Source Current every day smoker 2019-02-26 00:00:00 Uni versity of [facility] Unknown if ever smoked Universit y of [facility] Medications Ordered Filled Start Stop Current Ordering Indication Dosage Frequency Signature Comments Components Source Medication Medication Date Date Medication? Clinician (SIG) Name Name azithromyci Yes [id number] 250mg Take 1 Univers n 4-07 tablet by ity of (ZITHROMAX 00:00: mouth [place] Z-ALPHONSE) 250 00 daily. Medical mg tablet Take 500 Branch mg day 1, then 250 mg days 2 to 5. azithromyci 2019- Yes [id number] 250mg Take 1 Univers n 4-07 tablet [...] Brand PA-C / Jay Dsouza MD HALEY# [id number] DPS# [id number] Lic.# [id number] NPI# [id number] benzonatate 2017-0 Yes 200mg Take 1 Uni vers 200 mg 1-09 capsule by ity of capsule 00:00: mouth 3 00 (three) Medical times [place] daily as needed for Cough. azithromyci 2017-0 Yes 250mg Take 1 Uni vers n 250 mg 1-09 tablet by ity of tablet 00:00: mouth [place] 00 daily. Medical Branch No known No [facility] No [facility] No [facility] No known No [facility] No known No [facility] No known No Univers medications [facility] No known No Univers medications [facility] Vital Signs Vital Name Observation Time Observation Value Comments Source Systolic blood 2021-05-19 17:29:00 139 mm[Hg] Univer sity of [facility] Diastolic blood 2021-05-19 17:29:00 74 mm[Hg] [facility] rate 2021-05-19 17:29:00 85 /min [facility] Body temperature 2021-05-19 17:29:00 36.56 [facility] Respiratory rate 2021-05-19 17:29:00 18 /min [facility] Body weight 2021-05-19 17:29:00 108.863 kg [facility] BMI 2021-05-19 17:29:00 30.81 kg/m2 [facility] Oxygen saturation in 2021-05-19 17:29:00 99 /min [facility] Arterial blood by [facility] Pulse oximetry Branch Systolic blood 2019-08-26 19:03:00 132 mm[Hg] Univer sity [facility] Diastolic blood 2019-08-26 19:03:00 85 mm[Hg] [facility] rate 2019-08-26 19:03:00 103 /min [facility] Body temperature 2019-08-26 19:03:00 36.72 [facility] Respiratory rate 2019-08-26 19:03:00 18 /min [facility] Body height 2019-08-26 19:03:00 188 cm [facility] Body weight 2019-08-26 19:03:00 108.863 kg [facility]i ty [facility] [place] [facility] BMI 2019-08-26 19:03:00 30.81 kg/m2 [facility] [place] [facility] Oxygen saturation in 2019-08-26 19:03:00 100 /min University of Arterial blood by [facility] jose elias Pulse oximetry Branch [...] 100 /min University of Arterial blood by [facility] Pulse oximetry Branch Systolic blood 2019-08-13 15:49:00 [...] 98 /min University of Arterial blood by [facility] Pulse oximetry Branch Systolic blood 2019-08-13 15:49:00 122 mm[Hg] Univer sity of pressure [place] [facility] Diastolic blood 2019-08-13 15:49:00 79 mm[Hg] Unive rsity of pressure [facility] Heart rate 2019-08-13 15:49:00 72 /min [facility] Body temperature 2019-08-13 15:49:00 36.83 [facility] Respiratory rate 2019-08-13 15:49:00 18 /min [facility] Body weight 2019-08-13 15:49:00 110.224 kg [facility] BMI 2019-08-13 15:49:00 31.20 kg/m2 [facility] Oxygen saturation in 2019-08-13 15:49:00 98 /min University of Arterial blood by [facility] Pulse oximetry Branch Systolic blood 2018-12-19 17:58:00 115 mm[Hg] Univer sity of pressure [facility] Diastolic blood 2018-12-19 17:58:00 92 mm[Hg] Unive rsity of [facility] Heart rate 2018-12-19 17:58:00 68 /min [facility] Respiratory rate 2018-12-19 17:58:00 18 /min [facility] Oxygen saturation in 2018-12-19 17:58:00 98 /min [place] of Arterial blood by [facility] Pulse oximetry Branch Body temperature 2018-12-19 16:45:00 36.67 [facility] Body height 2018-12-19 16:45:00 188 cm [facility] Body weight 2018-12-19 16:45:00 109.77 kg [facility] BMI 2018-12-19 16:45:00 31.07 kg/m2 [facility] Procedures Procedure Date / Time Performed Performing Clinician Sourc e RAPID INFLUENZA A/B 2021-05-19 17:36:00 Gregorio Harris [facility] CONSENT/REFUSAL FOR 2021-05-19 17:23:18 Doctor Unassigned, No Un [facility] DIAGNOSIS AND Name Medical Branch TREATMENT POCT GRP A STREP 2019-08-26 19:28:00 Rossy Ross [facility] (MOLECULAR) [facility] ASSIGNMENT OF BENEFITS 2019-08-13 05:01:00 Doctor Unassigned, No [facility] Medical Branch XR KUB 2018-12-19 17:31:13 Marquise Palomino [place] o f [facility] Encounters Start End Encounter Admission Attending Care Care Encounter Source Date/Time Date/Time Type Type Clinicians Facility Department ID 2021-05-19 2021-05-19 [id number] Univers 11:36:00 12:59:00 GREGORIO martinez [facility] 2021-05-19 2021-05-19 Emergency [facility] [id number] Univers 11:36:00 12:59:00 Gregorio TURNER [id number] ity of [place] [id number] [facility] [phone] [place] [address]164 [place] 2020-08-21 2020-08-21 [facility] [id number] Univers 15:00:00 15:00:00 DELANEY ity [facility] 2019-08-26 2019-08-26 Urgent Pob1, Acute [facility] [id number] 13:54:03 14:14:03 Care Care [facility] [id number] [place] [id number] Professio [phone] [place] [address] [address] 2019-08-26 2019-08-26 Urgent Pob1, Acute Care [facility] 1. [id number] Univers 13:54:03 14:14:03 [facility] [id number] ity of [place] [id number] [facility] Professio [phone] In dical [address] Office Building One 2019-08-26 2019-08-26 Outpatient [facility] [id number] Univers 13:40:00 13:40:00 BELLA martinez [facility] 2019-08-26 2019-08-26 Telephone Pob1, Acute [facility] [id number] 00:00:00 00:00:00 Care [facility] Health [id number] [place] [id number] Professio [phone] [address] 2019-08-26 2019-08-26 Telephone Pob1, Acute [facility] [id number] Univers 00:00:00 00:00:00 [facility] [id number] ity of [place] [id number] [place] Professio [phone] [address] 2019-08-21 2019-08-21 [facility] [id number] 00:00:00 00:00:00 Peter [place] [id number] [place] [id number] Professio [phone] [address] 2019-08-21 2019-08-21 Telephone [facility] [id number] Univers 00:00:00 00:00:00 Peter [place] [id number] i ty [id number] [place] [phone] [address] 2019-08-15 2019-08-15 Letter Phu [facility] [id number] 00:00:00 00:00:00 (Out) Sophie Turner [id number] [place] [id number] Professio [phone] [address] 2019-08-15 2019-08-15 [facility] [id number] Univers 00:00:00 00:00:00 (Out) Sophie [place] [id number] ity of [id number] [place] [phone] [address] 2019-08-13 2019-08-13 Office Pob1, Acute Care Clinic [facility] 1. [id number] [facility] 10:22:52 11:31:16 Visit [facility] [id number] ity of [place] [id number] [place] Professio [phone] [facility] 044 [place] Office Building One 2019-08-13 2019-08-13 Office Pob1, Acute [facility] 1.2.840.114 [id number] 10:22:52 11:31:16 Visit Care [facility] [id number] [place] [id number] Profmarisela [phone] nal [facility] Office Building One 2019-08-13 2019-08-13 Outpatient R PHU [facility] [id number] Univers 10:40:00 10:40:00 SOPHIE ity of [facility] 2019-08-13 2019-08-13 Orders Doctor SANDRA 1.2.840.114 [id number] Univers 00:00:00 00:00:00 Only Unassigned, MARÍA [id number] ity of [place] [facility] [id number] [place] [phone] [address] 2019-08-13 2019-08-13 Orders Doctor SANDRA [id number] 00:00:00 00:00:00 Only Unassigned, MARÍA [id number] [place] [facility] [id number] [id number] 2018-12-19 2018-12-19 Emergency [facility] [id number] [facility] 11:41:09 13:35:00 Marquise [place] [id number] i ty [facility] [id number] [facility] [phone] [address] Results Test Description Test Time Test Comments Results Result Comments Source POCT GRP A STREP (MOLECULAR) 2019-08-26 19:28:00 Test Item Value Reference Range Interpretation Comme nts POCT GP A STREP (test code = 02387-4) negative Negative - Negat curtis Lab Interpretation (test code = 30825-8) Normal [facility], TXXR [id number] 17:39:31HISTORY: Abdominal pain. FINDINGS: 2 abdominal images showed unremarkable intestinal gas pattern. Noorganomegaly. Calcifications in the left upper abdomen likely phlebolithswithin the spleen. Calcifications are also seen in the right upper abdomen,uncertain location. No definite kidney stone or gallstone. No aggressivebone lesions. CONCLUSIONS: No acute findings. [facility], Radiant Results Inft User - 12/19/2018 12:39 PM CDTHISTORY: Abdominal pain.FINDINGS: 2 abdominal images showed unremarkable intestinal gas pattern. Noorganomegaly. Calcifications in the left upper abdomen likely phlebolithswithin thespleen. Calcifications are also seen in the right upper abdomen,uncertain location. No definite kidney stone or gallstone. No aggressivebone lesions.CONCLUSIONS: No acute findings.[facility] [place]
--- NOTE | 2022-08-08 01:01 | ER ---
Nurse's Notes [facility] Name: Pablito Randolph Age: 26 yrs Sex: Male : 1995 Arrival Date: 08/07/2022 Time: 23:54 Bed 3 Private MD: Diagnosis: Otitis media, unspecified, left ear;Cough Presentation: 08/08 00:42 Chief complaint: Patient states: his left ear hurts since earlier today. Coronavirus bb screen: At this time, the client does not indicate any symptoms associated with coronavirus-19. Ebola Screen: No symptoms or risks identified at this time. Initial Sepsis Screen: Does the patient meet any 2 criteria? No. Patient's initial sepsis screen is negative. Does the patient have a suspected source of infection? No. Patient's initial sepsis screen is negative. Risk Assessment: Do you want to hurt yourself or someone else? Patient reports no desire to harm self or others. Onset of symptoms was August 07, 2022. 00:42 Method Of Arrival: Ambulatory bb 00:42 Acuity: CHUY 5 bb Triage Assessment: 00:43 General: Appears in no apparent distress. Behavior is calm, cooperative. Pain: bb Complains of pain in left ear. EENT: Reports pain in left ear. Neuro: Level of Consciousness is awake, alert, obeys commands, Oriented to person, place, time, situation. Cardiovascular: No deficits noted. Respiratory: Respiratory effort is even, unlabored. Derm: Skin is pink, warm \T\ dry. Musculoskeletal: Circulation, motion, and sensation intact. Historical: - Allergies: 00:43 No Known Allergies; bb - Immunization history:: Client reports having NOT received the Covid vaccine. - Social history:: Smoking status: Reported history of juuling and/or vaping. Screenin:12 [facility] ED Fall Risk Assessment (Adult) Score/Fall Risk Level 0 - 2 = Low Risk. Abuse as6 screen: Denies threats or abuse. Denies injuries from another. Nutritional screening: No deficits noted. Tuberculosis screening: No symptoms or risk factors identified. Vital Signs: 00:42 BP 135 / 84; Pulse 89; Resp 16 S; Temp 98.1(O); Pulse Ox 98% on R/A; Weight 109.77 kg bb (R); Height 6 ft. 2 in. (R); Pain 8/10; 00:42 Body Mass Index 31.07 (109.77 kg, 187.96 cm) bb 00:42 Pain Scale: Adult bb ED Course: 08/07 23:54 Patient arrived in ED. jaRenee 08/08 00:08 Simon Erazo PA is PHCP. cp 00:08 Lizandro Brown MD is Attending Physician. cp 00:43 Triage completed. bb 00:43 Arm band placed on. bb 01:12 Bed in low position. Call light in reach. as6 01:12 No provider procedures requiring assistance completed. Patient did not have IV access as6 during this emergency room visit. Administered Medications: 01:12 Drug: Amoxicillin-Clavulanate PO 875 mg Route: PO; as6 01:13 Follow up: Response: No adverse reaction as6 01:12 Drug: Acetaminophen-Codeine PO (300 mg-30 mg) 2 tabs Route: PO; as6 01:13 Follow up: Response: No adverse reaction as6 01:12 Drug: Ibuprofen PO 800 mg Route: PO; as6 01:13 Follow up: Response: No adverse reaction as6 Medication: 01:13 VIS not applicable for this client. as6 Outcome: 01:00 Discharge ordered by . cp 01:12 Discharged to home ambulatory. as6 01:12 Condition: stable 01:12 Discharge instructions given to patient, Instructed on discharge instructions, follow up and referral plans. medication usage, Demonstrated understanding of instructions, follow-up care, medications, Prescriptions given X 3. 01:13 Patient left the ED. as6 Signatures: Helen Lai RN RN Simon Wesley PA PA cp Alexander, Jessica ja2 Slawson, Ashby, RN RN as6
--- NOTE | 2022-08-08 01:01 | EDPHYS ---
Physician Documentation [facility] Name: Pablito Randolph Age: 26 yrs Sex: Male : 1995 Arrival Date: 08/07/2022 Time: 23:54 Bed 3 Private MD: ED Physician Lizandro Brown HPI: 08/08 00:55 This 26 yrs old Male presents to ER via Ambulatory with complaints of Ear Pain. cp 00:55 The patient presents with pain, that is acute. The complaints affect the left ear. cp Onset: The symptoms/episode began/occurred today. Associated signs and symptoms: Pertinent positives: left upper jaw and left facial pain, cough, sinus trouble, Pertinent negatives: fever, shortness of breath, sore throat, vomiting. Severity of symptoms: in the emergency department the symptoms are unchanged despite home interventions. Historical: - Allergies: 00:43 No Known Allergies; bb - Immunization history:: Client reports having NOT received the Covid vaccine. - Social history:: Smoking status: Reported history of juuling and/or vaping. ROS: 00:57 Eyes: Negative for injury, pain, redness, and discharge. cp 00:57 Constitutional: Negative for body aches, chills, fever, poor PO intake. 00:57 ENT: Positive for ear pain, sinus congestion, sinus pain, Negative for drainage from ear(s), sore throat, difficulty swallowing, difficulty handling secretions. 00:57 Respiratory: Positive for cough, with no reported sputum, Negative for shortness of breath, wheezing. 00:57 Skin: Negative for rash. Exam: 00:58 Constitutional: The patient appears in no acute distress, alert, awake, non-toxic, well cp developed, well nourished, uncomfortable. 00:58 Head/face: Sinus tenderness, that is moderate, is located over the left maxillary sinus. 00:58 Eyes: Periorbital structures: appear normal, Extraocular movements: intact throughout, Conjunctiva: normal, no exudate, no injection, Sclera: no appreciated abnormality, Lids and lashes: appear normal, bilaterally. 00:58 ENT: External ear(s): are unremarkable, Ear canal(s): are normal, clear, TM's: bulging, is not appreciated, bilaterally, erythema, that is moderate, on the left, Nose: nasal drainage, that is minimal, Mouth: Lips: moist, Oral mucosa: pink and intact, moist, Posterior pharynx: Airway: no evidence of obstruction, patent, Tonsils: no enlargement, no exudate, swelling, is not appreciated, erythema, is not appreciated, exudate, is not appreciated, Dental exam: pain, is not appreciated. 00:58 Neck: ROM/movement: is normal, is supple, without pain, no range of motions limitations, no meningismus, no nuchal rigidity, Lymph nodes: no appreciated lymphadenopathy. Vital Signs: 00:42 BP 135 / 84; Pulse 89; Resp 16 S; Temp 98.1(O); Pulse Ox 98% on R/A; Weight 109.77 kg bb (R); Height 6 ft. 2 in. (R); Pain 8/10; 00:42 Body Mass Index 31.07 (109.77 kg, 187.96 cm) bb 00:42 Pain Scale: Adult bb MDM: 00:55 Differential diagnosis: otitis media, otitis externa, ruptured TM, foreign body, acute cp otalgia, cerumen impaction, barotrauma . 01:00 Patient medically screened. cp 01:00 Data reviewed: vital signs, nurses notes. cp 01:00 I considered the following discharge prescriptions or medication management in the cp emergency department Medications were administered in the Emergency Department. See MAR. Counseling: I had a detailed discussion with the patient and/or guardian regarding: the historical points, exam findings, and any diagnostic results supporting the discharge/admit diagnosis, to return to the emergency department if symptoms worsen or persist or if there are any questions or concerns that arise at home. Response to treatment: the patient's symptoms have markedly improved after treatment, and as a result, I will discharge patient. Administered Medications: 01:12 Drug: Amoxicillin-Clavulanate PO 875 mg Route: PO; as6 01:13 Follow up: Response: No adverse reaction as6 01:12 Drug: Acetaminophen-Codeine PO (300 mg-30 mg) 2 tabs Route: PO; as6 01:13 Follow up: Response: No adverse reaction as6 01:12 Drug: Ibuprofen PO 800 mg Route: PO; as6 01:13 Follow up: Response: No adverse reaction as6 Disposition Summary: 08/08/22 01:00 Discharge Ordered Location: Home cp Problem: new cp Symptoms: have improved cp Condition: Stable cp Diagnosis - Otitis media, unspecified, left ear cp - Cough cp Followup: cp - With: Private Physician - When: 2 - 3 days - Reason: Recheck today's complaints Discharge Instructions: - Discharge Summary Sheet cp - Otitis Media, Adult cp - Cough, Adult cp Forms: - Medication Reconciliation Form cp - Thank You Letter cp - Antibiotic Education cp - Prescription Opioid Use cp Prescriptions: - Bromfed DM 2-30-10 mg/5 mL Oral syrup - administer 10 milliliter by ORAL route every 6 hours as needed for allergy cp symptoms; 180 milliliter; Refills: 0, Product Selection Permitted - Augmentin 875-125 mg Oral Tablet - take 1 tablet by ORAL route every 12 hours for 10 days; 20 tablet; Refills: 0, cp Product Selection Permitted - Ibuprofen 800 mg Oral Tablet - take 1 tablet by ORAL route every 8 hours As needed take with food; 30 tablet; cp Refills: 0, Product Selection Permitted Signatures: Helen Lai RN RN bb Simon Erazo PA PA cp Adal Tillman RN RN as6
[2022-08-08] MEDS ORDERED: CODEINE 30MG/APAP 300MG TAB ONE (01:13)
[2022-08-08] MEDS ORDERED: AMOX/K CLAV 875 MG TAB ONE (01:13)
[2022-08-08] MEDS ORDERED: IBUPROFEN 400 MG TAB ONE (01:14)
[2022-08-08 09:48] VITALS: BP 135/84; TEMP 98.1; O2SAT 98
== END 2022-08-08 01:13 | disposition home or self-care (01) ==
LOC: ER 23:51
DX: H66.92 Otitis media, unspecified, left ear (principal); R05.9 Cough, unspecified
CPT/HCPCS: 99283

== ENCOUNTER 2022-09-25 23:25 | Emergency (ER) | payer SELFPAY ==
--- OUTSIDE RECORDS SUMMARY | 2022-09-25 23:28 | XMS REPORT | Continuity of Care Document ---
:1995 Author Organization [facility] t Address [address] [facility] [address] [place] [address] Care Team Providers Name Role Phone KIMBERLY LINARES Primary Care Physician Unavailable GREGORIO HARRIS Attending Clinician Unavailable Kimberly [facility] PROFESSIONALGregorio Attending Clinician DELANEY LAMBERT Attending Clinician Unavailable [facility] Attending Clinician Unavailable Bella Crespo Attending Clinician BELLA TERRY Attending Clinician Unavailable Kimberly Linares MD Attending Clinician Sophie [place] Attending Clinician Lucas Rojas MD Attending Clinician [place] Attending Clinician Unavailable Doctor Unassigned, [place] Attending Clinician Unavailable Marquise Palomino MD Attending [...] rs active active ity of problems problems [facility] Allergies, Adverse Reactions, Alerts Allergy Allergy Status Severity Reaction(s) Onset Inactive Treating Comm ents Source Name Type Date Date Clinician NO KNOWN Drug Active Univers ALLERGIE Class ity of S [facility] Social History Social Habit Start Date Stop Date Quantity Comments Source History SDOH University o f Alcohol Frequency [facility] edical History SDOH University o f Alcohol Std Drinks [facility] History SDTX University o f Alcohol Binge [facility] al [place] Exposure to Yes University of SARS-CoV-2 (event) [facility] History of tobacco Cigarette Smoker University of use [facility] Alcohol intake 2021-05-19 2021-05-19 Current drinker Unive rsity of 00:00:00 00:00:00 of alcohol [facility] (finding) [place] Alcohol Comment 2019-08-13 2019-08-13 once a month Univers ity of 00:00:00 00:00:00 [facility] Tobacco use and 2019-02-26 2019-02-26 Never used Universit y of exposure 00:00:00 00:00:00 [facility] Cigarettes smoked 2019-02-26 2019-02-26 Univers ity of current (pack per 00:00:00 00:00:00 [facility] ) - Reported Branch Cigarette 2019-02-26 2019-02-26 University of pack-years 00:00:00 00:00:00 [facility] Sex Ass[birth year] At [birth year] Universit y of 00:00:00 00:00:00 [facility] Smoking Status Start Date Stop Date Source Current every day smoker 2019-02-26 00:00:00 Uni versity of [facility] Unknown if ever smoked Universit y of [facility] Medications Ordered Filled Start Stop Current Ordering Indication Dosage Frequency Signature Comments Components Source Medication Medication Date Date Medication? Clinician (SIG) Name Name azithromyci Yes [id number] 250mg Take 1 Univers n 4-07 tablet by ity of (ZITHROMAX 00:00: mouth [place] Z-ALPHONSE) 250 00 daily. Medical mg tablet Take 500 Branch mg day 1, then 250 mg days 2 to 5. azithromyci 2019- Yes [id number] 250mg Take 1 Univers n 4-07 tablet [...] Brand PA-C / Jay Dsouza MD HALEY# [id number] DPS# [id number] x Lic.# [id number] NPI# [id number] benzonatate 2017-0 Yes 200mg Take 1 Uni vers 200 mg 1-09 capsule by ity of capsule 00:00: mouth 3 00 (three) Medical times [place] daily as needed for Cough. azithromyci 2017-0 Yes 250mg Take 1 Uni vers n 250 mg 1-09 tablet by ity of tablet 00:00: mouth [place] 00 daily. Medical Branch No known No [facility] No [facility] No known No [facility] No known No [facility] No known No Univers medications [facility] No known No Univers medications [facility] Vital Signs Vital Name Observation Time Observation Value Comments Source Systolic blood 2021-05-19 17:29:00 139 mm[Hg] Univer sity of [facility] Diastolic blood 2021-05-19 17:29:00 74 mm[Hg] [facility] Heart rate 2021-05-19 17:29:00 85 /min [facility] Body temperature 2021-05-19 17:29:00 36.56 Sri [facility] Respiratory rate 2021-05-19 17:29:00 18 /min [facility] Body weight 2021-05-19 17:29:00 108.863 kg [facility] BMI 2021-05-19 17:29:00 30.81 kg/m2 [facility] Oxygen saturation in 2021-05-19 17:29:00 99 /min [facility] Arterial blood by [facility] Pulse oximetry Branch Systolic blood 2019-08-26 19:03:00 132 mm[Hg] Univer sity [facility] Diastolic blood 2019-08-26 19:03:00 85 mm[Hg] [facility] rate 2019-08-26 19:03:00 103 /min [facility] Body temperature 2019-08-26 19:03:00 36.72 [facility] Respiratory rate 2019-08-26 19:03:00 18 /min [facility] Body height 2019-08-26 19:03:00 188 cm [facility] Body weight 2019-08-26 19:03:00 108.863 kg Universi ty of [place] [facility] BMI 2019-08-26 19:03:00 30.81 kg/m2 Universi ty of [facility] Oxygen saturation in 2019-08-26 19:03:00 100 /min University of Arterial blood by [facility] jose elias Pulse oximetry Branch Systolic blood 2019-08-26 19:03:00 132 mm[Hg] Univer sity of pressure [place] [facility] Diastolic blood 2019-08-26 19:03:00 85 mm[Hg] Unive rsity of pressure [facility] Heart rate 2019-08-26 19:03:00 103 /min Universi ty [facility] Body temperature 2019-08-26 19:03:00 36.72 Sri Univ ersity of [place] [facility] Respiratory rate 2019-08-26 19:03:00 18 /min Univ ersity of [facility] Body height 2019-08-26 19:03:00 188 cm [facility]i ty [facility] [place] [facility] Body weight 2019-08-26 19:03:00 108.863 kg Universi ty [facility] [place] [facility] BMI 2019-08-26 19:03:00 30.81 kg/m2 Universi ty [facility] [place] [facility] Oxygen saturation in 2019-08-26 19:03:00 100 /min University of Arterial blood by [facility] Pulse oximetry Branch Systolic blood 2019-08-13 15:49:00 122 mm[Hg] Univer sity of pressure [place] [facility] Diastolic blood 2019-08-13 15:49:00 79 mm[Hg] Unive rsity of pressure [place] [facility] Heart rate 2019-08-13 15:49:00 72 /min Universi ty [facility] [place] [facility] Body temperature 2019-08-13 15:49:00 36.83 Sri Univ ersity [facility] [place] [facility] Respiratory rate 2019-08-13 15:49:00 18 /min Univ ersity [facility] [place] [facility] Body weight 2019-08-13 15:49:00 110.224 kg [facility]i ty [facility] [place] [facility] BMI 2019-08-13 15:49:00 31.20 kg/m2 [facility]i ty [facility] [place] [facility] Oxygen saturation in 2019-08-13 15:49:00 98 /min University of Arterial blood by [facility] Pulse oximetry Branch Systolic blood 2019-08-13 15:49:00 122 mm[Hg] Univer sity of pressure [place] [facility] Diastolic blood 2019-08-13 15:49:00 79 mm[Hg] Unive rsity of pressure [facility] Heart rate 2019-08-13 15:49:00 72 /min [facility] Body temperature 2019-08-13 15:49:00 36.83 Sri [facility] Respiratory rate 2019-08-13 15:49:00 18 /min [facility] Body weight 2019-08-13 15:49:00 110.224 kg [facility] BMI 2019-08-13 15:49:00 31.20 kg/m2 [facility] Oxygen saturation in 2019-08-13 15:49:00 98 /min University of Arterial blood by [facility] Pulse oximetry Branch Systolic blood 2018-12-19 17:58:00 115 mm[Hg] Univer sity of pressure [facility] Diastolic blood 2018-12-19 17:58:00 92 mm[Hg] Unive rsity of [facility] Heart rate 2018-12-19 17:58:00 68 /min [facility] Respiratory rate 2018-12-19 17:58:00 18 /min [facility] Oxygen saturation in 2018-12-19 17:58:00 98 /min Goodman of Arterial blood by [facility] Pulse oximetry Branch Body temperature 2018-12-19 16:45:00 36.67 Sri [facility] Body height 2018-12-19 16:45:00 188 cm [facility] Body weight 2018-12-19 16:45:00 109.77 kg [facility] BMI 2018-12-19 16:45:00 31.07 kg/m2 [facility] Procedures Procedure Date / Time Performed Performing Clinician Sourc e RAPID INFLUENZA A/B 2021-05-19 17:36:00 Gregorio [facility] CONSENT/REFUSAL FOR 2021-05-19 17:23:18 Doctor Unassigned, No Un [facility] DIAGNOSIS AND Name Medical Branch TREATMENT POCT GRP A STREP 2019-08-26 19:28:00 Rossy Ross [facility] (MOLECULAR) [facility] ASSIGNMENT OF BENEFITS 2019-08-13 05:01:00 Doctor Unassigned, No [facility] Medical Branch XR KUB 2018-12-19 17:31:13 Marquise Palomino [place] o f [facility] Encounters Start End Encounter Admission Attending Care Care Encounter Source Date/Time Date/Time Type Type Clinicians Facility Department ID 2021-05-19 2021-05-19 [facility] [id number] Univers 11:36:00 12:59:00 GREGORIO martinez [facility] 2021-05-19 2021-05-19 Emergency [facility] [id number] Univers 11:36:00 12:59:00 Gregorio TURNER [id number] ity of [place] [id number] [facility] [phone] [place] [address] [place] 2020-08-21 2020-08-21 Outpatient [facility] [id number] Univers 15:00:00 15:00:00 DELANEY ity [facility] 2019-08-26 2019-08-26 Urgent Pob1, Acute [facility] [id number] 13:54:03 14:14:03 Care Care [facility] [id number] [place] [id number] Professio [phone] [place] [address] [address] 2019-08-26 2019-08-26 Urgent Pob1, Acute Care [facility] 1. [id number] Univers 13:54:03 14:14:03 [facility] [id number] ity of [place] [id number] [facility] Professio [phone] Nh dical [address] Office [address] 2019-08-26 2019-08-26 Outpatient R [facility] [id number] Univers 13:40:00 13:40:00 BELLA martinez [facility] 2019-08-26 2019-08-26 Telephone Pob1, Acute [facility] [id number] 00:00:00 00:00:00 Care [facility] [id number] [place] [id number] Professio [phone] [address] 2019-08-26 2019-08-26 Telephone Pob1, Acute [facility] [id number] Univers 00:00:00 00:00:00 [facility] [id number] ity of [place] [id number] [place] as Professio [phone] [address] 2019-08-21 2019-08-21 [facility] [id number] 00:00:00 00:00:00 Peter [place] [id number] [place] [id number] Professio [phone] [address] 2019-08-21 2019-08-21 Telephone [facility] [id number] Univers 00:00:00 00:00:00 Peter [place] [id number] i ty of [place] [id number] [phone] [address] 2019-08-15 2019-08-15 Letter Phu [facility] [id number] 00:00:00 00:00:00 (Out) Sophie Turner [id number] [place] [id number] Professio [phone] [address] 2019-08-15 2019-08-15 [facility] [id number] Univers 00:00:00 00:00:00 (Out) Sophie [place] [id number] ity of [id number] [phone] [address] 2019-08-13 2019-08-13 Office Pob1, Acute Care Clinic [facility] 1. [id number] [facility] 10:22:52 11:31:16 Visit Bob [facility] [id number] ity of [place] [id number] [place] Professio [phone] [facility] 044 [place] Office [address] One 2019-08-13 2019-08-13 Office Pob1, Acute [facility] [id number] 10:22:52 11:31:16 Visit Care [facility] [id number] [place] [id number] Profmarisela [phone] nal [facility] Office [address] 2019-08-13 2019-08-13 Outpatient R [facility] [id number] Univers 10:40:00 10:40:00 SOPHIE ity of [facility] 2019-08-13 2019-08-13 Orders Doctor SANDRA [id number] Univers 00:00:00 00:00:00 Only Unassigned, MARÍA [id number] ity of [place] [facility] [id number] [place] [phone] [address] 2019-08-13 2019-08-13 Orders Doctor SANDRA [id number] 00:00:00 00:00:00 Only Unassigned, MARÍA [id number] [place] [facility] [id number] [id number] 2018-12-19 2018-12-19 Emergency [facility] [id number] [facility] 11:41:09 13:35:00 Marquise Turner [id number] i ty [facility] [id number] [facility] [phone] [address] Results Test Description Test Time Test Comments Results Result Comments Source POCT GRP A STREP (MOLECULAR) 2019-08-26 19:28:00 Test Item Value Reference Range Interpretation Comme nts POCT GP A STREP (test code = 84543-5) negative Negative - Negat curtis Lab Interpretation (test code = 19314-2) [id number] 17:39:31HISTORY: Abdominal pain. FINDINGS: 2 abdominal images showed unremarkable intestinal gas pattern. Noorganomegaly. Calcifications in the left upper abdomen likely phlebolithswithin the spleen. Calcifications are also seen in the right upper abdomen,uncertain location. No definite kidney stone or gallstone. No aggressivebone lesions. CONCLUSIONS: No acute findings. [facility] Results Inft User - 12/19/2018 12:39 PM CDTHISTORY: Abdominal pain.FINDINGS: 2 abdominal images showed unremarkable intestinal gas pattern. Noorganomegaly. Calcifications in the left upper abdomen likely phlebolithswithin thespleen. Calcifications are also seen in the right upper abdomen,uncertain location. No definite kidney stone or gallstone. No aggressivebone lesions.CONCLUSIONS: No acute findings.[facility]
--- NOTE | 2022-09-25 23:41 | ER ---
Nurse's Notes [facility] Name: Pablito Randolph Age: 26 yrs Sex: Male : 1995 Arrival Date: 09/25/2022 Time: 23:25 Bed 8 Private MD: Diagnosis: Abrasion of scalp Presentation: 09/25 23:37 Chief complaint: Patient states: i hit the top of my head on the flat part of a nail in lg3 my wall. i want to make sure it doesn't need stitches. Coronavirus screen: Client denies travel out of the [place] in the last 14 days. At this time, the client does not indicate any symptoms associated with coronavirus-19. Ebola Screen: No symptoms or risks identified at this time. Mechanism of Injury: resulted from impacting a hard surface, hitting metal surface. Initial Sepsis Screen: Does the patient meet any 2 criteria? No. Patient's initial sepsis screen is negative. Does the patient have a suspected source of infection? No. Patient's initial sepsis screen is negative. Risk Assessment: Do you want to hurt yourself or someone else? Patient reports no desire to harm self or others. Onset of symptoms was September 25, 2022. 23:37 Method Of Arrival: Ambulatory lg3 23:37 Acuity: CHUY 5 lg3 Triage Assessment: 23:39 General: Appears in no apparent distress. comfortable, Behavior is calm, cooperative. lg3 Pain: Complains of pain in head. EENT: No deficits noted. No signs and/or symptoms were reported regarding the EENT system. Neuro: No deficits noted. Ochoa Agitation-Sedation Scale (RASS): 0 - Alert and Calm Level of Consciousness is awake, alert, obeys commands, Oriented to person, place, time, situation, Reports headache. Cardiovascular: No deficits noted. Denies chest pain, shortness of breath, Capillary refill < 3 seconds Clubbing of nail beds is absent JVD is absent Patient's skin is warm and dry. Respiratory: No deficits noted. Airway is patent Trachea midline Respiratory effort is even, unlabored, Respiratory pattern is regular, symmetrical. GI: No deficits noted. No signs and/or symptoms were reported involving the gastrointestinal system. : No deficits noted. No signs and/or symptoms were reported regarding the genitourinary system. Derm: Wound noted right parietal area. Musculoskeletal: No deficits noted. No signs and/or symptoms reported regarding the musculoskeletal system. Circulation, motion, and sensation intact. Range of motion: intact in all extremities. Historical: - Allergies: 23:39 No Known Allergies; lg3 - Home Meds: 23:39 None [Active]; lg3 - PMHx: 23:39 ADD/ADHD; lg3 - PSHx: 23:39 Appendectomy; lg3 - Immunization history:: Adult Immunizations up to date, Client reports having NOT received the Covid vaccine. Last tetanus immunization: unknown. - Social history:: Patient/guardian denies using alcohol, street drugs, IV drugs, caffeine, over the counter diet medications, tobacco products, Smoking status: Reported history of juuling and/or vaping. Patient uses alcohol, occasionally. - Family history:: not pertinent. Screenin:41 [facility] ED Fall Risk Assessment (Adult) History of falling in the last 3 months, lg3 including since admission No falls in past 3 months (0 pts). Abuse screen: Denies threats or abuse. Denies injuries from another. Nutritional screening: No deficits noted. Tuberculosis screening: No symptoms or risk factors identified. Assessment: 23:41 General: see triage assessment . lg3 0509 00:08 Reassessment: Patient appears in no apparent distress at this time. No changes from lg3 previously documented assessment. Patient and/or family updated on plan of care and expected duration. Pain level reassessed. Patient is alert, oriented x 3, equal unlabored respirations, skin warm/dry/pink. Vital Signs: 05 23:37 BP 132 / 77; Pulse 68; Resp 17 S; Temp 97.9(O); Pulse Ox 99% on R/A; Weight 110.22 kg lg3 (R); Height 6 ft. 2 in. (R); Pain 3/10; 23:37 Body Mass Index 31.20 (110.22 kg, 187.96 cm) lg3 23:37 Pain Scale: Adult lg3 Shevlin Coma Score: 23:37 Eye Response: spontaneous(4). Motor Response: obeys commands(6). Verbal Response: lg3 oriented(5). Total: 15. 23:37 Eye Response: spontaneous(4). Motor Response: obeys commands(6). Verbal Response: sp4 oriented(5). Total: 15. ED Course: 23:31 Patient arrived in ED. ag3 23:34 Ramy Lundberg MD is Attending Physician. sp4 23:37 Ilene Naidu RN is Primary Nurse. lg3 23:39 Triage completed. lg3 23:39 Arm band placed on right wrist. lg3 23:41 Patient has correct armband on for positive identification. Bed in low position. Call lg3 light in reach. Side rails up X 1. Client placed on continuous cardiac and pulse oximetry monitoring. NIBP monitoring applied. Door closed. Noise minimized. Warm blanket given. 05 00:09 No provider procedures requiring assistance completed. Patient did not have IV access lg3 during this emergency room visit. Wound care: to abrasion, located on right parietal area was cleaned with soap and water, dressed with Neosporin, Patient tolerated well. 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 Exp: lg3 10/22/2023. Lot #: [id number]. } Route: IM; Site: right deltoid; 00:08 Follow up: Response: (VIS) Vaccine information sheet provided today. Questions and/or lg3 concerns addressed. VIS edition date: Dec 24, 2020.; No adverse reaction Medication: 00:09 Vaccine Information Statement (VIS) provided today. Questions and/or concerns lg3 addressed. VIS edition date: December 24, 2020. Outcome: 09/25 23:41 Discharge ordered by . sp4 09/26 00:09 Discharged to home ambulatory. lg3 Condition: stable Discharge instructions given to patient, Instructed on discharge instructions, follow up and referral plans. Demonstrated understanding of instructions, follow-up care. 00:10 Patient left the ED. lg3 Signatures: Ca Escalera ag3 Ilene Naidu, RN RN lg3 Ramy Lundberg MD MD sp4 Corrections: (The following items were deleted from the chart) 09/25 23:41 23:41 Abuse screen: lg3 lg3
--- NOTE | 2022-09-25 23:41 | EDPHYS ---
Physician Documentation [facility] Name: Pablito Randolph Age: 26 yrs Sex: Male : 1995 Arrival Date: 09/25/2022 Time: 23:25 Bed 8 Private MD: ED Physician Ramy Lundberg HPI: 09/25 23:37 This 26 yrs old Male presents to ER via Unassigned with complaints of Head sp4 Injury-Adult. 23:37 Very pleasant patient presents with acute abrasion to the superior scalp. Patient sp4 states that he caught a nail at home with his head causing small abrasion to his superior. Unknown last tetanus shot , patient denied any other injury. Historical: - Allergies: 23:39 No Known Allergies; lg3 - Home Meds: 23:39 None [Active]; lg3 - PMHx: 23:39 ADD/ADHD; lg3 - PSHx: 23:39 Appendectomy; lg3 - Immunization history:: Adult Immunizations up to date, Client reports having NOT received the Covid vaccine. Last tetanus immunization: unknown. - Social history:: Patient/guardian denies using alcohol, street drugs, IV drugs, caffeine, over the counter diet medications, tobacco products, Smoking status: Reported history of juuling and/or vaping. Patient uses alcohol, occasionally. - Family history:: not pertinent. ROS: 23:37 Constitutional: Negative for fever, chills, and weight loss, Eyes: Negative for injury, sp4 pain, redness, and discharge, ENT: Negative for injury, pain, and discharge, Neck: Negative for injury, pain, and swelling, Cardiovascular: Negative for chest pain, palpitations, and edema, Respiratory: Negative for shortness of breath, cough, wheezing, and pleuritic chest pain, Abdomen/GI: Negative for abdominal pain, nausea, vomiting, diarrhea, and constipation, Back: Negative for injury and pain, : Negative for injury, bleeding, discharge, and swelling, MS/Extremity: Negative for injury and deformity, Skin: Negative for injury, rash, and discoloration, Neuro: Negative for headache, weakness, numbness, tingling, and seizure, Psych: Negative for depression, anxiety, Allergy/Immunology: Negative for hives, rash, and allergies Endocrine: Negative for neck swelling, polydipsia, polyuria, polyphagia, and weight changes Hematologic/Lymphatic: Negative for swollen nodes, abnormal bleeding, and unusual bruising Exam: 23:37 Constitutional: This is a well developed, well nourished patient who is awake, alert, sp4 and in no acute distress. Head/Face: Normocephalic, there is small 2 cm long abrasion to the superior scalp without hematoma or laceration. Eyes: Pupils equal round and reactive to light, extra-ocular motions intact. Lids and lashes normal. Conjunctiva and sclera are not injected. Cornea within normal limits. Periorbital areas with no swelling, redness, or edema. ENT: Nares patent. No nasal discharge, no septal abnormalities noted. Tympanic membranes are normal and external auditory canals are clear. Oropharynx with no redness, swelling, or masses, exudates, or evidence of obstruction, uvula midline. Mucous membranes moist. Neck: Trachea midline, no thyromegaly or masses palpated, and no cervical lymphadenopathy. Supple, full range of motion without nuchal rigidity, or vertebral point tenderness. No Meningismus. Chest/axilla: Normal chest wall appearance and motion. Nontender with no deformity. No lesions are appreciated. Cardiovascular: Regular rate and rhythm with a normal S1 and S2. No gallops, murmurs, or rubs. Normal PMI, no JVD. No pulse deficits. Respiratory: Lungs have equal breath sounds bilaterally, clear to auscultation and percussion. No rales, rhonchi or wheezes noted. No increased work of breathing, no retractions or nasal flaring. Abdomen/GI: Soft, non-tender, with normal bowel sounds. No distension or tympany. No guarding or rebound. No evidence of tenderness throughout. Back: No spinal tenderness. No costovertebral tenderness. Skin: Warm, dry with normal turgor. Normal color with no rashes, no lesions, and no evidence of cellulitis. Small superior scalp abrasion MS/ Extremity: Pulses equal, no cyanosis. Neurovascular intact. Full, normal range of motion. Neuro: Awake and alert, GCS 15, oriented to person, place, time, and situation. Cranial nerves II-XII grossly intact. Motor strength 5/5 in all extremities. Sensory grossly intact. Psych: Awake, alert, with orientation to person, place and time. Behavior, mood, and affect are within normal limits Vital Signs: 23:37 BP 132 / 77; Pulse 68; Resp 17 S; Temp 97.9(O); Pulse Ox 99% on R/A; Weight 110.22 kg lg3 (R); Height 6 ft. 2 in. (R); Pain 3/10; 23:37 Body Mass Index 31.20 (110.22 kg, 187.96 cm) lg3 23:37 Pain Scale: Adult lg3 Kimberly Coma Score: 23:37 Eye Response: spontaneous(4). Motor Response: obeys commands(6). Verbal Response: lg3 oriented(5). Total: 15. 23:37 Eye Response: spontaneous(4). Motor Response: obeys commands(6). Verbal Response: sp4 oriented(5). Total: 15. MDM: 23:37 Differential diagnosis: Contusion of Hematoma on Laceration of Concussion Abrasion. sp4 Data reviewed: vital signs, nurses notes. ED course: Small superior scalp abrasion does not require suture. Patient may be discharged home with advice to continue wound care at home. 23:41 Patient medically screened. 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 Exp: lg3 10/22/2023. Lot #: [id number]. } Route: IM; Site: right deltoid; 00:08 Follow up: Response: (VIS) Vaccine information sheet provided today. Questions and/or lg3 concerns addressed. VIS edition date: Dec 24, 2020.; No adverse reaction Disposition Summary: 09/25/22 23:41 Discharge Ordered Location: Home sp4 Problem: new sp4 Symptoms: have improved sp4 Condition: Stable sp4 Diagnosis - Abrasion of scalp sp4 Followup: sp4 - With: Private Physician - When: As needed - Reason: Discharge Instructions: - Discharge Summary Sheet sp4 - Abrasion, [id number] sp4 Signatures: Ilene Naidu RN RN lg3 Potepalov, Ramy, MD MD sp4
[2022-09-25] MEDS ORDERED: TETANUS & DIPHTHERIA TOX,ADULT 0.5 ML VIAL ONE (23:51)
[2022-09-26 00:38] VITALS: BP 132/77; TEMP 97.9; O2SAT 99
== END 2022-09-26 00:10 | disposition home or self-care (01) ==
LOC: ER 23:25
DX: S00.01XA Abrasion of scalp, initial encounter (principal)
CPT/HCPCS: 90471; 90714; 99284

== ENCOUNTER → 2023-06-11 | Emergency (ER) | payer SELFPAY ==
[~2023-06-11] MED LIST: AMOX/K CLAV 875 MG TAB ONE; KETOROLAC 30 MG/ML INJ ONE; NA CHLORIDE 0.9% 1,000 ML ONE; dexAMETHasone 10 MG/ML VIAL ONE
--- OUTSIDE RECORDS SUMMARY | 2023-06-11 20:25 | XMS REPORT | Continuity of Care Document ---
Author Name Unknown Address [address] [facility] [address] [place] [address] [facility] thconnect Address [address] [facility]. [address] [place] [address] Care Team Providers Care Resident Physician In Radiology Name Role Phone PCP, PATIENT DOES NOT HAVE A Primary Care Physic rory Unavailable Madhu VOGEL Attending Clinician Unavailable Madhu Frost Attending Clinician [phone] Doctor Unassigned, [place] Attending Clinician U navailable GREGORIO HARRIS Attending Clinician Unavailable Gregorio Harris NP Attending Clinician [phone] DELANEY LAMBERT Attending Clinician Unavailable [facility], [facility] Attending Clinician Unav ailable Bella Crespo Attending Clinician [phone] BELLA BINGHAM Attending Clinician Unavailable Max Linares MD Attending Clinician [phone] Sophie Davenport Attending Clinician [phone] Lucas Rojas MD Attending Clinician [phone] SOPHIE BAY Attending Clinician Unavailable Marquise Palomino MD Attending Clinician [phone] Problems Condition Name Condition Details Condition Category Status Onset Date Resolution Date Last Treatment Date Treating Clinician Comments Source Upper respirator y tract infection, unspecifie d type Upper respirator y tract infection, unspecifie d type Disease Active 08-11 00:00: 00 [facility] Tobacco dependence Tobacco dependence Disease Active 08-11 00:00: 00 [facility] No known active problems No known active problems Disease [facility] Allergies, Adverse Reactions, Alerts Allergy Name Allergy Type Status Severity Reaction(s) Onset Date Inactive Date Treating Clinician Comments Source NO KNOWN ALLERGIE S Drug Class Active [facility] Social History Social Habit Start Date Stop Date Quantity Comments Source History SDOH Alcohol Frequency [facility] History SDOH Alcohol Std Drinks [facility] History SDOH Alcohol Binge [facility] Exposure to SARS-CoV-2 (event) Yes [facility] of tobacco use Cigarette Smoker [facility] History of Social function 2021-05-19 00:00:00 2021-05-19 00:00:00 [facility] Alcohol intake 2021-05-19 00:00:00 2021-05-19 00:00:00 Current drinker of alcohol (finding) [facility] Tobacco use and exposure 2019-08-13 00:00:00 2019-08-13 00:00:00 Smokeless tobacco non-user [facility] Cigarettes smoked current (pack per day) - Reported 2019-08-13 00:00:00 2019-08-13 00:00:00 [facility] Cigarette pack-years 2019-08-13 00:00:00 2019-08-13 00:00:00 [facility] Alcohol Comment 2019-08-13 00:00:00 2019-08-13 00:00:00 once a month [facility] Sex Assigned At 1995 00:00:00 1995 00:00:00 [facility] Smoking Status Start Date Stop Date Source Smokes tobacco daily 2019-08-13 00:00:00 [facility] Unknown if ever smoked [facility] Medications Ordered Medication Name Filled Medication Name Start Date Stop Date Current Medication? Ordering Clinician Indication Dosage Frequency Signature (SIG) Comments Components Source methylPREDN ISolone (MEDROL, ALPHONSE,) 4 mg tablets 06-11 00:00: 00 Yes [id number] Take by mouth SEE-INSTRU CTIONS. follow package directions [facility] amoxicillin 500 mg capsule 06-11 00:00: 00 06-22 05:59 :00 Yes [id number] 500mg Take 1 capsule by mouth in the morning and 1 capsule at noon and 1 capsule in the evening. Do all this for 10 days. [facility] azithromyci n (ZITHROMAX Z-ALPHONSE) 250 mg tablet 08-25 00:00: 00 Yes [id number] 250mg Take 1 tablet by mouth daily. Take 500 mg day 1, then 250 mg days 2 to 5. [facility] azithromyci n (ZITHROMAX Z-ALPHONSE) 250 mg tablet 08-25 00:00: 00 Yes [id number] 250mg Take 1 tablet by mouth daily. Take 500 mg day 1, then 250 mg days 2 to 5. [facility] azithromyci n (ZITHROMAX Z-ALPHONSE) 250 mg tablet 08-25 00:00: 00 Yes [id number] 250mg Take 1 tablet by mouth daily. Take 500 mg day 1, then 250 mg days 2 to 5. [facility] azithromyci n (ZITHROMAX Z-ALPHONSE) 250 mg tablet 08-25 00:00: 00 Yes [id number] 250mg Take 1 tablet by mouth daily. Take 500 mg day 1, then 250 mg days 2 to 5. [facility] ibuprofen 600 mg tablet 09-19 00:00: 00 Yes 600mg Take 1 tablet by mouth every 6 (six) hours as needed for Pain (scale 4-6). [facility] sulfamethox azole-trime thoprim 800-160 mg per tablet 2016-05 00:00: 00 Yes 1{tbl} Take 1 tablet by mouth every 12 (twelve) hours. [facility] acyclovir 200 mg capsule 2016-05 00:00: 00 Yes 800mg Take 4 capsules by mouth 5 (five) times daily. [facility] mupirocin (BACTROBAN) 2 % cream 2016-05 00:00: 00 Yes Apply to affected area(s) 3 (three) times daily. [facility] sulfamethox azole-trime thoprim 800-160 mg per tablet 2016-05 00:00: 00 Yes 1{tbl} Take 1 tablet by mouth every 12 (twelve) hours. [facility] sulfamethox azole-trime thoprim 800-160 mg per tablet 2016-05 00:00: 00 Yes 1{tbl} Take 1 tablet by mouth every 12 (twelve) hours. [facility] amoxicillin 500 mg capsule 08-08 00:00: 00 Yes 500mg Take 1 capsule by mouth 3 (three) times daily. [facility] traMADOL (ULTRAM) 50 mg tablet 07-23 00:00: 00 Yes 50mg Take 1 tablet by mouth every 6 (six) hours as needed for Pain (scale 4-6). Juan José Brand PA-C / Jay Dsouza MD HALEY# [id number] DPS# [id number] x Lic.# [id number] NPI# [id number] [facility] benzonatate 200 mg capsule 05-29 00:00: 00 Yes 200mg Take 1 capsule by mouth 3 (three) times daily as needed for Cough. [facility] azithromyci n 250 mg tablet 05-29 00:00: 00 Yes 250mg Take 1 tablet by mouth daily. [facility] No known medications No [facility] No [facility] No Un maría elena [facility] No known medications No Un maría elena [facility] No known medications No Un maría elena [facility] No known medications No Un maría elena [facility] No known medications No Un maría elena [facility] Vital Signs Vital Name Observation Time Observation Value Comments S ource Systolic blood pressure 2023-06-11 19:00:00 125 mm[Hg] [facility] Diastolic blood pressure 2023-06-11 19:00:00 75 mm[Hg] [facility] Heart rate 2023-06-11 19:00:00 82 /min [facility] Body temperature 2023-06-11 19:00:00 36.61 Sri [facility] Respiratory rate 2023-06-11 19:00:00 16 /min [facility] Oxygen saturation in Arterial blood by Pulse oximetry 2023-06-11 19:00:00 99 /min [facility] Body height 2023-06-11 15:57:00 188 cm [facility] Body weight 2023-06-11 15:57:00 109.77 kg [facility] BMI 2023-06-11 15:57:00 31.07 kg/m2 [facility] Systolic blood pressure 2021-05-19 17:29:00 139 mm[Hg] [facility] Diastolic blood pressure 2021-05-19 17:29:00 74 mm[Hg] [facility] Heart rate 2021-05-19 17:29:00 85 /min [facility] Body temperature 2021-05-19 17:29:00 36.56 Sri [facility] Respiratory rate 2021-05-19 17:29:00 18 /min [facility] Body weight 2021-05-19 17:29:00 108.863 kg [facility] BMI 2021-05-19 17:29:00 30.81 kg/m2 [facility] Oxygen saturation in Arterial blood by Pulse oximetry 2021-05-19 17:29:00 99 /min [facility] Systolic blood pressure 2019-08-26 19:03:00 132 mm[Hg] [facility] Diastolic blood pressure 2019-08-26 19:03:00 85 mm[Hg] [facility] Heart rate 2019-08-26 19:03:00 103 /min [facility] Body temperature 2019-08-26 19:03:00 36.72 Sri [facility] Respiratory rate 2019-08-26 19:03:00 18 /min [facility] Body height 2019-08-26 19:03:00 188 cm [facility] Body weight 2019-08-26 19:03:00 108.863 kg [facility] BMI 2019-08-26 19:03:00 30.81 kg/m2 [facility] Oxygen saturation in Arterial blood by Pulse oximetry 2019-08-26 19:03:00 100 /min [facility] Systolic blood pressure 2019-08-26 19:03:00 132 mm[Hg] [facility] Diastolic blood pressure 2019-08-26 19:03:00 85 mm[Hg] [facility] Heart rate 2019-08-26 19:03:00 103 /min [facility] Body temperature 2019-08-26 19:03:00 36.72 Sri [facility] Respiratory rate 2019-08-26 19:03:00 18 /min [facility] Body height 2019-08-26 19:03:00 188 cm [facility] Body weight 2019-08-26 19:03:00 108.863 kg [facility] BMI 2019-08-26 19:03:00 30.81 kg/m2 [facility] Oxygen saturation in Arterial blood by Pulse oximetry 2019-08-26 19:03:00 100 /min [facility] Systolic blood pressure 2019-08-13 15:49:00 122 mm[Hg] [facility] Diastolic blood pressure 2019-08-13 15:49:00 79 mm[Hg] [facility] Heart rate 2019-08-13 15:49:00 72 /min [facility] Body temperature 2019-08-13 15:49:00 36.83 Sri [facility] Respiratory rate 2019-08-13 15:49:00 18 /min [facility] Body weight 2019-08-13 15:49:00 110.224 kg [facility] BMI 2019-08-13 15:49:00 31.20 kg/m2 [facility] Oxygen saturation in Arterial blood by Pulse oximetry 2019-08-13 15:49:00 98 /min [facility] Systolic blood pressure 2019-08-13 15:49:00 122 mm[Hg] [facility] Diastolic blood pressure 2019-08-13 15:49:00 79 mm[Hg] [facility] Heart rate 2019-08-13 15:49:00 72 /min [facility] Body temperature 2019-08-13 15:49:00 36.83 Sri [facility] Respiratory rate 2019-08-13 15:49:00 18 /min [facility] Body weight 2019-08-13 15:49:00 110.224 kg [facility] BMI 2019-08-13 15:49:00 31.20 kg/m2 [facility] Oxygen saturation in Arterial blood by Pulse oximetry 2019-08-13 15:49:00 98 /min [facility] Systolic blood pressure 2018-12-19 17:58:00 115 mm[Hg] [facility] Diastolic blood pressure 2018-12-19 17:58:00 92 mm[Hg] [facility] Heart rate 2018-12-19 17:58:00 68 /min [facility] Respiratory rate 2018-12-19 17:58:00 18 /min [facility] Oxygen saturation in Arterial blood by Pulse oximetry 2018-12-19 17:58:00 98 /min [facility] Body temperature 2018-12-19 16:45:00 36.67 Sri [facility] Body height 2018-12-19 16:45:00 188 cm [facility] Body weight 2018-12-19 16:45:00 109.77 kg [facility] BMI 2018-12-19 16:45:00 31.07 kg/m2 [facility] Procedures Procedure Date / Time Performed Performing Clinicia n Source ASSIGNMENT OF BENEFITS 2023-06-11 17:25:49 Docto r Unassigned, [place] [facility] RAPID STREP SCREEN FOR GROUP A 2023-06-11 16:57:00 Madhu Vogel [facility] NOTICE OF PRIVACY PRACTICES 2023-06-11 15:39:58 Doctor Unassigned, [place] [facility] CONSENT/REFUSAL FOR DIAGNOSIS AND TREATMENT 2023-06-11 15:37:54 Doctor Unassigned, [place] [facility] RAPID INFLUENZA A/B 2021-05-19 17:36:00 Gregorio Harris [facility] CONSENT/REFUSAL FOR DIAGNOSIS AND TREATMENT 2021-05-19 17:23:18 Doctor Unassigned, [place] [facility] POCT GRP A STREP (MOLECULAR) 2019-08-26 19:28:00 Rossy Ross [facility] ASSIGNMENT OF BENEFITS 2019-08-13 05:01:00 Docto r Unassigned, [place] [facility] XR KUB 2018-12-19 17:31:13 Marquise [facility] Plan of Care Planned Activity Planned Date Details Comments Source Encounters Start Date/Time End Date/Time Encounter Type Admission Type Attending [facility] Facility Care Department Encounter ID Source 2023-06-11 09:59:00 2023-06-11 13:15:00 Emergency X Madhu VOGEL [facility] ERT [id number] [facility] 2023-06-11 09:59:00 2023-06-11 13:15:00 Emergency Madhu Vogel [facility] 1.2.840.114 350.1.13.10 4.2.7.2.686 [id number] [facility] 2023-06-11 00:00:00 2023-06-11 00:00:00 Orders Only Doctor Unassigned, [place] [facility] 1.2.840.114 350.1.13.10 4.2.7.2.686 [id number] [facility] 2022-10-20 14:59:45 2022-10-20 14:59:45 Outpatient [facility] [id number] Albert Ruth 2021-05-19 11:36:00 2021-05-19 12:59:00 Emergency X GREGORIO HARRIS [facility] ERT [id number] [facility] 2021-05-19 11:36:00 2021-05-19 12:59:00 Emergency Gregorio Harris [facility] 1..114 350.1.13.10 4.2.7.2.686 [id number] [facility] 2020-08-21 15:00:00 2020-08-21 15:00:00 Outpatient DELANEY DIALLO [facility] [id number] [facility] 2019-08-26 13:54:03 2019-08-26 14:14:03 Urgent Care Pob1, Acute Care [facility] 1..114 350.1.13.10 4.2.7.2.686 [id number] 2019-08-26 13:54:03 2019-08-26 14:14:03 Urgent Care Pob1, Acute Care Clinic Bella Bingham [facility] 1.114 350.1.13.10 4.2.7.2.686 [id number] [facility] 2019-08-26 13:40:00 2019-08-26 13:40:00 Outpatient R BELLA BINGHAM [facility] [id number] [facility] 2019-08-26 00:00:00 2019-08-26 00:00:00 Telephone Po, Acute Care [facility] 1.114 350.1.13.10 4.2.7.2.686 [id number] 2019-08-26 00:00:00 2019-08-26 00:00:00 Telephone Pob1, Acute Care [facility] 1.114 350.1.13.10 4.2.7.2.686 [id number] [facility] 2019-08-21 00:00:00 2019-08-21 00:00:00 Telephone Max Linares [facility] Building 1.2.840.114 350.1.13.10 4.2.7.2.686 [id number] [facility] 2019-08-21 00:00:00 2019-08-21 00:00:00 Telephone Max Linares [facility] Building 1.2.840.114 350.1.13.10 4.2.7.2.686 [id number] 2019-08-15 00:00:00 2019-08-15 00:00:00 Letter (Out) Sophie Bay [facility] Building 1.2.840.114 350.1.13.10 4.2.7.2.686 [id number] [facility] 2019-08-15 00:00:00 2019-08-15 00:00:00 Letter (Out) Sophie Bay [facility] Building 1.2.840.114 350.1.13.10 4.2.7.2.686 [id number] 2019-08-13 10:22:52 2019-08-13 11:31:16 Office Visit Po, Acute Care Clinic Lucas Rojas Leslie Yung [facility] 1.2.840.114 350.1.13.10 4.2.7.2.686 [id number] [facility] 2019-08-13 10:22:52 2019-08-13 11:31:16 Office Visit Pob1, Acute Care Clinic [facility] 1.2.840.114 350.1.13.10 4.2.7.2.686 [id number] 2019-08-13 10:40:00 2019-08-13 10:40:00 Outpatient R SOPHIE BAY [facility] [id number] [facility] 2019-08-13 00:00:00 2019-08-13 00:00:00 Orders Only Doctor Unassigned, [place] [facility] 1.2.840.114 350.1.13.10 4.2.7.2.686 [id number] [facility] 2019-08-13 00:00:00 2019-08-13 00:00:00 Orders Only Doctor Unassigned, [place] [facility] 1.2.840.114 350.1.13.10 4.2.7.2.686 [id number] 2018-12-19 11:41:09 2018-12-19 13:35:00 Emergency Marquise Palomino [facility] 1.2.840.114 350.1.13.10 4.2.7.2.686 [id number] [facility] Results Test Description Test Time Test Comments Results Result Co mments Source POCT GRP A STREP (MOLECULAR)2019-08-26 19:28:00* Test Item Value Reference Range Interpretation Comme nts POCT GP A STREP (test code = 19388-7) negative Negative - Negative Lab Interpretation (test cod e = [id number]) Normal [facility] 17:39:31HISTORY: Abdominal pain. FINDINGS: 2 abdominal images showed unremarkable intestinal gas pattern. Noorganomegaly. Calcifications in the left upper abdomen likely phlebolithswithin the spleen. Calcifications are also seen in the right upper abdomen,uncertain location. No definite kidney stone or gallstone. No aggressivebone lesions. CONCLUSIONS: No acute findings. [facility], Radiant Results Inft -12/19/2018 12:39 PM CDTHISTORY: Abdominal pain.FINDINGS: 2 abdominal images showed unremarkable intestinal gas pattern. Noorganomegaly. Calcifications in the left upper abdomen likely phlebolithswithin the spleen. Calcifications are also seen in the right upper abdomen,uncertain location. No definite kidney stone or gallstone. No aggressivebone lesions.CONCLUSIONS: No acute findings.[facility] Notes Date/Time Note Provider Source 2023-06-11 13:14:26 [id number]/[id number] BGxtaaU62GLyqP BfG7IqcIim9a5kly12d6Sf0PWGXtM47510 T13:14:26 Written/verbal d/c instructions, out of er no distress 59714-9Rjyhciewd department FzzcIU0937-93-30G48:14:39[facility] [id number] .2.344383|[id number] for patient lpzo73589-4YpgrATEGTSYELSPWmyhikos d C-CDA narrative text[address] 84HZGYXUAWGIABNEIEODYVZI7339-78-68 T13:14:391.2.840.625403.1.72.3.15| 1.2.840.200944.1.13.104.2.7.2.7278 [id number] [facility] 2023-06-11 09:54:50 ifCT7tNvJRHvKl1Nsp6j BtFUs/p6JHQiIL 8fwCsnVDz1waPyhzAk5tQHBDUCevls1436 -01-22T09:54:50 Pablito Randolph is a 27 year old male c/o cough since yesterday,sore throat on the left side with ear pain since last night, 62944-3Spagcaxiw department Triage xiqcXB9568-72-73X10:58:47[facility] Triage noteTXT1.2.840.494230.1.13.104.2.7 .2.755592|[id number] for patient uynj89273-1Hhejlnxut department NoteLNNARRATIVEFormatted C-CDA narrative [id number] TAVARES[address] [id number] 09ANVDYAIUNDHHMTNKEWDZDI6957-56-67 T09:58:471.2.840.134088.1.72.3.15| 1.2.840.322893.1.13.104.2.7.2.7278 [id number] Kathi Steward RN [facility]"
--- NOTE | 2023-06-11 21:51 | RAD REPORT ---
EXAM DESCRIPTION: CT - Soft Tissue Neck W/Contr CLINICAL HISTORY: SORE THROAT COMPARISON: No comparisons TECHNIQUE: Thin axial CT images of the neck, performed following intravenous administration of 95 m L Isovue-300. Multiplanar reformats were generated and reviewed. All CT scans are performed using dose optimization technique as appropriate and may include automated exposure control or mA/KV adjustment according to patient size. FINDINGS: Mild diffuse swelling with mild hyperenhancement and striations along the bilateral palati ne tonsils and adenoidal tissues. No significant adjacent peritonsillar edema. No evidence of periton sillar fluid collections. Nasopharyngeal tissues are normal in appearance. Fossa Rosenmller are normal. Parapharyngeal fat triangles are symmetric. Tongue base structures are normal. Epiglottis and aryepiglottic folds are normal. Piriform sinuses are well aerated. The vocal cords are normal in appearance. Mildly prominent bilateral cervical lymph nodes, largest at level 2A on the right measuring 1.7 cm in short axis. Complete opacification of the right maxillary sinus with volume loss. Moderate polypoidal mucosal thi ckening in the left maxillary sinus. Salivary glands are normal in appearance. Upper lung mauro are clear. Included intracranial contents are unremarkable. IMPRESSION: Hyperenhancement suggesting mild inflammatory changes throughout the Waldeyer's ring, wi thout evidence of peritonsillar abscess or airway narrowing.
--- NOTE | 2023-06-11 21:56 | RAD REPORT ---
EXAM DESCRIPTION: RADChest Single View06/11/2023 9:07 pm CLINICAL HISTORY: COUGH COMPARISON: Chest Single View dated 08/22/2020 TECHNIQUE: Portable AP view of the chest. FINDINGS: The lungs are clear. No pneumothorax or effusion. The cardiomediastinal contours are unre markable. IMPRESSION: No acute cardiopulmonary process.
--- NOTE | 2023-06-11 22:14 | ER ---
Nurse's Notes [facility] Name: Pablito Randolph Age: 27 yrs Sex: Male : 1995 Arrival Date: 06/11/2023 Time: 20:22 Bed DX3 Private MD: Diagnosis: Streptococcal tonsillitis;SARS-associated coronavirus as the cause of diseases classified elsewhere Presentation: 06/11 20:39 Chief complaint: Patient states: SORE THROAT, BODY ACHES, PAIN IN CHEST WITH BREATHING jj7 X1 DAY. Coronavirus screen: At this time, the client does not indicate any symptoms associated with coronavirus-19. Ebola Screen: No symptoms or risks identified at this time. Initial Sepsis Screen: Does the patient meet any 2 criteria? HR > 90 bpm. Yes Does the patient have a suspected source of infection? No. Patient's initial sepsis screen is negative. Risk Assessment: Do you want to hurt yourself or someone else? Patient reports no desire to harm self or others. 20:39 Method Of Arrival: Ambulatory j7 20:39 Acuity: CHUY 4 jj7 22:33 Onset of symptoms is unknown. ap3 Triage Assessment: 20:40 General: Appears in no apparent distress. uncomfortable, Behavior is calm, cooperative, jj7 appropriate for age. Pain: Complains of pain in THROAT, BODYACHES. EENT: Throat has enlarged tonsils on right. Historical: - Allergies: 20:40 No Known Allergies; jj7 - PMHx: 20:40 ADD/ADHD; jj7 - PSHx: 20:40 Appendectomy; jj7 - Immunization history:: Adult Immunizations not immunized, Flu vaccine is up to date. - Social history:: Smoking status: Reported history of juuling and/or vaping. Patient/guardian denies using alcohol, street drugs. Screenin:32 [facility] ED Fall Risk Assessment (Adult) History of falling in the last 3 months, ap3 including since admission No falls in past 3 months (0 pts). Abuse screen: Denies threats or abuse. Nutritional screening: No deficits noted. Tuberculosis screening: No symptoms or risk factors identified. Assessment: 22:33 Respiratory: Airway is patent Respiratory effort is even, unlabored. ap3 Vital Signs: 20:39 BP 126 / 75; Pulse 104; Resp 20; Temp 99.3; Pulse Ox 97% ; Weight 109.77 kg; Height 6 jj7 ft. 2 in. ; Pain 8/10; 20:39 Body Mass Index 31.07 (109.77 kg, 187.96 cm) jj7 20:39 Pain Scale: Adult j7 ED Course: 20:24 Patient arrived in ED. jj6 20:26 Toshia Hayes FNP-C is PSYCHIATRICP. kb 20:26 Raym Lundberg MD is Attending Physician. kb 20:40 Triage completed. jj7 20:40 Arm band placed on right wrist. jj7 20:49 Flu Sent. jj7 20:49 SARS-COV-2 RT PCR Sent. jj7 20:49 Strep Sent. jj7 20:53 Inserted saline lock: 20 gauge in right antecubital area, using aseptic technique. ap3 21:01 Chelle Mejía, RN is Primary Nurse. ap3 21:06 CT Soft Tissue Neck W/contr In Process Unspecified. EDMS 21:08 Chest Single View XRAY In Process Unspecified. EDMS 22:33 Patient has correct armband on for positive identification. Adult w/ patient. ap3 22:33 Provided Education on: discharge instructions. ap3 22:33 No provider procedures requiring assistance completed. IV discontinued, intact, ap3 bleeding controlled, No redness/swelling at site. Pressure dressing applied. Administered Medications: 21:00 Drug: NS 0.9% IV 1000 ml IV at 1000 ml once Route: IV; Rate: 1000 ml; Site: right ap3 antecubital; 22:33 Follow up: IV Status: Completed infusion; IV Intake: 1000ml ap3 21:00 Drug: Decadron - Dexamethasone IVP 10 mg IVP once Route: IVP; Site: right antecubital; ap3 21:20 Follow up: Response: No adverse reaction ap3 21:00 Drug: Ketorolac IVP 15 mg IVP once Route: IVP; Site: right antecubital; ap3 21:20 Follow up: Response: No adverse reaction ap3 22:28 Drug: Amoxicillin-Clavulanate PO 875 mg PO once Route: PO; ap3 22:28 Follow up: Response: No adverse reaction ap3 Medication: 22:33 VIS not applicable for this client. ap3 Intake: 22:33 IV: 1000ml; Total: 1000ml. ap3 Outcome: 22:13 Discharge ordered by MD. aguiar 22:33 Discharged to home ambulatory, with family, ap3 22:33 Condition: good 22:33 Discharge instructions given to patient, Instructed on discharge instructions, follow up and referral plans. medication usage, Demonstrated understanding of instructions, follow-up care, medications, Prescriptions given X 1, :34 Patient left the ED. ap3 Signatures: Dispatcher [employer] EDMS Toshia Hayes, Chelle Sharma RN RN ap3 Rossy Howard jj6 Claire Mc RN RN jj7
--- NOTE | 2023-06-11 22:14 | EDPHYS ---
Physician Documentation [facility] Name: Pablito Randolph Age: 27 yrs Sex: Male : 1995 Arrival Date: 06/11/2023 Time: 20:22 Bed DX3 Private MD: ED Physician Ramy Lundberg HPI: 06/11 22:34 This 27 yrs old Male presents to ER via Ambulatory with complaints of Swollen Glands, kb PAIN IN RIB CAGE, PAINFUL BREATHING, Sore Throat. 22:34 Patient is a 27-year-old male with no medical history who presents for sore throat, kb body aches, cough and pain to lower lungs/rib cage with cough, deep breaths or movement. Denies fever. . Historical: - Allergies: 20:40 No Known Allergies; jj7 - PMHx: 20:40 ADD/ADHD; jj7 - PSHx: 20:40 Appendectomy; jj7 - Immunization history:: Adult Immunizations not immunized, Flu vaccine is up to date. - Social history:: Smoking status: Reported history of juuling and/or vaping. Patient/guardian denies using alcohol, street drugs. ROS: 22:33 Abdomen/GI: Negative for abdominal pain, nausea, vomiting, diarrhea, and constipation, kb 22:33 Constitutional: Positive for body aches, 22:33 ENT: Positive for sinus congestion, sore throat, 22:33 Cardiovascular: Positive for chest pain, with cough, with movement, 22:33 Respiratory: Positive for cough, 22:33 All other systems are negative, Exam: 22:33 Constitutional: This is a well developed, well nourished patient who is awake, alert, kb and in no acute distress. Head/Face: Normocephalic, atraumatic. Cardiovascular: Regular rate Respiratory: Respirations even and unlabored. No increased work of breathing. Talking in full sentences Abdomen/GI: Soft, non-tender. No distention Skin: Warm, dry with normal turgor. Normal color. MS/ Extremity: Pulses equal, no cyanosis. Neurovascular intact. Full, normal range of motion. Neuro: Awake and alert, GCS 15, oriented to person, place, time, and situation. Moves all extremities. Normal gait. 22:33 ENT: Posterior pharynx: Tonsils: bilaterally enlarged, with erythema, Right tonsil more enlarged than the left, swelling, that is moderate, erythema, that is moderate, exudate, that is mild, Vital Signs: 20:39 BP 126 / 75; Pulse 104; Resp 20; Temp 99.3; Pulse Ox 97% ; Weight 109.77 kg; Height 6 jj7 ft. 2 in. ; Pain 8/10; 20:39 Body Mass Index 31.07 (109.77 kg, 187.96 cm) [facility] 20:39 Pain Scale: Adult [facility] MDM: 20:26 Patient medically screened. kb 22:34 Differential diagnosis: Flu, strep, COVID, URI, [employer]CH[employer]. Data reviewed: vital signs, nurses kb notes. Counseling: I had a detailed discussion with the patient and/or guardian regarding the historical points, exam findings, and any diagnostic results supporting the discharge/admit diagnosis, lab results, radiology results, the need for outpatient follow up, a family practitioner, to return to the emergency department if symptoms worsen or persist or if there are any questions or concerns that arise at home. 06/11 20:45 Order name: Flu; Complete Time: 21:33 kb 06/11 20:45 Order name: SARS-COV-2 RT PCR; Complete Time: 21:56 kb 06/11 20:45 Order name: Strep; Complete Time: 21:33 kb 06/11 20:45 Order name: CT Soft Tissue Neck W/contr; Complete Time: 21:52 kb 06/11 20:45 Order name: Chest Single View XRAY; Complete Time: 22:01 kb Administered Medications: 21:00 Drug: NS 0.9% IV 1000 ml IV at 1000 ml once Route: IV; Rate: 1000 ml; Site: right ap3 antecubital; 22:33 Follow up: IV Status: Completed infusion; IV Intake: 1000ml ap3 21:00 Drug: Decadron - Dexamethasone IVP 10 mg IVP once Route: IVP; Site: right antecubital; ap3 21:20 Follow up: Response: No adverse reaction ap3 21:00 Drug: Ketorolac IVP 15 mg IVP once Route: IVP; Site: right antecubital; ap3 21:20 Follow up: Response: No adverse reaction ap3 22:28 Drug: Amoxicillin-Clavulanate PO 875 mg PO once Route: PO; ap3 22:28 Follow up: Response: No adverse reaction ap3 Disposition: 06/12 00:44 Co-signature as Attending Physician, Ramy Lundberg MD I agree with the assessment sp4 and plan of care. I reviewed the patient's care provided by the Advanced Practice Provider and agree with the diagnosis and treatment plan. Disposition Summary: 06/11/23 22:13 Discharge Ordered Notes: Location: Home kb Condition: Stable kb Diagnosis - Streptococcal tonsillitis kb - SARS-associated coronavirus as the cause of diseases classified elsewhere kb Followup: kb - With: Emergency Department - When: As needed - Reason: Worsening of condition Followup: kb - With: Private Physician - When: 2 - 3 days - Reason: Recheck today's complaints, Continuance of care, Re-evaluation by your physician Discharge Instructions: - Discharge Summary Sheet kb - Strep Throat, Adult, [id number] kb - COVID-19 kb - Viral Illness, Adult kb Forms: - Work release form kb - Medication Reconciliation Form kb - Thank You Letter kb - Antibiotic Education kb - Prescription Opioid Use kb - Patient Portal Instructions kb - Leadership Thank You Letter kb Prescriptions: - Augmentin 875-125 mg Oral Tablet - take 1 tablet ORAL route every 12 hours for 10 days; 20 tablet; Refills: 0, kb Product Selection Permitted Signatures: Dispatcher [employer] Toshia Sprague FNP-C FNP-Chelle Mukherjee RN RN ap3 Claire Mc RN RN jj7 Ramy Lundberg MD MD sp4
[2023-06-12 05:01] VITALS: BP 126/75; TEMP 99.3; O2SAT 97
== END ==
LOC: ER 20:22
DX: U07.1 COVID-19 (principal); J02.0 Streptococcal pharyngitis
CPT/HCPCS: 70491; 71045; 87081; 87635; 87804; 96361; 96374; 96375; 99284; J1100; J7030; Q9967

== ENCOUNTER 2023-08-30 08:12 | Emergency (ER) | payer SELFPAY ==
--- OUTSIDE RECORDS SUMMARY | 2023-08-30 08:14 | XMS REPORT | Continuity of Care Document ---
Author Name Unknown Address [address] [facility] [address] [place] [address] [facility] Address [address] [facility] [address] [place] [address] Care Team Providers Care Corporate Communications Manager Name Role Phone PCP, PATIENT DOES NOT HAVE A Primary Care Physic rory Unavailable Madhu VOGEL Attending Clinician Unavailable Madhu Frost Attending Clinician [phone] Doctor Unassigned, [place] Attending Clinician U navailGREGORIO Ordonez Attending Clinician Unavailable Gregorio Harris NP Attending Clinician [phone] DELANEY LAMBERT Attending Clinician Unavailable Pob1, Acute Care Clinic Attending Clinician Unav ailable Bella Crespo Attending Clinician [phone] BELLA BINGHAM Attending Clinician Unavailable Max Linares MD Attending Clinician [phone] Sophie Davenport Attending Clinician [phone] Lucas Rojas MD Attending Clinician [phone] [place] Attending Clinician Unavailable Marquise Palomino MD Attending Clinician [phone] Problems Condition Name Condition Details Condition Category Status Onset Date Resolution Date Last Treatment Date Treating Clinician Comments Source Upper respirator y tract infection, unspecifie d type Upper respirator y tract infection, unspecifie d type Disease Active 08-11 00:00: 00 [facility] Tobacco dependence Tobacco dependence Disease Active 08-11 00:00: 00 [facility] No known active problems No known active problems Disease [facility] Allergies, Adverse Reactions, Alerts Allergy Name Allergy Type Status Severity Reaction(s) Onset Date Inactive Date Treating Clinician Comments Source NO KNOWN ALLERGIE S Drug Class Active [facility] Social History Social Habit Start Date Stop Date Quantity Comments Source History SDOH Alcohol Frequency [facility] History SDOH Alcohol Std Drinks [facility] History SDOH Alcohol Binge [facility] Exposure to SARS-CoV-2 (event) Yes [facility] of tobacco use Cigarette Smoker [facility] History of Social function 2021-05-19 00:00:00 2021-05-19 00:00:00 [facility] Alcohol intake 2021-05-19 00:00:00 2021-05-19 00:00:00 Current drinker of alcohol (finding) [facility] Tobacco use and exposure 2019-08-13 00:00:00 2019-08-13 00:00:00 Smokeless tobacco non-user [facility] Cigarettes smoked current (pack per day) - Reported 2019-08-13 00:00:00 2019-08-13 00:00:00 [facility] Cigarette pack-years 2019-08-13 00:00:00 2019-08-13 00:00:00 [facility] Alcohol Comment 2019-08-13 00:00:00 2019-08-13 00:00:00 once a month [facility] Sex Assigned At 1995 00:00:00 1995 00:00:00 [facility] Smoking Status Start Date Stop Date Source Smokes tobacco daily 2019-08-13 00:00:00 [facility] Unknown if ever smoked [facility] Medications Ordered Medication Name Filled Medication Name Start Date Stop Date Current Medication? Ordering Clinician Indication Dosage Frequency Signature (SIG) Comments Components Source methylPREDN ISolone (MEDROL, ALPHONSE,) 4 mg tablets 06-11 00:00: 00 Yes [id number] Take by mouth SEE-INSTRU CTIONS. follow package directions [facility] amoxicillin 500 mg capsule 06-11 00:00: 00 06-22 05:59 :00 Yes [id number] 500mg Take 1 capsule by mouth in the morning and 1 capsule at noon and 1 capsule in the evening. Do all this for 10 days. [facility] azithromyci n (ZITHROMAX Z-ALPHONSE) 250 mg tablet 08-25 00:00: 00 Yes [id number] 250mg Take 1 tablet by mouth daily. Take 500 mg day 1, then 250 mg days 2 to 5. [facility] ibuprofen 600 mg tablet 09-19 00:00: 00 Yes 600mg Take 1 tablet by mouth every 6 (six) hours as needed for Pain (scale 4-6). [facility] acyclovir 200 mg capsule 2016-05 00:00: 00 Yes 800mg Take 4 capsules by mouth 5 (five) times daily. [facility] mupirocin (BACTROBAN) 2 % cream 2016-05 00:00: 00 Yes Apply to affected area(s) 3 (three) times daily. [facility] sulfamethox azole-trime thoprim 800-160 mg per tablet 2016-05 00:00: 00 Yes 1{tbl} Take 1 tablet by mouth every 12 (twelve) hours. [facility] amoxicillin 500 mg capsule 08-08 00:00: 00 Yes 500mg Take 1 capsule by mouth 3 (three) times daily. [facility] traMADOL (ULTRAM) 50 mg tablet 07-23 00:00: 00 Yes 50mg Take 1 tablet by mouth every 6 (six) hours as needed for Pain (scale 4-6). Juan José Brand PA-C / Jay Dsouza MD HALEY# [id number] DPS# [id number] x Lic.# [id number] [facility]# [id number] [facility] benzonatate 200 mg capsule 05-29 00:00: 00 Yes 200mg Take 1 capsule by mouth 3 (three) times daily as needed for Cough. [facility] azithromyci n 250 mg tablet 05-29 00:00: 00 Yes 250mg Take 1 tablet by mouth daily. [facility] No known medications No Un maría elena [facility] No known medications No Un maría elena [facility] No known medications No Un maría elena [facility] No known medications No Un maría elena [facility] No known medications [facility]s Vital Name Observation Time Observation Value Comments S ource Systolic blood pressure 2023-06-11 19:00:00 125 mm[Hg] [facility] Diastolic blood pressure 2023-06-11 19:00:00 75 mm[Hg] [facility] Heart rate 2023-06-11 19:00:00 82 /min [facility] Body temperature 2023-06-11 19:00:00 36.61 Sri [facility] Respiratory rate 2023-06-11 19:00:00 16 /min [facility] Oxygen saturation in Arterial blood by Pulse oximetry 2023-06-11 19:00:00 99 /min [facility] Body height 2023-06-11 15:57:[address] [facility] Body weight 2023-06-11 15:57:[address] [facility] BMI 2023-06-11 15:57:00 31.07 kg/m2 [facility] Systolic blood pressure 2021-05-19 17:29:00 139 mm[Hg] [facility] Diastolic blood pressure 2021-05-19 17:29:00 74 mm[Hg] [facility] Heart rate 2021-05-19 17:29:00 85 /min [facility] Body temperature 2021-05-19 17:29:00 36.56 Sri [facility] Respiratory rate 2021-05-19 17:29:00 18 /min [facility] Body weight 2021-05-19 17:29:00 108.863 [facility] BMI 2021-05-19 17:29:00 30.81 kg/m2 [facility] Oxygen saturation in Arterial blood by Pulse oximetry 2021-05-19 17:29:00 99 /min [facility] Systolic blood pressure 2019-08-26 19:03:00 132 mm[Hg] [facility] Diastolic blood pressure 2019-08-26 19:03:00 85 mm[Hg] [facility] Heart rate 2019-08-26 19:03:00 103 /min [facility] Body temperature 2019-08-26 19:03:00 36.72 Sri [facility] Respiratory rate 2019-08-26 19:03:00 18 /min [facility] Body height 2019-08-26 19:03:00 188 [facility] Body weight 2019-08-26 19:03:00 108.863 kg Univ [facility] BMI 2019-08-26 19:03:00 30.81 kg/m2 [facility] Oxygen saturation in Arterial blood by Pulse oximetry 2019-08-26 19:03:00 100 /min [facility] Systolic blood pressure 2019-08-26 19:03:00 132 mm[Hg] [facility] Diastolic blood pressure 2019-08-26 19:03:00 85 mm[Hg] [facility] Heart rate 2019-08-26 19:03:00 103 /min [facility] Body temperature 2019-08-26 19:03:00 36.72 Sri [facility] Respiratory rate 2019-08-26 19:03:00 18 /min [facility] Body height 2019-08-26 19:03:00 188 [facility] Body weight 2019-08-26 19:03:00 108.863 kg Univ [facility] BMI 2019-08-26 19:03:00 30.81 kg/m2 [facility] Oxygen saturation in Arterial blood by Pulse oximetry 2019-08-26 19:03:00 100 /min [facility] Systolic blood pressure 2019-08-13 15:49:00 122 mm[Hg] [facility] Diastolic blood pressure 2019-08-13 15:49:00 79 mm[Hg] [facility] Heart rate 2019-08-13 15:49:00 72 /min [facility] Body temperature 2019-08-13 15:49:00 36.83 Sri [facility] Respiratory rate 2019-08-13 15:49:00 18 /min [facility] Body weight 2019-08-13 15:49:00 110.224 kg Univ [facility] BMI 2019-08-13 15:49:00 31.20 kg/m2 [facility] Oxygen saturation in Arterial blood by Pulse oximetry 2019-08-13 15:49:00 98 /min [facility] Systolic blood pressure 2019-08-13 15:49:00 122 mm[Hg] [facility] Diastolic blood pressure 2019-08-13 15:49:00 79 mm[Hg] [facility] Heart rate 2019-08-13 15:49:00 72 /min [facility] Body temperature 2019-08-13 15:49:00 36.83 Sri [facility] Respiratory rate 2019-08-13 15:49:00 18 /min [facility] Body weight 2019-08-13 15:49:[address] [facility] BMI 2019-08-13 15:49:00 31.20 kg/m2 [facility] Oxygen saturation in Arterial blood by Pulse oximetry 2019-08-13 15:49:00 98 /min [facility] Systolic blood pressure 2018-12-19 17:58:00 115 mm[Hg] [facility] Diastolic blood pressure 2018-12-19 17:58:00 92 mm[Hg] [facility] Heart rate 2018-12-19 17:58:00 68 /min [facility] Respiratory rate 2018-12-19 17:58:00 18 /min [facility] Oxygen saturation in Arterial blood by Pulse oximetry 2018-12-19 17:58:00 98 /min [facility] Body temperature 2018-12-19 16:45:00 36.67 Sri [facility] Body height 2018-12-19 16:45:[address] [facility] Body weight 2018-12-19 16:45:[address] [facility] BMI 2018-12-19 16:45:00 31.07 kg/m2 [facility] Procedures Procedure Date / Time Performed Performing Clinicia n Source ASSIGNMENT OF BENEFITS 2023-06-11 17:25:49 Docchan r Unassigned, [place] [facility] RAPID STREP SCREEN FOR GROUP A 2023-06-11 16:57:00 Madhu Vogel [facility] NOTICE OF PRIVACY PRACTICES 2023-06-11 15:39:58 Doctor Unassigned, [place] [facility] CONSENT/REFUSAL FOR DIAGNOSIS AND TREATMENT 2023-06-11 15:37:54 Doctor Unassigned, [place] [facility] RAPID INFLUENZA A/B 2021-05-19 17:36:00 Gregorio Harris [facility] CONSENT/REFUSAL FOR DIAGNOSIS AND TREATMENT 2021-05-19 17:23:18 Doctor Unassigned, [place] [facility] POCT GRP A STREP (MOLECULAR) 2019-08-26 19:28:00 Rossy Ross [facility] ASSIGNMENT OF BENEFITS 2019-08-13 05:01:00 Docto r Unassigned, [place] [facility] XR KUB 2018-12-19 17:31:13 Marquise Palomino [facility] Encounters Start Date/Time End Date/Time Encounter Type Admission Type Attending Clinicians Care Facility Care Department Encounter ID Source 2023-06-11 09:59:00 2023-06-11 13:15:00 Emergency X Madhu VOGEL [facility] ERT [id number] [facility] 2023-06-11 09:59:00 2023-06-11 13:15:00 Emergency Madhu Vogel [facility] 1.2.840.114 350.1.13.10 4.2.7.2.686 [id number] [facility] 2023-06-11 00:00:00 2023-06-11 00:00:00 Orders Only Doctor Unassigned, [place] [facility] 1.2840.114 350.1.13.10 4.2.7.2.686 [id number] [facility] 2022-10-20 14:59:45 2022-10-20 14:59:45 Outpatient [facility] [id number] Albert Ruth 2021-05-19 11:36:00 2021-05-19 12:59:00 Emergency X GREGORIO HARRIS [facility] ERT [id number] [facility] 2021-05-19 11:36:00 2021-05-19 12:59:00 Emergency Gregorio Harris G [facility] 1.2840.114 350.1.13.10 4.2.7.2.686 [id number] [facility] 2020-08-21 15:00:00 2020-08-21 15:00:00 Outpatient Judi [facility] [id number] [facility] 2019-08-26 13:54:03 2019-08-26 14:14:03 Urgent Care Pob1, Acute Care Clinic [facility] 1.2840.114 350.1.13.10 4.2.7.2.686 [id number] 2019-08-26 13:54:03 2019-08-26 14:14:03 Urgent Care [facility] 1.840.114 350.1.13.10 4.2.7.2.686 [id number] [facility] 2019-08-26 13:40:00 2019-08-26 13:40:00 Outpatient R [facility] [id number] [facility] 2019-08-26 00:00:00 2019-08-26 00:00:00 Telephone Pob1, Acute Care [facility] 1.2.840.114 350.1.13.10 4.2.7.2.686 [id number] 2019-08-26 00:00:00 2019-08-26 00:00:00 Telephone Pob1, Acute [facility] 1.2.840.114 350.1.13.10 4.2.7.2.686 [id number] [facility] 2019-08-21 00:00:00 2019-08-21 00:00:00 Telephone Max Linares [facility] 1.2.840.114 350.1.13.10 4.2.7.2.686 [id number] [facility] 2019-08-21 00:00:00 2019-08-21 00:00:00 Telephone Max Linares [facility] 1.2.840.114 350.1.13.10 4.2.7.2.686 [id number] 2019-08-15 00:00:00 2019-08-15 00:00:00 Letter (Out) Sophie Bay [facility] 1.2.840.114 350.1.13.10 4.2.7.2.686 [id number] [facility] 2019-08-15 00:00:00 2019-08-15 00:00:00 Letter (Out) Sophie Bay [facility] 1.2.840.114 350.1.13.10 4.2.7.2.686 [id number] 2019-08-13 10:22:52 2019-08-13 11:31:16 Office Visit Pob1, Acute Care Clinic Lucas Rojas Leslie A [facility] 1.2.840.114 350.1.13.10 4.2.7.2.686 [id number] [facility] 2019-08-13 10:22:52 2019-08-13 11:31:16 Office Visit Pob1, Acute Care Clinic [facility] 1.2.840.114 350.1.13.10 4.2.7.2.686 [id number] 2019-08-13 10:40:00 2019-08-13 10:40:00 Outpatient R [facility] [id number] [facility] 2019-08-13 00:00:00 2019-08-13 00:00:00 Orders Only Doctor Unassigned, [place] [facility] 1.2.840.114 350.1.13.10 4.2.7.2.686 [id number] [facility] 2019-08-13 00:00:00 2019-08-13 00:00:00 Orders Only Doctor Unassigned, [place] [facility] 1.2.840.114 350.1.13.10 4.2.7.2.686 [id number] 2018-12-19 11:41:09 2018-12-19 13:35:00 Emergency CandelarioMarquise [facility] 1.2840.114 350.1.13.10 4.2.7.2.686 [id number] [facility] Results Test Description Test Time Test Comments Results Result Co mments Source POCT GRP A STREP (MOLECULAR)2019-08-26 19:28:00* Test Item Value Reference Range Interpretation Comme nts POCT GP A STREP (test code = 29589-0) negative Negative - Negative Lab Interpretation (test cod e = 62529-1) Normal [id number] 17:39:31HISTORY: Abdominal pain. FINDINGS: 2 abdominal images showed unremarkable intestinal gas pattern. Noorganomegaly. Calcifications in the left upper abdomen likely phlebolithswithin the spleen. Calcifications are also seen in the right upper abdomen,uncertain location. No definite kidney stone or gallstone. No aggressivebone lesions. CONCLUSIONS: No acute findings. [facility], Radiant Results Inft User -12/19/2018 12:39 PM CDTHISTORY: Abdominal pain.FINDINGS: 2 abdominal images showed unremarkable intestinal gas pattern. Noorganomegaly. Calcifications in the left upper abdomen likely phlebolithswithin the spleen. Calcifications are also seen in the right upper abdomen,uncertain location. No definite kidney stone or gallstone. No aggressivebone lesions.CONCLUSIONS: No acute findings.[facility] Notes Date/Time Note Provider Source 2023-06-11 13:14:26 qW5lw8twHNf/6M6eIZGj RLypnwC72DOocC AvV8VtqAiq5t6hev35u2Ye6ENVHrQ92481 T13:14:26 Written/verbal d/c instructions, out of er no distress 39633-8Cntegbgze department FfamTL0963-07-99V40:14:39Emergency department NoteTXT1.2.840.581950.1.13.104.2.7 .2.782756|[id number] for patient dqqc33611-9PtouDGMVTQFXNOKQnsjkqym d C-CDA narrative text[address] [id number] 37CJUFGMOJXUCCCJESSERVMC0643-60-23 T13:14:391.2.840.504353.1.72.3.15| 1.2.840.915523.1.13.104.2.7.2.7278 [id number] [facility] 2023-06-11 09:54:50 eoIL7yYjWCWnYo3Myv7h BtFUs/t9KFLzYL 9gdQigSOn5qtVieyGs6oXTVUVMcqjo1549 -01-22T09:54:50 Pablito Randolph is a 27 year old male c/o cough since yesterday,sore throat on the left side with ear pain since last night, 58704-7Sucxkeydn department Triage lelgDE3843-53-49Y20:58:47[facility] Triage noteTXT1.2.840.115955.1.13.104.2.7 .2.336569|[id number] for patient eerc82052-4Swkkhiwmo department NoteLNNARRATIVEFormatted C-CDA narrative [id number] M. Barton RN[address] O[id number] 59YAZHWHQPAWEGDMUQVNXJMT9841-23-81 T09:58:471.2.840.635303.1.72.3.15| 1.2.840.864834.1.13.104.2.7.2.7278 [id number] Kathi Steward RN [facility]"
--- NOTE | 2023-08-30 09:08 | EDPHYS ---
Physician Documentation [facility] Name: Pablito Randolph Age: 27 yrs Sex: Male : 1995 Arrival Date: 08/30/2023 Time: 08:12 Bed 10 Private MD: SLAVA Physician Simon Brower HPI: 08/29 08:59 This 27 yrs old Male presents to ER via Ambulatory with complaints of Sore shaun Throat. 08:59 The patient presents with sore throat. The patient describes throat pain as burning, shaun constant. Onset: The symptoms/episode began/occurred 1 day(s) ago. Severity of symptoms: At their worst the symptoms were mild, moderate, in the emergency department the symptoms are unchanged. Modifying factors: The symptoms are alleviated by nothing, the symptoms are aggravated by swallowing. Associated signs and symptoms: Pertinent positives: cough. Historical: - Allergies: 08:25 No Known Allergies; iw - Home Meds: 08:25 None [Active]; iw - PMHx: 08:25 ADD/ADHD; iw - PSHx: 08:25 Appendectomy; iw - Immunization history:: Adult Immunizations not up to date. - Infectious Disease History:: Denies. - Social history:: Smoking status: Reported history of juuling and/or vaping. - Family history:: not pertinent. ROS: 08:59 Constitutional: Negative for fever, chills, and weight loss, Eyes: Negative for injury, shaun pain, redness, and discharge, Neck: Negative for injury, pain, and swelling, Cardiovascular: Negative for chest pain, palpitations, and edema, Respiratory: Negative for shortness of breath, cough, wheezing, and pleuritic chest pain, Abdomen/GI: Negative for abdominal pain, nausea, vomiting, diarrhea, and constipation, Back: Negative for injury and pain, : Negative for injury, bleeding, discharge, and swelling, MS/Extremity: Negative for injury and deformity, Skin: Negative for injury, rash, and discoloration, Neuro: Negative for headache, weakness, numbness, tingling, and seizure, Psych: Negative for depression, anxiety, suicide ideation, homicidal ideation, and hallucinations, Allergy/Immunology: Negative for hives, rash, and allergies, Endocrine: Negative for neck swelling, polydipsia, polyuria, polyphagia, and marked weight changes, Hematologic/Lymphatic: Negative for swollen nodes, abnormal bleeding, and unusual bruising, 08:59 ENT: Positive for rhinorrhea, sore throat, Exam: 08:59 Constitutional: This is a well developed, well nourished patient who is awake, alert, shaun and in no acute distress. Head/Face: Normocephalic, atraumatic. Eyes: Pupils equal round and reactive to light, extra-ocular motions intact. Lids and lashes normal. Conjunctiva and sclera are non-icteric and not injected. Cornea within normal limits. Periorbital areas with no swelling, redness, or edema. Neck: Trachea midline, no thyromegaly or masses palpated, and no cervical lymphadenopathy. Supple, full range of motion without nuchal rigidity, or vertebral point tenderness. No Meningismus. Chest/axilla: Normal chest wall appearance and motion. Nontender with no deformity. No lesions are appreciated. Cardiovascular: Regular rate and rhythm with a normal S1 and S2. No gallops, murmurs, or rubs. Normal PMI, no JVD. No pulse deficits. Respiratory: Lungs have equal breath sounds bilaterally, clear to auscultation and percussion. No rales, rhonchi or wheezes noted. No increased work of breathing, no retractions or nasal flaring. Abdomen/GI: Soft, non-tender, with normal bowel sounds. No distension or tympany. No guarding or rebound. No evidence of tenderness throughout. Back: No spinal tenderness. No costovertebral tenderness. Full range of motion. Male : Normal genitalia with no discharge or lesions. Skin: Warm, dry with normal turgor. Normal color with no rashes, no lesions, and no evidence of cellulitis. MS/ Extremity: Pulses equal, no cyanosis. Neurovascular intact. Full, normal range of motion. Neuro: Awake and alert, GCS 15, oriented to person, place, time, and situation. Cranial nerves II-XII grossly intact. Motor strength 5/5 in all extremities. Sensory grossly intact. Cerebellar exam normal. Normal gait. Psych: Awake, alert, with orientation to person, place and time. Behavior, mood, and affect are within normal limits. 08:59 ENT: Posterior pharynx: Airway: no evidence of obstruction, Tonsils: bilaterally enlarged, with erythema, Uvula: midline, edematous, erythema, swelling, that is mild, erythema, that is mild, exudate, that is mild, peritonsillar mass, is not appreciated, Vital Signs: 08:23 BP 124 / 68; Pulse 67; Resp 16; Temp 98.7; Pulse Ox 99% on R/A; Weight 108.86 kg; iw Height 6 ft. 2 in. ; Pain 3/10; 09:55 BP 124 / 89; Pulse 79; Resp 16; Temp 98.1; Pulse Ox 100% on R/A; iw 08:23 Body Mass Index 30.81 (108.86 kg, 187.96 cm) iw 08:23 Pain Scale: Adult iw MDM: 08:17 Patient medically screened. [facility] 09:03 Differential diagnosis: apthous stomatitis, apthous ulcer, gingivostomatitis, group A shaun strep tonsillitis, influenza, laryngitis, peritonsillar abscess chlamydia pharyngitis, neisseria gonorrheoeae pharangitis, Mycoplasma Pharyngitis pharyngitis. Data reviewed: vital signs, nurses notes, lab test result(s), Flu: negative. Consideration of Admission/Observation Escalation of care including admission/observation considered. I considered the following discharge prescriptions or medication management in the emergency department Medications were administered in the Emergency Department. See MAR. Test considered but Not performed: EKG: no ekg. Care significantly affected by the following chronic conditions: Obesity, adfhd/add. 08/29 08:18 Order name: Strep [facility] 08/29 08:18 Order name: Flu [facility] 08/29 08:18 Order name: SARS RAPID; Complete Time: 09:40 [facility] 08/29 09:16 Order name: Throat Culture EDMS Administered Medications: 09:43 Drug: Dexamethasone IM 10 mg IM once Route: IM; Site: left ventrogluteal; iw 10:00 Follow up: Response: No adverse reaction iw 09:43 Drug: Amoxicillin-Clavulanate PO 875 mg PO once Route: PO; iw 10:00 Follow up: Response: No adverse reaction iw :44 Drug: AZITHromycin PO 500 mg PO once Route: PO; iw 10:00 Follow up: Response: No adverse reaction iw 09:44 Drug: Rocephin (cefTRIAXone) IM 1 grams IM once Route: IM; Site: left ventrogluteal; iw 10:00 Follow up: Response: No adverse reaction iw 09:44 Drug: AZITHromycin PO 500 mg PO once; repeat, yes Route: PO; iw 10:00 Follow up: Response: No adverse reaction iw Disposition Summary: 08/30/23 09:07 Discharge Ordered Notes: Location: Home [facility] Problem: new [facility] Symptoms: have improved shaun Condition: Stable shaun Diagnosis - Acute pharyngitis, unspecified - uvulitis shaun Followup: shaun - With: Private Physician - When: 2 - 3 days - Reason: Recheck today's complaints, Continuance of care, Re-evaluation by your physician Followup: shaun - With: Izabela Urrutia MD - When: 2 - 3 days - Reason: Recheck today's complaints, Re-evaluation by your physician Discharge Instructions: - Discharge Summary Sheet shaun - Pharyngitis shaun - Sore Throat shaun - Strep Throat, Adult shaun - Upper Respiratory Infection, Adult shaun - Pharyngitis, [id number] [facility] Forms: - Medication Reconciliation Form [facility] - Thank You Letter [facility] - Antibiotic Education [facility] - Prescription Opioid Use [facility] - Patient Portal Instructions [facility] - Leadership Thank You Letter [facility] - Work release form Prescriptions: - dexamethasone 4 mg Oral tablet - take 1 tablet ORAL route once daily; 4 tablet; Refills: 0, Product Selection [facility] Permitted - Beth-D 12 Hour 60-120 mg Oral Tablet Sustained Release 12 hr - take 1 tablet ORAL route every 12 hours As needed; 30 tablet; Refills: 0, [facility] Product Selection Permitted - Augmentin 875-125 mg Oral Tablet - take 1 tablet ORAL route every 12 hours for 10 days; 20 tablet; Refills: 0, [facility] Product Selection Permitted Signatures: Dispatcher [employer] EDSimon Call MD MD cha Williams, Irene RN RN iw Corrections: (The following items were deleted from the chart) 08:18 08:18 Group A Streptococcus Rapid Sc+BA.LAB.BRZ ordered. EDMS EDMS 08:18 08:18 Influenza Screen (A \T\ B)+BA.LAB.BRZ ordered. EDMS EDMS 08:18 08:18 SARS-COV-2 Antigen Rapid+I.LAB.BRZ ordered. EDMS EDMS
--- NOTE | 2023-08-30 09:08 | ER ---
Nurse's Notes [facility] Name: Pablito Randolph Age: 27 yrs Sex: Male : 1995 Arrival Date: 08/30/2023 Time: 08:12 Bed 10 Private MD: Diagnosis: Acute pharyngitis, unspecified-uvulitis Presentation: 08/29 08:23 Chief complaint: Patient states: throat started hurting last night, has a stuffy nose, iw took amoxicillin last night, my uvula is swollen now and I can't talk right. Coronavirus screen: Client presents with at least one sign or symptom that may indicate coronavirus-19. Ebola Screen: Patient negative for fever greater than or equal to 101.5 degrees Fahrenheit, and additional compatible Ebola Virus Disease symptoms Patient denies exposure to infectious person. Patient denies travel to an Ebola-affected area in the 21 days before illness onset. No symptoms or risks identified at this time. Initial Sepsis Screen: Does the patient meet any 2 criteria? No. Patient's initial sepsis screen is negative. Does the patient have a suspected source of infection? No. Patient's initial sepsis screen is negative. Risk Assessment: Do you want to hurt yourself or someone else? Patient reports no desire to harm self or others. Onset of symptoms was August 29, 2023. 08:23 Method Of Arrival: Ambulatory iw 08:23 Acuity: CHUY 3 iw Historical: - Allergies: 08:25 No Known Allergies; iw - Home Meds: 08:25 None [Active]; iw - PMHx: 08:25 ADD/ADHD; iw - PSHx: 08:25 Appendectomy; iw - Immunization history:: Adult Immunizations not up to date. - Infectious Disease History:: Denies. - Social history:: Smoking status: Reported history of juuling and/or vaping. - Family history:: not pertinent. Screenin:50 [facility] ED Fall Risk Assessment (Adult) Score/Fall Risk Level 0 - 2 = Low Risk. Abuse iw screen: Denies threats or abuse. Denies injuries from another. Nutritional screening: No deficits noted. Tuberculosis screening: No symptoms or risk factors identified. Assessment: 08:47 General: Appears in no apparent distress. Behavior is calm, cooperative. Pain: iw Complains of pain in throat. Cardiovascular: Patient's skin is warm and dry. Respiratory: Airway Respiratory effort is even, unlabored, Breath sounds are clear bilaterally. EENT: Throat swelling to uvula . Vital Signs: 08:23 BP 124 / 68; Pulse 67; Resp 16; Temp 98.7; Pulse Ox 99% on R/A; Weight 108.86 kg; iw Height 6 ft. 2 in. ; Pain 3/10; 09:55 BP 124 / 89; Pulse 79; Resp 16; Temp 98.1; Pulse Ox 100% on R/A; iw 08:23 Body Mass Index 30.81 (108.86 kg, 187.96 cm) iw 08:23 Pain Scale: Adult iw ED Course: 08:14 Patient arrived in ED. mr 08:17 Simon Brower MD is Attending Physician. shaun 08:25 Triage completed. iw 08:26 Vivian Arias, LEILA is Primary Nurse. iw 08:26 Arm band placed on. iw 09:00 Patient has correct armband on for positive identification. iw 09:10 Izabela Urrutia MD is Referral Physician. shaun 09:58 No provider procedures requiring assistance completed. Patient did not have IV access iw during this emergency room visit. Administered Medications: 09:43 Drug: Dexamethasone IM 10 mg IM once Route: IM; Site: left ventrogluteal; iw 10:00 Follow up: Response: No adverse reaction iw 09:43 Drug: Amoxicillin-Clavulanate PO 875 mg PO once Route: PO; iw 10:00 Follow up: Response: No adverse reaction iw 09:44 Drug: AZITHromycin PO 500 mg PO once Route: PO; iw 10:00 Follow up: Response: No adverse reaction iw 09:44 Drug: Rocephin (cefTRIAXone) IM 1 grams IM once Route: IM; Site: left ventrogluteal; iw 10:00 Follow up: Response: No adverse reaction iw 09:44 Drug: AZITHromycin PO 500 mg PO once; repeat, yes Route: PO; iw 10:00 Follow up: Response: No adverse reaction iw Medication: 09:00 VIS not applicable for this client. iw Outcome: 09:07 Discharge ordered by . shaun 09:58 Discharged to home ambulatory, iw 09:58 Condition: good 09:58 Discharge instructions given to patient, Instructed on discharge instructions, follow up and referral plans. medication usage, Demonstrated understanding of instructions, follow-up care, medications, Prescriptions given X 3, 09:59 Patient left the ED. iw Signatures: Simon Brower MD MD cha Rivera Madai, [facility] Reg Vivian Higgins RN RN iw Corrections: (The following items were deleted from the chart) 19:49 11:00 BP 124 / 89; Pulse 79bpm; Resp 16bpm; Pulse Ox 100% RA; Temp 98.1F; iw iw
[2023-08-30 09:16] LABS: SARS-CoV-2 Antigen CONTROL BLUE LINE VIS/BG OK; SARS-CoV-2 Antigen Rapid Res Negative (Negative)
[2023-08-30] MEDS ORDERED: CEFTRIAXONE 1000 MG/VIAL ONE (09:28)
[2023-08-30] MEDS ORDERED: dexAMETHasone 10 MG/ML VIAL ONE (09:29)
[2023-08-30] MEDS ORDERED: LIDOCAINE 1% MPF 5 ML VIAL ONE (09:29)
[2023-08-30] MEDS ORDERED: AMOX/K CLAV 875 MG TAB ONE (09:29)
[2023-08-30] MEDS ORDERED: AZITHROMYCIN 250 MG TAB ONE (09:29)
[2023-08-30 10:47] VITALS: BP 124/68; TEMP 98.7; O2SAT 99
== END 2023-08-30 09:59 | disposition home or self-care (01) ==
LOC: ER 08:12
DX: K12.2 Cellulitis and abscess of mouth (principal); Z11.52 Encounter for screening for COVID-19
CPT/HCPCS: 36415; 87070; 87081; 87804; 87811; 96372; 99284; J0696; J1100; J2001

== ENCOUNTER 2023-10-28 23:11 | Emergency (ER) | payer SELFPAY ==
--- OUTSIDE RECORDS SUMMARY | 2023-10-28 23:15 | XMS REPORT | Continuity of Care Document ---
Author Name Unknown Address [address] [place] [address] [facility] Address 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 Name Role Phone PCP, PATIENT DOES NOT HAVE A Primary Care Physic rory Unavailable Madhu VOGEL Attending Clinician Unavailable Madhu Frost Attending Clinician [phone] Doctor Unassigned, [place] Attending Clinician U navailGREGORIO Ordonez Attending Clinician Unavailable Gregorio Harris NP Attending Clinician [phone] DELANEY LAMBERT Attending Clinician Unavailable Pob1, Acute Care Clinic Attending Clinician Unav ailable Bella Crespo Attending Clinician [phone] BELLA BINGHAM Attending Clinician Unavailable Max Linares MD Attending Clinician [phone] Sophie Davenport Attending Clinician [phone] Lucas Rojas MD Attending Clinician [phone] SOPHIE BAY Attending Clinician Unavailable Marquise Palomino MD Attending Clinician [phone] Problems Condition Name Condition Details Condition Category Status Onset Date Resolution Date Last Treatment Date Treating Clinician Comments Source Upper respirator y tract infection, unspecifie d type Upper respirator y tract infection, unspecifie d type Disease Active 08-11 00:00: 00 [facility] Tobacco dependence Tobacco dependence Disease Active 08-11 00:00: 00 [facility] No known active problems No known active problems Disease [facility] Allergies, Adverse Reactions, Alerts Allergy Name Allergy Type Status Severity Reaction(s) Onset Date Inactive Date Treating Clinician Comments Source NO KNOWN ALLERGIE S Drug Class Active [facility] Social History Social Habit Start Date Stop Date Quantity Comments Source History SDOH Alcohol Frequency [facility] History SDOH Alcohol Std Drinks [facility] History SDOH Alcohol Binge [facility] Exposure to SARS-CoV-2 (event) Yes [facility] of tobacco use Cigarette Smoker [facility] History of Social function 2021-05-19 00:00:00 2021-05-19 00:00:00 [facility] Alcohol intake 2021-05-19 00:00:00 2021-05-19 00:00:00 Current drinker of alcohol (finding) [facility] Tobacco use and exposure 2019-08-13 00:00:00 2019-08-13 00:00:00 Smokeless tobacco non-user [facility] Cigarettes smoked current (pack per day) - Reported 2019-08-13 00:00:00 2019-08-13 00:00:00 [facility] Cigarette pack-years 2019-08-13 00:00:00 2019-08-13 00:00:00 [facility] Alcohol Comment 2019-08-13 00:00:00 2019-08-13 00:00:00 once a month [facility] Sex Assigned At 1995 00:00:00 1995 00:00:00 [facility] Smoking Status Start Date Stop Date Source Smokes tobacco daily 2019-08-13 00:00:00 [facility] Unknown if ever smoked [facility]ive [facility] Medications Ordered Medication Name Filled Medication Name Start Date Stop Date Current Medication? Ordering Clinician Indication Dosage Frequency Signature (SIG) Comments Components Source methylPREDN ISolone (MEDROL, ALPHONSE,) 4 mg tablets 06-11 00:00: 00 Yes [id number] Take by mouth SEE-INSTRU CTIONS. follow package directions [facility] amoxicillin 500 mg capsule 06-11 00:00: 00 06-22 05:59 :00 No [id number] 500mg Take 1 capsule by mouth in the morning and 1 capsule at noon and 1 capsule in the evening. Do all this for 10 days. [facility] azithromyci n (ZITHROMAX Z-ALPHONSE) 250 mg tablet 08-25 00:00: 00 Yes [id number] 250mg Take 1 tablet by mouth daily. Take 500 mg day 1, then 250 mg days 2 to 5. [facility] ibuprofen 600 mg tablet 09-19 00:00: 00 Yes 600mg Take 1 tablet by mouth every 6 (six) hours as needed for Pain (scale 4-6). [facility] acyclovir 200 mg capsule 2016-05 00:00: 00 Yes 800mg Take 4 capsules by mouth 5 (five) times daily. [facility] mupirocin (BACTROBAN) 2 % cream 2016-05 00:00: 00 Yes Apply to affected area(s) 3 (three) times daily. [facility] sulfamethox azole-trime thoprim 800-160 mg per tablet 2016-05 00:00: 00 Yes 1{tbl} Take 1 tablet by mouth every 12 (twelve) hours. [facility] amoxicillin 500 mg capsule 08-08 00:00: 00 Yes 500mg Take 1 capsule by mouth 3 (three) times daily. [facility] traMADOL (ULTRAM) 50 mg tablet 07-23 00:00: 00 Yes 50mg Take 1 tablet by mouth every 6 (six) hours as needed for Pain (scale 4-6). Juan José Brand PA-C / Jay Dsouza MD HALEY# [id number] DPS# [id number] x Lic.# [id number] [facility]# [id number] [facility] benzonatate 200 mg capsule 05-29 00:00: 00 Yes 200mg Take 1 capsule by mouth 3 (three) times daily as needed for Cough. [facility] azithromyci n 250 mg tablet 05-29 00:00: 00 Yes 250mg Take 1 tablet by mouth daily. [facility] No known medications No Un maría elena [facility] No known medications No Un maría elena [facility] No known medications No Un maría elena [facility] No known medications No Un maría elena [facility] No known medications [facility]s Vital Name Observation Time Observation Value Comments S ource Systolic blood pressure 2023-06-11 19:00:00 125 mm[Hg] [facility] Diastolic blood pressure 2023-06-11 19:00:00 75 mm[Hg] [facility] Heart rate 2023-06-11 19:00:00 82 /min [facility] Body temperature 2023-06-11 19:00:00 36.61 Sri [facility] Respiratory rate 2023-06-11 19:00:00 16 /min [facility] Oxygen saturation in Arterial blood by Pulse oximetry 2023-06-11 19:00:00 99 /min [facility] Body height 2023-06-11 15:57:00 188 cm [facility] Body weight 2023-06-11 15:57:00 109.77 kg [facility] BMI 2023-06-11 15:57:00 31.07 kg/m2 [facility] acute hospital Systolic blood pressure 2021-05-19 17:29:00 139 mm[Hg] [facility] Diastolic blood pressure 2021-05-19 17:29:00 74 mm[Hg] [facility] Heart rate 2021-05-19 17:29:00 85 /min [facility] Body temperature 2021-05-19 17:29:00 36.56 Sri [facility] Respiratory rate 2021-05-19 17:29:00 18 /min [facility] Body weight 2021-05-19 17:29:00 108.863 [facility] BMI 2021-05-19 17:29:00 30.81 kg/m2 [facility] Oxygen saturation in Arterial blood by Pulse oximetry 2021-05-19 17:29:00 99 /min [facility] Systolic blood pressure 2019-08-26 19:03:00 132 mm[Hg] [facility] Diastolic blood pressure 2019-08-26 19:03:00 85 mm[Hg] [facility] Heart rate 2019-08-26 19:03:00 103 /min [facility] Body temperature 2019-08-26 19:03:00 36.72 Sri [facility] Respiratory rate 2019-08-26 19:03:00 18 /min [facility] Body height 2019-08-26 19:03:00 188 cm [facility] Body weight 2019-08-26 19:03:00 108.863 kg Univ [facility] BMI 2019-08-26 19:03:00 30.81 kg/m2 [facility] Oxygen saturation in Arterial blood by Pulse oximetry 2019-08-26 19:03:00 100 /min [facility] Systolic blood pressure 2019-08-26 19:03:00 132 mm[Hg] [facility] Diastolic blood pressure 2019-08-26 19:03:00 85 mm[Hg] [facility] Heart rate 2019-08-26 19:03:00 103 /min [facility] Body temperature 2019-08-26 19:03:00 36.72 Sri [facility] Respiratory rate 2019-08-26 19:03:00 18 /min [facility] Body height 2019-08-26 19:03:00 188 cm [facility] Body weight 2019-08-26 19:03:00 108.863 kg Univ [facility] BMI 2019-08-26 19:03:00 30.81 kg/m2 [facility] Oxygen saturation in Arterial blood by Pulse oximetry 2019-08-26 19:03:00 100 /min [facility] Systolic blood pressure 2019-08-13 15:49:00 122 mm[Hg] [facility] Diastolic blood pressure 2019-08-13 15:49:00 79 mm[Hg] [facility] Heart rate 2019-08-13 15:49:00 72 /min [facility] Body temperature 2019-08-13 15:49:00 36.83 Sri [facility] Respiratory rate 2019-08-13 15:49:00 18 /min [facility] Body weight 2019-08-13 15:49:00 110.224 kg Univ [facility] BMI 2019-08-13 15:49:00 31.20 kg/m2 General acute hospital Oxygen saturation in Arterial blood by Pulse oximetry 2019-08-13 15:49:00 98 /min [facility] Systolic blood pressure 2019-08-13 15:49:00 122 mm[Hg] [facility] Diastolic blood pressure 2019-08-13 15:49:00 79 mm[Hg] [facility] Heart rate 2019-08-13 15:49:00 72 /min [facility] Body temperature 2019-08-13 15:49:00 36.83 Sri [facility] Respiratory rate 2019-08-13 15:49:00 18 /min [facility] Body weight 2019-08-13 15:49:00 110.224 kg General acute hospital BMI 2019-08-13 15:49:00 31.20 kg/m2 General acute hospital Oxygen saturation in Arterial blood by Pulse oximetry 2019-08-13 15:49:00 98 /min [facility] Systolic blood pressure 2018-12-19 17:58:00 115 mm[Hg] [facility] Diastolic blood pressure 2018-12-19 17:58:00 92 mm[Hg] [facility] Heart rate 2018-12-19 17:58:00 68 /min [facility] Respiratory rate 2018-12-19 17:58:00 18 /min [facility] Oxygen saturation in Arterial blood by Pulse oximetry 2018-12-19 17:58:00 98 /min [facility] Body temperature 2018-12-19 16:45:00 36.67 Sri [facility] Body height 2018-12-19 16:45:00 188 cm [facility] acute hospital Body weight 2018-12-19 16:45:00 109.77 kg General acute hospital BMI 2018-12-19 16:45:00 31.07 kg/m2 [facility] acute hospital Procedures Procedure Date / Time Performed Performing Clinicia n Source ASSIGNMENT OF BENEFITS 2023-06-11 17:25:49 Docchan r Unassigned, [place] [facility] RAPID STREP SCREEN FOR GROUP A 2023-06-11 16:57:00 Madhu Vogel [facility] NOTICE OF PRIVACY PRACTICES 2023-06-11 15:39:58 Doctor Unassigned, [place] [facility] CONSENT/REFUSAL FOR DIAGNOSIS AND TREATMENT 2023-06-11 15:37:54 Doctor Unassigned, [place] [facility] RAPID INFLUENZA A/B 2021-05-19 17:36:00 Gregorio Harris [facility] CONSENT/REFUSAL FOR DIAGNOSIS AND TREATMENT 2021-05-19 17:23:18 Doctor Unassigned, [place] [facility] POCT GRP A STREP (MOLECULAR) 2019-08-26 19:28:00 Rossy Ross [facility] ASSIGNMENT OF BENEFITS 2019-08-13 05:01:00 Docto r Unassigned, [place] [facility] XR KUB 2018-12-19 17:31:13 Marquise Palomino [facility] Encounters Start Date/Time End Date/Time Encounter Type Admission Type Attending Clinicians Care Facility Care Department Encounter ID Source 2023-06-11 09:59:00 2023-06-11 13:15:00 Emergency X Madhu VOGEL [facility] ERT [id number] [facility] 2023-06-11 09:59:00 2023-06-11 13:15:00 Emergency Madhu Vogel [facility] 1.2.840.114 350.1.13.10 4.2.7.2.686 [id number] [facility] 2023-06-11 00:00:00 2023-06-11 00:00:00 Orders Only Doctor Unassigned, [place] [facility] 1.2840.114 350.1.13.10 4.2.7.2.686 [id number] [facility] 2022-10-20 14:59:45 2022-10-20 14:59:45 Outpatient [facility] [id number] Albert Ruth 2021-05-19 11:36:00 2021-05-19 12:59:00 Emergency X GREGORIO HARRIS [facility] ERT [id number] [facility] 2021-05-19 11:36:00 2021-05-19 12:59:00 Emergency Gregorio Harris G [facility] 1.2840.114 350.1.13.10 4.2.7.2.686 [id number] [facility] 2020-08-21 15:00:00 2020-08-21 15:00:00 Outpatient Judi PETRA DELANEY [facility] [id number] [facility] 2019-08-26 13:54:03 2019-08-26 14:14:03 Urgent Care Pob1, Acute Care Clinic [facility] [address] 1.2840.114 350.1.13.10 4.2.7.2.686 [id number] 2019-08-26 13:54:03 2019-08-26 14:14:03 Urgent Care [facility] 1.840.114 350.1.13.10 4.2.7.2.686 [id number] [facility] 2019-08-26 13:40:00 2019-08-26 13:40:00 Outpatient R BELLA BINGHAM [facility] [id number] [facility] 2019-08-26 00:00:00 2019-08-26 00:00:00 Telephone Pob1, Acute Care [facility] 1.2.840.114 350.1.13.10 4.2.7.2.686 [id number] 2019-08-26 00:00:00 2019-08-26 00:00:00 Telephone Pob1, Acute [facility] 1.2.840.114 350.1.13.10 4.2.7.2.686 [id number] [facility] 2019-08-21 00:00:00 2019-08-21 00:00:00 Telephone Max Linares [facility] Building 1.2.840.114 350.1.13.10 4.2.7.2.686 [id number] [facility] 2019-08-21 00:00:00 2019-08-21 00:00:00 Telephone Max Linares [facility] Building 1.2.840.114 350.1.13.10 4.2.7.2.686 [id number] 2019-08-15 00:00:00 2019-08-15 00:00:00 Letter (Out) Sophie Bay [facility] Building 1.2.840.114 350.1.13.10 4.2.7.2.686 [id number] [facility] 2019-08-15 00:00:00 2019-08-15 00:00:00 Letter (Out) Sophie Bay [facility] Building 1.2.840.114 350.1.13.10 4.2.7.2.686 [id number] 2019-08-13 10:22:52 2019-08-13 11:31:16 Office Visit Pob1, Acute Care Clinic Lucas Rojas Leslie A [facility] [address] 1.2.840.114 350.1.13.10 4.2.7.2.686 [id number] [facility] 2019-08-13 10:22:52 2019-08-13 11:31:16 Office Visit Pob1, Acute Care Clinic [facility] [address] [facility] 1.2.840.114 350.1.13.10 4.2.7.2.686 [id number] 2019-08-13 10:40:00 2019-08-13 10:40:00 Outpatient R SOPHIE BAY [facility] [id number] [facility] 2019-08-13 00:00:00 2019-08-13 00:00:00 Orders Only Doctor Unassigned, [place] [facility] 1.2.840.114 350.1.13.10 4.2.7.2.686 [id number] [facility] 2019-08-13 00:00:00 2019-08-13 00:00:00 Orders Only Doctor Unassigned, [place] [facility] 1.2.840.114 350.1.13.10 4.2.7.2.686 [id number] 2018-12-19 11:41:09 2018-12-19 13:35:00 Emergency CandelarioMarquise [facility] 1.2840.114 350.1.13.10 4.2.7.2.686 [id number] [facility] Results Test Description Test Time Test Comments Results Result Co mments Source POCT GRP A STREP (MOLECULAR)2019-08-26 19:28:00* Test Item Value Reference Range Interpretation Comme nts POCT GP A STREP (test code = 07839-3) negative Negative - Negative Lab Interpretation (test cod e = [id number]) Normal [facility] [id number] 17:39:31HISTORY: Abdominal pain. FINDINGS: 2 abdominal images showed unremarkable intestinal gas pattern. Noorganomegaly. Calcifications in the left upper abdomen likely phlebolithswithin the spleen. Calcifications are also seen in the right upper abdomen,uncertain location. No definite kidney stone or gallstone. No aggressivebone lesions. CONCLUSIONS: No acute findings. [facility], Radiant Results Inft User -12/19/2018 12:39 PM CDTHISTORY: Abdominal pain.FINDINGS: 2 abdominal images showed unremarkable intestinal gas pattern. Noorganomegaly. Calcifications in the left upper abdomen likely phlebolithswithin the spleen. Calcifications are also seen in the right upper abdomen,uncertain location. No definite kidney stone or gallstone. No aggressivebone lesions.CONCLUSIONS: No acute findings.[facility] Notes Date/Time Note Provider Source 2023-06-11 13:14:26 [id number]:14:26F ormatting of this note might be different from the original.Written/verbal d/c instructions, [place] 28[address]-0Xkbaesbzq department UrqvGH6323-62-20D37:14:39Emergen department NoteTXT1.2.840.405880.1.13.104.2.7 .2.773101|[id number] for patient utuf27011-9GjucCSACXPJHPVYCjnrejmo d C-CDA narrative [address] Yu[id number] 42CRMRGCVDYJLGPCSNANGBKY4911-95-27 T13:14:391.2.840.366113.1.72.3.15| 1.2.840.476158.1.13.104.2.7.2.7278 [id number] [facility] 2023-06-11 09:54:50 3688-56-08K86:54:50F ormatting of this note might be different from the original.Pablito Randolph is a 27 year old male c/o cough since yesterday,sore throat on the left side with ear pain since last night, 78825-2Ktwaxqajw department Triage vefrDD7923-11-17P12:58:47Emergency department Triage noteTXT1.2.840.682537.1.13.104.2.7 .2.420020|[id number] for patient zkhz76737-8Koxljeaav department NoteLNNARRATIVEFormatted C-CDA narrative [id number] M. Barton RN[address] [id number] 06IIHBAIEQCFYXLAUDECXCUA4483-57-65 T09:58:471.2.840.779498.1.72.3.15| 1.2.840.824809.1.13.104.2.7.2.7278 [id number] Kathi Steward RN [facility]"
[2023-10-29 00:23] LABS: Anion Gap 9.6 mEq/L (5.0-15.0); Magnesium 1.8 mg/dL (1.6-2.4); Potassium 3.6 mEq/L (3.5-5.1); Troponin High Sensitivity 8.1 pg/mL (<58.9)
--- NOTE | 2023-10-29 02:00 | EDPHYS ---
Physician Documentation [facility] Name: Pablito Randolph Age: 27 yrs Sex: Male : 1995 Arrival Date: 10/28/2023 Time: 23:11 Bed 8 Private MD: ED Physician Иван Ewing HPI: 10/27 23:53 This 27 yrs old Male presents to ER via Ambulatory with complaints of Numbness , rn slurred speech. 23:53 The patient's problem is reported as paresthesias, dysphasia, slurred speech. Onset: rn The symptoms/episode began/occurred 1 week(s) ago. Duration: The episodes are intermittent. The symptoms are alleviated by nothing. The symptoms are aggravated by nothing. Severity of symptoms: At their worst the symptoms were moderate in the emergency department the symptoms have resolved. The patient has experienced similar episodes in the past. Patient reports a week of intermittent symptoms of paresthesia from epigastric region up to head and arms. Brief episodes, has had them for years and has attributed them to times that he drinks sweet tea. Currently back to normal and asymptomatic. No chest pain or shortness of breath. Does not take any medication or supplements. Patient states had subjective slurred speech yesterday as well. Patient does not know what has caused these other than his association with sweet tea. Does not have this with any other caffeinated drinks. Not associated with headache or other neurological deficit. Last for few minutes and resolves. No family history of early stroke or brain tumor or aneurysm.. Historical: - Allergies: 23:33 No Known Allergies; kb3 - Home Meds: 23:33 None [Active]; kb3 - PMHx: 23:33 ADD/ADHD; kb3 - PSHx: 23:33 Appendectomy; kb3 - Immunization history:: Adult Immunizations up to date, Client reports having NOT received the Covid vaccine. Last tetanus immunization: up to date. - Infectious Disease History:: Denies. - Social history:: Smoking status: Reported history of juuling and/or vaping. Patient uses alcohol, occasionally. - Family history:: not pertinent. - Hospitalizations: : No recent hospitalization is reported. ROS: 23:53 Constitutional: Negative for fever, chills, and weight loss, Neck: Negative for injury, rn pain, and swelling, Cardiovascular: Negative for chest pain, palpitations, and edema, Respiratory: Negative for shortness of breath, cough, wheezing, and pleuritic chest pain, Abdomen/GI: Negative for abdominal pain, nausea, vomiting, diarrhea, and constipation, Back: Negative for injury and pain, MS/Extremity: Negative for injury and deformity, Skin: Negative for injury, rash, and discoloration, Neuro: Positive for numbness and tingling to upper torso and head Exam: 23:53 Constitutional: This is a well developed, well nourished patient who is awake, alert, rn and in no acute distress. Ambulatory to room without difficulty or assistance Head/Face: Normocephalic, atraumatic. Eyes: Pupils equal round and reactive to light, extra-ocular motions intact. Lids and lashes normal. Conjunctiva and sclera are non-icteric and not injected. Cornea within normal limits. Periorbital areas with no swelling, redness, or edema. Neck: Trachea midline, no masses palpated, and no cervical lymphadenopathy. Supple, full range of motion without nuchal rigidity, or vertebral point tenderness. No Meningismus. Cardiovascular: Regular rate and rhythm. No pulse deficits. Respiratory: No increased work of breathing, no retractions or nasal flaring. Abdomen/GI: Soft, non-tender MS/ Extremity: Pulses equal, no cyanosis. Neuro: Awake and alert, GCS 15, oriented to person, place, time, and situation. Cranial nerves II-XII grossly intact. Motor strength 5/5 in all extremities. Sensory grossly intact. Cerebellar exam normal. Normal gait. 10/28 01:07 ECG was reviewed by the Attending Physician. rn Vital Signs: 10/27 23:31 BP 145 / 90; Pulse 100; Resp 20; Temp 97.9; Pulse Ox 100% ; Weight 90.72 kg; Height 6 kb3 ft. 2 in. ; 10/28 00:30 BP 109 / 77; Pulse 87; Resp 18 S; Pulse Ox 97% on R/A; jw7 01:30 BP 120 / 78; Pulse 64; Resp 16 S; Pulse Ox 97% on R/A; jw7 02:00 BP 116 / 75; Pulse 64; Resp 17 S; Temp 98.1; Pulse Ox 97% on R/A; ha1 10/27 23:31 Body Mass Index 25.68 (90.72 kg, 187.96 cm) kb3 MDM: 10/27 23:21 Patient medically screened. rn 10/28 01:57 Differential diagnosis: CVA, TIA, metabolic disorder, Acute stress reaction, rn electrolyte disorder, diabetes, dehydration. Data reviewed: vital signs, nurses notes, lab test result(s), EKG, radiologic studies, CT scan, and as a result, I will discharge patient. Counseling: I had a detailed discussion with the patient and/or guardian regarding the historical points, exam findings, and any diagnostic results supporting the discharge/admit diagnosis, lab results, radiology results, the need for outpatient follow up, to return to the emergency department if symptoms worsen or persist or if there are any questions or concerns that arise at home. Special discussion: I discussed with the patient/guardian in detail that at this point there is no indication for admission to the hospital. It is understood, however, that if the symptoms persist or worsen the patient needs to return immediately for re-evaluation. Based on the history and exam findings, there is no indication for further emergent testing or inpatient evaluation. I discussed with the patient/guardian the need to see the primary care provider for further evaluation of the symptoms. ED course: No acute findings and workup. Normal vital signs. Back to baseline. Most likely acute stress reaction or hypersensitivity to certain ingredients. I have personally reviewed all of the results, including but not limited to blood tests and imaging deemed necessary to safely discharge this patient at this time. All results given to and printed out for patient. I personally went over all the results with the patient and answered all questions. Patient will follow-up with PCP and or specialist as discussed. Return precautions given and understood.. 10/27 23:41 Order name: Basic Metabolic Panel; Complete Time: rn 10/27 23:41 Order name: CBC with Diff; Complete Time: rn 10/27 23:41 Order name: Troponin HS; Complete Time: rn 10/27 23:41 Order name: Magnesium; Complete Time: rn 10/28 00:01 Order name: Glucose, Ancillary Testing; Complete Time: EDMS 10/28 00:03 Order name: Glucose, Ancillary Testing EDMS 10/27 23:41 Order name: CT Head Brain wo Cont rn 10/27 23:41 Order name: Neck Angio CT rn 10/27 23:41 Order name: Head Angio CT rn 10/27 23:41 Order name: XRAY Chest (1 view) rn 10/27 23:41 Order name: Cardiac monitoring; Complete Time: 23:47 rn 10/27 23:41 Order name: EKG - Nurse/Tech; Complete Time: 23:45 rn 10/27 23:41 Order name: IV Saline Lock; Complete Time: 23:45 rn 10/27 23:41 Order name: Labs collected and sent; Complete Time: 23:45 rn 10/27 23:41 Order name: O2 Per Protocol; Complete Time: 23:47 rn 10/27 23:41 Order name: O2 Sat Monitoring; Complete Time: 23:45 rn EC:07 Rate is 87 beats/min. Rhythm is regular. QRS [place] is Normal. HI interval is normal. QRS rn interval is normal. QT interval is normal. No Q waves. T waves are Normal. No ST changes noted. Clinical impression: Normal ECG. Interpreted by me. Reviewed by me. Administered Medications: No medications were administered Disposition Summary: 10/29/23 01:59 Discharge Ordered Notes: Location: Home rn Problem: an ongoing problem rn Symptoms: have improved rn Condition: Stable rn Diagnosis - Paresthesia of skin rn - Acute stress reaction rn Followup: rn - With: Private Physician - When: As needed - Reason: Recheck today's complaints, Re-evaluation by your physician Discharge Instructions: - Discharge Summary Sheet rn - Paresthesia rn - Stress, Adult rn Forms: - Medication Reconciliation Form rn - Antibiotic rn traveling - Prescription Opioid Use rn - Patient Portal Instructions rn - Leadership Thank You Letter rn Signatures: Dispatcher [facility] Иван Ewing MD MD rn Bradberry, Kelly RN RN kb3 Corrections: (The following items were deleted from the chart) 10/27 23:41 23:41 BASIC METABOLIC PANEL+C.LAB.BRZ ordered. EDMS EDMS 23:41 23:41 CBC+H.LAB.BRZ ordered. EDMS EDMS 23:41 23:41 Troponin High Sensitivity+C.LAB.BRZ ordered. EDMS EDMS 23:41 23:41 Chest Single View+RAD.RAD.BRZ ordered. EDMS EDMS 23:41 23:41 MAGNESIUM+C.LAB.BRZ ordered. EDMS EDMS 23:56 23:53 Constitutional: This is a well developed, well nourished patient who is awake, rn alert, and in no acute distress. Ambulatory to room without difficulty or assistance Head/Face: Normocephalic, atraumatic. Cardiovascular: Regular rate and rhythm. No pulse deficits. Respiratory: No increased work of breathing, no retractions or nasal flaring. Abdomen/GI: Soft, non-tender MS/ Extremity: Pulses equal, no cyanosis. Neuro: Awake and alert, GCS 15, oriented to person, place, time, and situation. Cranial nerves II-XII grossly intact. Motor strength 5/5 in all extremities. Sensory grossly intact. Cerebellar exam normal. Normal gait. rn
--- NOTE | 2023-10-29 02:00 | ER ---
Nurse's Notes [facility] Name: Pablito Randolph Age: 27 yrs Sex: Male : 1995 Arrival Date: 10/28/2023 Time: 23:11 Bed 8 Private MD: Diagnosis: Paresthesia of skin;Acute stress reaction Presentation: 10/27 23:31 Chief complaint: Patient states: Pt reports intermittent slurring of speech and kb3 impaired memory xseveral days. Also reports 1 episode of numbness from waist up that lasted approximately 15 minutes, occurred today. Coronavirus screen: Vaccine status: Patient reports being unvaccinated. Client denies travel out of the [place] in the last 14 days. Ebola Screen: Patient negative for fever greater than or equal to 101.5 degrees Fahrenheit, and additional compatible Ebola Virus Disease symptoms Patient denies exposure to infectious person. Patient denies travel to an Ebola-affected area in the 21 days before illness onset. No acute neurological deficit is noted. Initial Sepsis Screen: Does the patient meet any 2 criteria? No. Patient's initial sepsis screen is negative. Does the patient have a suspected source of infection? No. Patient's initial sepsis screen is negative. Risk Assessment: Do you want to hurt yourself or someone else? Patient reports no desire to harm self or others. Onset of symptoms is unknown. 23:31 Method Of Arrival: Ambulatory 3 23:31 Acuity: CHUY 2 kb3 Triage Assessment: 23:33 The onset of the patients symptoms was at an unknown time. General: Appears in no kb3 apparent distress. Behavior is calm, cooperative. Pain: Denies pain. Neuro: No deficits noted. Reports numbness 1 episode lasting 15 minutes to day, numbness from waist up, bilaterally. Historical: - Allergies: 23:33 No Known Allergies; kb3 - Home Meds: 23:33 None [Active]; kb3 - PMHx: 23:33 ADD/ADHD; kb3 - PSHx: 23:33 Appendectomy; kb3 - Immunization history:: Adult Immunizations up to date, Client reports having NOT received the Covid vaccine. Last tetanus immunization: up to date. - Infectious Disease History:: Denies. - Social history:: Smoking status: Reported history of juuling and/or vaping. Patient uses alcohol, occasionally. - Family history:: not pertinent. - Hospitalizations: : No recent hospitalization is reported. Screenin:30 Abuse screen: Denies threats or abuse. Denies injuries from another. jw7 23:30 [facility] ED Fall Risk Assessment (Adult) History of falling in the last 3 months, jw7 including since admission No falls in past 3 months (0 pts) Confusion or Disorientation No (0 pts) Intoxicated or Sedated No (0 pts) Impaired Gait No (0 pts) Mobility Assist Device Used No (0 pt) Altered Elimination No (0 pt) Score/Fall Risk Level 0 - 2 = Low Risk Oriented to surroundings, Maintained a safe environment, Educated pt \T\ family on fall prevention, incl call for assistance when getting out of bed. Nutritional screening: No deficits noted. Tuberculosis screening: No symptoms or risk factors identified. Assessment: 23:26 General: Appears comfortable, Behavior is calm, cooperative. Pain: Denies pain. Neuro: ha1 Level of Consciousness is awake, alert, obeys commands, Oriented to person, place, time, situation. Neuro: Reports numbness AFTER DRINKING SWEET TEA. NUMBNESS FROM MID WAIST TO THE HEAD. SIMILAR EVENT PRIOR AFTER DRINKING TEA. Cardiovascular: Capillary refill < 3 seconds Patient's skin is warm and dry. Respiratory: Airway is patent Respiratory effort is even, unlabored, Respiratory pattern is regular, symmetrical. GI: No signs and/or symptoms were reported involving the gastrointestinal system. Abdomen is round non-distended. : No signs and/or symptoms were reported regarding the genitourinary system. Derm: Skin is pink, warm \T\ dry. Musculoskeletal: Circulation, motion, and sensation intact. Range of motion: intact in all extremities. 10/28 00:30 Reassessment: Patient appears in no apparent distress at this time. Patient and/or jw7 family updated on plan of care and expected duration. Pain level reassessed. Patient is alert, oriented x 3, equal unlabored respirations, skin warm/dry/pink. 01:06 Reassessment: Patient and/or family updated on plan of care and expected duration. Pain ha1 level reassessed. Patient is alert, oriented x 3, equal unlabored respirations, skin warm/dry/pink. 02:00 Reassessment: Patient and/or family updated on plan of care and expected duration. Pain ha1 level reassessed. Patient is alert, oriented x 3, equal unlabored respirations, skin warm/dry/pink. Patient denies pain at this time. Vital Signs: 10/27 23:31 BP 145 / 90; Pulse 100; Resp 20; Temp 97.9; Pulse Ox 100% ; Weight 90.72 kg; Height 6 kb3 ft. 2 in. ; 10/28 00:30 BP 109 / 77; Pulse 87; Resp 18 S; Pulse Ox 97% on R/A; jw7 01:30 BP 120 / 78; Pulse 64; Resp 16 S; Pulse Ox 97% on R/A; jw7 02:00 BP 116 / 75; Pulse 64; Resp 17 S; Temp 98.1; Pulse Ox 97% on R/A; ha1 10/27 23:31 Body Mass Index 25.68 (90.72 kg, 187.96 cm) kb3 ED Course: 10/27 23:14 Patient arrived in ED. ra3 23:15 Toshia Hayes FNP-C [facility]. kb 23:21 Иван Ewing MD is Attending Physician. rn 23:30 Patient has correct armband on for positive identification. Bed in low position. Call jw7 light in reach. Side rails up X 1. Provided Education on: Use of Call Light. 23:33 Triage completed. kb3 23:33 Arm band placed on right wrist. Patient placed in an exam room, on a stretcher. kb3 23:46 Door closed. Noise minimized. kmf 23:47 Kita Hernandez, RN is Primary Nurse. ha1 23:47 Basic Metabolic Panel Sent. ha1 23:47 CBC with Diff Sent. ha1 23:47 Troponin HS Sent. ha1 23:47 Magnesium Sent. ha1 10/28 00:13 XRAY Chest (1 view) In Process Unspecified. EDMS 00:55 CT Head Brain wo Cont In Process Unspecified. EDMS 00:[address] In Process Unspecified. EDMS 00:[address] In Process Unspecified. EDMS 02:02 No provider procedures requiring assistance completed. jw7 02:30 IV discontinued, intact, bleeding controlled, No redness/swelling at site. Pressure ha1 dressing applied. Administered Medications: No medications were administered Medication: 02:02 VIS not applicable for this client. jw7 Outcome: 01:59 Discharge ordered by . rn 02:30 Patient left the ED. ha1 02:30 Discharged to home ambulatory, with family, ha1 02:30 Condition: stable 02:30 Discharge instructions given to patient, family, Instructed on discharge instructions, follow up and referral plans. Demonstrated understanding of instructions, follow-up care, Signatures: Dispatcher [employer] EDOR Toshia Hayes, FABRIC AWNING REPAIRER-C FABRIC AWNING REPAIRER-Ckb Иван Ewing MD MD rn Waits, Jodi RN RN jw7 Kita Hernandez RN RN ha1 Rekha Matute RN RN kb3 Anila Alvarez Violeta Pinon ra3 Corrections: (The following items were deleted from the chart) 02:35 02:33 Patient left the ED. ha1 ha1
[2023-10-29 02:41] VITALS: BP 120/78; TEMP 97.9; O2SAT 97
--- NOTE | 2023-10-29 14:15 | RAD REPORT ---
EXAM DESCRIPTION: Chest Single View RP: XR CHEST 1 VIEW CLINICAL HISTORY: 27 years Male; paresthesia; Bed Name: 8 COMPARISON: None. FINDINGS: Lungs: Lungs are clear, with no focal infiltrate, pneumothorax, or pleural effusion. Mediastinum: Mediastinum is within normal limits for this positioning. Bones: Bony structures are unremarkable. IMPRESSION: 1. No acute pulmonary findings. Electronically signed by: Hemanth Irwin MD 10/29/2023 12:24 AM CDT RP Workstation: [id number] Due to temporary technical issues with the PACS/Fluency reporting system, reports are being signed by the in house radiologist without review as a courtesy to ensure prompt reporting. The interpreting r adiologist is fully responsible for the content of the report.
--- NOTE | 2023-10-29 14:16 | RAD REPORT ---
EXAM DESCRIPTION: Neck Angio (accession [id number]), Head angio (accession [id number]) 10/29/2023 1:19 AM CDT CLINICAL HISTORY: 27 years, Male, paresthesia COMPARISON: None TECHNIQUE: Multiple transaxial tomograms from the aortic arch through the brain were performed after administration of large bolus of IV contrast the for complete opacification of the carotid arteries and intracranial vessels. Subsequent 2-D and 3-D multiplanar reformats, volume rendering technique and maximum intensity projec tion images were generated and reviewed An individualized dose optimization technique, Automated Exposure Control, was utilized for the perfo rmed procedure. CAROTID STENOSIS REFERENCE USING NASCET CRITERIA: % ICA stenosis = (1 - narrowest ICA diameter/diamet er of distal cervical ICA) x 100. Mild - <50% stenosis. Moderate - 50-69% stenosis. Severe - 70-94% stenosis. Near occlusion - 95-99% stenosis. Occluded - 100% stenosis. FINDINGS: Ascending aorta: There is a normal branching pattern of the great vessels off the arch. There are codominant vertebral arteries which demonstrate normal opacification. No great vessel o rigin stenosis is identified. Right carotid artery: Normal opacification is demonstrated within the right common carotid artery and at the carotid bifurcation. The carotid bulb demonstrate to be within normal limits. No evidence for stenosis. The proximal, mid and distal portion of the right internal carotid artery demonstrated to be patent. No evidence for stenosis and/or occlusion. Left carotid artery: Normal opacification is demonstrated within the left common carotid artery and at the carotid bifurcation. The carotid bulb demonstrate to be within normal limits. No evidence for stenosis. The proximal, mid and distal portion of the left internal carotid artery demonstrated to b e patent. No evidence for stenosis and/or occlusion. Intracranial circulation: Intracranial portions of the internal carotid arteries the cavernous sinus portions demonstrates no focal areas of significant stenosis and/or aneurysm. The anterior cerebral a rteries, middle cerebral arteries and its branches demonstrate normal opacification with no evidence for stenosis, occlusion and/or aneurysm. There is normal venous drainage with no evidence for sinus v ein thrombosis. Vertebrobasilar system: The posterior circulation demonstrate codominant bilateral vertebral arteries with no evidence for stenosis and/or evidence for significant dissection. The vertebrobasilar system and [employer] demonstrate to be normal with no evidence for aneurysm and/or occlusion. The brain parenchyma demonstrate normal kwon-white matter differentiation with no evidence for mass e ffect and/or midline shift. There is no evidence for abnormal parenchymal enhancement. The skull base and intracranial structures demonstrate to be within normal limits. There is hypoplast ic/opacification of the right maxillary sinus. Ligaments the presence of a prominent bilateral main the right submandibular lymph nodes. Lung apex: No gross abnormalities are noted within the apices. IMPRESSION: No evidence for significant stenosis and/or occlusion involving the intracranial or extr acranial carotid arteries. Opacified hypoplastic right maxillary sinus. Prominent bilateral main the right submandibular lymph nodes, nonspecific and may be reactive. Electronically signed by: Seamus Chino MD 10/29/2023 01:23 AM CDT RP Due to temporary technical issues with the PACS/Fluency reporting system, reports are being signed by the in house radiologist without review as a courtesy to ensure prompt reporting. The interpreting r adiologist is fully responsible for the content of the report.
--- NOTE | 2023-10-29 14:16 | RAD REPORT ---
EXAM DESCRIPTION: Neck Angio (accession [id number]), Head angio (accession [id number]) 10/29/19 24 1:19 AM CDT CLINICAL HISTORY: 27 years, Male, paresthesia COMPARISON: None TECHNIQUE: Multiple transaxial tomograms from the aortic arch through the brain were performed after administration of large bolus of IV contrast the for complete opacification of the carotid arteries and intracranial vessels. Subsequent 2-D and 3-D multiplanar reformats, volume rendering technique and maximum intensity projec tion images were generated and reviewed An individualized dose optimization technique, Automated Exposure Control, was utilized for the perfo rmed procedure. CAROTID STENOSIS REFERENCE USING NASCET CRITERIA: % ICA stenosis = (1 - narrowest ICA diameter/diamet er of distal cervical ICA) x 100. Mild - <50% stenosis. Moderate - 50-69% stenosis. Severe - 70-94% stenosis. Near occlusion - 95-99% stenosis. Occluded - 100% stenosis. FINDINGS: Ascending aorta: There is a normal branching pattern of the great vessels off the arch. There are codominant vertebral arteries which demonstrate normal opacification. No great vessel o rigin stenosis is identified. Right carotid artery: Normal opacification is demonstrated within the right common carotid artery and at the carotid bifurcation. The carotid bulb demonstrate to be within normal limits. No evidence for stenosis. The proximal, mid and distal portion of the right internal carotid artery demonstrated to be patent. No evidence for stenosis and/or occlusion. Left carotid artery: Normal opacification is demonstrated within the left common carotid artery and at the carotid bifurcation. The carotid bulb demonstrate to be within normal limits. No evidence for stenosis. The proximal, mid and distal portion of the left internal carotid artery demonstrated to b e patent. No evidence for stenosis and/or occlusion. Intracranial circulation: Intracranial portions of the internal carotid arteries the cavernous sinus portions demonstrates no focal areas of significant stenosis and/or aneurysm. The anterior cerebral a rteries, middle cerebral arteries and its branches demonstrate normal opacification with no evidence for stenosis, occlusion and/or aneurysm. There is normal venous drainage with no evidence for sinus v ein thrombosis. Vertebrobasilar system: The posterior circulation demonstrate codominant bilateral vertebral arteries with no evidence for stenosis and/or evidence for significant dissection. The vertebrobasilar system and [employer] demonstrate to be normal with no evidence for aneurysm and/or occlusion. The brain parenchyma demonstrate normal kwon-white matter differentiation with no evidence for mass e ffect and/or midline shift. There is no evidence for abnormal parenchymal enhancement. The skull base and intracranial structures demonstrate to be within normal limits. There is hypoplast ic/opacification of the right maxillary sinus. Ligaments the presence of a prominent bilateral main the right submandibular lymph nodes. Lung apex: No gross abnormalities are noted within the apices. IMPRESSION: No evidence for significant stenosis and/or occlusion involving the intracranial or extr acranial carotid arteries. Opacified hypoplastic right maxillary sinus. Prominent bilateral main the right submandibular lymph nodes, nonspecific and may be reactive. Electronically signed by: Seamus Chino MD 10/29/2023 01:23 AM CDT RP Due to temporary technical issues with the PACS/Fluency reporting system, reports are being signed by the in house radiologist without review as a courtesy to ensure prompt reporting. The interpreting r adiologist is fully responsible for the content of the report.
--- NOTE | 2023-10-29 14:19 | RAD REPORT ---
EXAM DESCRIPTION: Head Brain Wo Cont 10/29/2023 1:18 AM CDT CLINICAL HISTORY: 27 years, Male, NUMBNESS COMPARISON: None FINDINGS: Multiple transaxial tomograms of the brain were obtained from the base of the skull to the vertex without contrast. An individualized dose optimization technique, Automated Exposure Control, was utilized for the perfo rmed procedure. BRAIN: Brain parenchyma as well as the kwon-white matter differentiation demonstrate to be within nor mal limits. There is no evidence for acute intraparenchymal hemorrhage. There is no midline shifts an d/or mass effect. No focal areas of hypodensities. VENTRICLES: Lateral ventricles and cisterns displace normal appearance. VASCULATURE: No visualized abnormalities in the arteries or dural venous sinuses. SCALP/SKULL: The calvarium demonstrate to be intact with no evidence for acute bony injuries. SINUSES: The visualized paranasal sinuses and mastoid air cells demonstrate to be clear. ORBITS: No significant abnormalities in the visualized orbital structures. IMPRESSION: No evidence for acute intraparenchymal hemorrhage. Unremarkable CT scan of the head without contrast. Electronically signed by: Seamus Chino MD 10/29/2023 01:19 AM CDT RP Due to temporary technical issues with the PACS/Fluency reporting system, reports are being signed by the in house radiologist without review as a courtesy to ensure prompt reporting. The interpreting r adiologist is fully responsible for the content of the report.
--- NOTE | 2023-10-30 15:11 | EKG ---
Test Date: 2023-10-28 Test Time: 23:39:21 Manager Of Training: YUKI MEASUREMENT RESULTS: Intervals: Rate: 87 TN: 140 QRSD: 108 QT: 360 QTc: 433 [place]: P: 60 TN: 140 QRS: 41 T: 21 INTERPRETIVE STATEMENTS: Normal sinus rhythm Normal ECG No previous ECG available for comparison Electronically Signed On 10-30-23 15:06:48 CDT by Natanael Carver
== END 2023-10-29 02:33 | disposition home or self-care (01) ==
LOC: ER 23:11
DX: R20.2 Paresthesia of skin (principal); F43.0 Acute stress reaction
CPT/HCPCS: 36415; 70450; 70496; 70498; 71045; 80048; 82947; 83735; 84484; 85025; 93005; 99283; Q9967